=== PATIENT | male | born 1960 | race Two or more races ===

== ENCOUNTER 2020-12-19 06:18 | Outpatient (REF) | payer OTHER, SELFPAY ==
[2020-12-19 07:00] LABS: MANUAL DIFF FLAG NO
[2020-12-19 07:11] LABS: Basophils Percent Auto 0.5 % (0-2); Eosinophils Absolute Auto 0.2 X10*3/uL (0.0-0.4); Eosinophils Percent Auto 2.5 % (0-4); Hematocrit 43.1 % (42-52); Hemoglobin 14.6 g/dl (14.0-18.0); Imm Gran Abs Auto 0.02 X10*3/uL (0.00-0.03); Imm Gran Pct Auto 0.3 % (0.0-0.4); Lymphocytes Absolute Auto 2.4 X10*3/uL (1.2-4.9); Lymphocytes Percent Auto 40.1 % (20-40); Mean Corpuscular HGB Conc 33.9 g/dl (31.0-36.0); Mean Corpuscular Hemoglobin 32.2 pg (27.0-33.0); Mean Corpuscular Volume 94.9 fL (80-98); Mean Platelet Volume 9.6 fL (9.4-12.4); Monocytes Absolute Auto 0.6 X10*3/uL (0.1-1.2); Monocytes Percent Auto 10.8 % (2-11); Neutrophils Absolute Auto 2.7 X10*3/uL (2.0-8.3); Neutrophils Percent Auto 45.8 % (45-73); Platelet Count 248 X10*3/uL (160-400); Red Blood Count 4.54 X10*6/uL (4.60-5.80); Red Cell Distribution Width 11.9 % (11.0-16.0); White Blood Count 5.9 X10*3/uL (4.8-10.8)
[2020-12-19 07:26] LABS: Alanine Aminotransferase 28 U/L (0-40); Albumin Level 4.4 g/dL (3.5-5.0); Alkaline Phosphatase 92 U/L (39-117); Anion Gap 13 (12-20); Aspartate Amino Transferase 18 U/L (5-37); Bilirubin Total 0.8 mg/dL (0.0-1.0); Blood Urea Nitrogen 18 mg/dL (9-16); Calcium 9.4 mg/dL (8.4-10.2); Carbon Dioxide 30 mmol/L (22-29); Chloride 101 mmol/L (96-108); Cholesterol 122 mg/dL; Estimated Glomerular Filt Rate > 60; Glucose Fasting 234 mg/dL (60-99); HDL Cholesterol 47 mg/dL; LDL Cholesterol Calculated 52 mg/dl; Potassium 4.8 mmol/L (3.3-5.1); Sodium 139 mmol/L (135-145); Total Protein 7.5 g/dL (6.5-8.0); Triglycerides 118 mg/dL
[2020-12-19 07:28] LABS: Creatinine Urine 164.51 mg/dL; Microalbum/Creatinine Ratio Ur 19.4 ug/mg cr
[2020-12-19 07:48] LABS: Prostate Specific Antigen Scr 1.48 ng/mL (<0.05-4.0); Thyroid Stimulating Hormone 2.45 uIU/mL (0.32-4.0)
[2020-12-19 08:06] LABS: Estimated Average Glucose 177 mg/dL; Hemoglobin A1c % 7.8 %
[2020-12-23 13:11] LABS: Vitamin D 25-OH, D2 <4 ng/mL; Vitamin D 25-OH, D3 18 ng/mL; Vitamin D 25-OH, Total 18 ng/mL (30-100)
== END 2020-12-19 06:19 | disposition home or self-care (01) ==
LOC: HO.LAB 06:18
PROVIDERS: PCP Internal Medicine; Visit Provider Internal Medicine
DX: Z12.5 Encounter for screening for malignant neoplasm of prostate (principal); E11.65 Type 2 diabetes mellitus with hyperglycemia; E78.5 Hyperlipidemia, unspecified; R53.83 Other fatigue; N39.43 Post-void dribbling
CPT/HCPCS: 36415; 80053; 80061; 82043; 82306; 83036; 84153; 84443; 85025

== ENCOUNTER 2021-01-06 09:10 | Outpatient (REF) | payer OTHER, SELFPAY ==
--- NOTE | ~2021-01-06 | XR_ITS ---
EXAMINATION: XR THORACOLUMBAR SPINE CLINICAL INFORMATION: Pain in thoracic spine. COMPARISON: None TECHNIQUE: The thoracic spine is imaged in 3 views. FINDINGS: There is normal thoracic segmentation with 12 rib-bearing thoracic vertebrae of normal height and normal thoracic kyphosis. There is no thoracic vertebral compression, spondylolisthesis, destructive process, or paraspinal soft tissue swelling. There are changes suggesting diffuse idiopathic skeletal hyperostosis with scattered ossification anterior spinal ligament and partially bridging anterior and some lateral osteophytes. There is no focal significant disc narrowing. No erosive change. There has been prior median sternotomy. XR/XR thoracic spine 2V IMPRESSION: 1. No thoracic vertebral compression, spondylolisthesis, or destructive process. 2. Scattered ossification anterior spinal ligament with multilevel partially bridging anterior and right lateral osteophytes suggesting diffuse idiopathic skeletal hyperostosis (DISH).
--- NOTE | ~2021-01-06 | XR_ITS ---
EXAMINATION: BILATERAL KNEE. LUMBAR SPINE AND CERVICAL SPINE. CLINICAL INFORMATION: Pain and bilateral knee. Pain low back and neck. COMPARISON: None TECHNIQUE: 3 views each knee. 3 views lumbar spine. Three-view cervical spine. FINDINGS: Right knee: There is mild loss of tricompartment joint space with moderate superior and inferior patellar spurring. No abnormal joint effusion seen. No bony erosive changes. There are no loose bodies. Left knee: Minimal loss of tricompartment joint space without loose bodies are bony erosive changes. There is a large anterior superior patellar enthesophyte. No abnormal joint effusion seen. Lumbar spine: There is normal lumbar lordosis. The vertebral heights, alignment and the disc heights are normal. No visible acute fracture, dislocation or lytic process seen. There is ventral spondylosis at L3-L4 and L4-L5 disc levels. No lytic or sclerotic process seen. The paravertebral soft tissues are normal. Cervical spine: There is normal cervical lordosis. The vertebral heights, alignment and disc heights are preserved. There is moderate ventral bridging osteophytes at C3-C4, C4-C5 and C5-C6 disc levels with spondylosis. No acute fracture, lytic or sclerotic process seen. The soft tissues are normal. XR/XR knee LT 3V IMPRESSION: Early mild degenerative changes bilateral knees with a trace suprapatellar moderate size enthesophyte. No abnormal joint effusion on loose body seen. Mild ventral spondylosis L3-L4 and L4-L5 disc levels without any visible acute fracture or subluxation. Moderate ventral bridging osteophytes at spondylosis C3-C4, C4-C5 and C5-C6 disc levels. There is no visible acute fracture or dislocation seen.
--- NOTE | ~2021-01-06 | XR_ITS ---
EXAMINATION: BILATERAL KNEE. LUMBAR SPINE AND CERVICAL SPINE. CLINICAL INFORMATION: Pain and bilateral knee. Pain low back and neck. COMPARISON: None TECHNIQUE: 3 views each knee. 3 views lumbar spine. Three-view cervical spine. FINDINGS: Right knee: There is mild loss of tricompartment joint space with moderate superior and inferior patellar spurring. No abnormal joint effusion seen. No bony erosive changes. There are no loose bodies. Left knee: Minimal loss of tricompartment joint space without loose bodies are bony erosive changes. There is a large anterior superior patellar enthesophyte. No abnormal joint effusion seen. Lumbar spine: There is normal lumbar lordosis. The vertebral heights, alignment and the disc heights are normal. No visible acute fracture, dislocation or lytic process seen. There is ventral spondylosis at L3-L4 and L4-L5 disc levels. No lytic or sclerotic process seen. The paravertebral soft tissues are normal. Cervical spine: There is normal cervical lordosis. The vertebral heights, alignment and disc heights are preserved. There is moderate ventral bridging osteophytes at C3-C4, C4-C5 and C5-C6 disc levels with spondylosis. No acute fracture, lytic or sclerotic process seen. The soft tissues are normal. XR/XR cervical spine 3V IMPRESSION: Early mild degenerative changes bilateral knees with a trace suprapatellar moderate size enthesophyte. No abnormal joint effusion on loose body seen. Mild ventral spondylosis L3-L4 and L4-L5 disc levels without any visible acute fracture or subluxation. Moderate ventral bridging osteophytes at spondylosis C3-C4, C4-C5 and C5-C6 disc levels. There is no visible acute fracture or dislocation seen.
--- NOTE | ~2021-01-06 | XR_ITS ---
EXAMINATION: BILATERAL KNEE. LUMBAR SPINE AND CERVICAL SPINE. CLINICAL INFORMATION: Pain and bilateral knee. Pain low back and neck. COMPARISON: None TECHNIQUE: 3 views each knee. 3 views lumbar spine. Three-view cervical spine. FINDINGS: Right knee: There is mild loss of tricompartment joint space with moderate superior and inferior patellar spurring. No abnormal joint effusion seen. No bony erosive changes. There are no loose bodies. Left knee: Minimal loss of tricompartment joint space without loose bodies are bony erosive changes. There is a large anterior superior patellar enthesophyte. No abnormal joint effusion seen. Lumbar spine: There is normal lumbar lordosis. The vertebral heights, alignment and the disc heights are normal. No visible acute fracture, dislocation or lytic process seen. There is ventral spondylosis at L3-L4 and L4-L5 disc levels. No lytic or sclerotic process seen. The paravertebral soft tissues are normal. Cervical spine: There is normal cervical lordosis. The vertebral heights, alignment and disc heights are preserved. There is moderate ventral bridging osteophytes at C3-C4, C4-C5 and C5-C6 disc levels with spondylosis. No acute fracture, lytic or sclerotic process seen. The soft tissues are normal. XR/XR lumbar spine 2-3V IMPRESSION: Early mild degenerative changes bilateral knees with a trace suprapatellar moderate size enthesophyte. No abnormal joint effusion on loose body seen. Mild ventral spondylosis L3-L4 and L4-L5 disc levels without any visible acute fracture or subluxation. Moderate ventral bridging osteophytes at spondylosis C3-C4, C4-C5 and C5-C6 disc levels. There is no visible acute fracture or dislocation seen.
--- NOTE | ~2021-01-06 | XR_ITS ---
EXAMINATION: BILATERAL KNEE. LUMBAR SPINE AND CERVICAL SPINE. CLINICAL INFORMATION: Pain and bilateral knee. Pain low back and neck. COMPARISON: None TECHNIQUE: 3 views each knee. 3 views lumbar spine. Three-view cervical spine. FINDINGS: Right knee: There is mild loss of tricompartment joint space with moderate superior and inferior patellar spurring. No abnormal joint effusion seen. No bony erosive changes. There are no loose bodies. Left knee: Minimal loss of tricompartment joint space without loose bodies are bony erosive changes. There is a large anterior superior patellar enthesophyte. No abnormal joint effusion seen. Lumbar spine: There is normal lumbar lordosis. The vertebral heights, alignment and the disc heights are normal. No visible acute fracture, dislocation or lytic process seen. There is ventral spondylosis at L3-L4 and L4-L5 disc levels. No lytic or sclerotic process seen. The paravertebral soft tissues are normal. Cervical spine: There is normal cervical lordosis. The vertebral heights, alignment and disc heights are preserved. There is moderate ventral bridging osteophytes at C3-C4, C4-C5 and C5-C6 disc levels with spondylosis. No acute fracture, lytic or sclerotic process seen. The soft tissues are normal. XR/XR knee RT 3V IMPRESSION: Early mild degenerative changes bilateral knees with a trace suprapatellar moderate size enthesophyte. No abnormal joint effusion on loose body seen. Mild ventral spondylosis L3-L4 and L4-L5 disc levels without any visible acute fracture or subluxation. Moderate ventral bridging osteophytes at spondylosis C3-C4, C4-C5 and C5-C6 disc levels. There is no visible acute fracture or dislocation seen.
== END 2021-01-06 09:11 | disposition home or self-care (01) ==
LOC: HO.XRAY 09:10
PROVIDERS: PCP Internal Medicine; Visit Provider Internal Medicine
DX: M54.5 Low back pain (principal); M25.562 Pain in left knee; M54.6 Pain in thoracic spine; M25.561 Pain in right knee; M54.2 Cervicalgia
CPT/HCPCS: 72040; 72070; 72100; 73562

== ENCOUNTER 2021-11-06 07:04 | Emergency (ER) | payer OTHER, SELFPAY ==
[2021-11-06 07:12] VITALS: BP 136/75; PULSE 89; RESP 18; TEMP 36.6; O2SAT 99; BMI 27.4
[2021-11-06 07:29] LABS: Hematocrit 41.7 % (42.0-52.0); Hemoglobin 14.6 g/dl (14.0-18.0); Mean Corpuscular Hemoglobin 32.2 pg (27.0-33.0); Mean Corpuscular Volume 92.1 fL (80.0-98.0); Mean Platelet Volume 9.6 fL (9.4-12.4); Platelet Count 241 X10*3/uL (160-400); Red Blood Count 4.53 X10*6/uL (4.60-5.80); Red Cell Distribution Width 11.9 % (11.0-16.0); White Blood Count 5.8 X10*3/uL (4.8-10.8)
[2021-11-06 07:47] LABS: Anion Gap 13 (12-20); Blood Urea Nitrogen 17 mg/dL (9-16); Calcium 9.2 mg/dL (8.4-10.2); Carbon Dioxide 24 mmol/L (22-29); Chloride 103 mmol/L (96-108); Creatinine Clr Calc Pharmacy 55.7; Estimated Glomerular Filt Rate 53; Glucose Random 219 mg/dL (60-115); Sodium 135 mmol/L (135-145)
[2021-11-06 08:05] VITALS: PULSE 97; RESP 20; TEMP 37.5; O2SAT 100
[2021-11-06 08:16] VITALS: BP 149/81; PULSE 90; RESP 18; O2SAT 100
--- NOTE | 2021-11-06 08:22 | ED_ITS ---
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 Related Data Home Medications Medication Instructions Recorded Confirmed amlodipine 5 mg tablet 5 mg PO DAILY 05/09/20 09/13/21 trazodone 50 mg tablet 50 mg PO BEDTIME PRN 05/09/20 09/13/21 Previous Rx's Medication Instructions Recorded acetaminophen 500 mg tablet 500 mg PO Q6H PRN 30 Days #100 tab 09/07/20 carvedilol 12.5 mg tablet 12.5 mg PO BID #60 tab 11/27/20 ergocalciferol (vitamin D2) 1,250 1,250 mcg PO QWEEK 90 Days #13 cap 01/04/21 mcg (50,000 unit) capsule cane #1 ea 02/13/21 cholecalciferol (vitamin D3) 25 25 mcg PO DAILY 90 Days #90 cap 05/15/21 mcg (1,000 unit) capsule atorvastatin 40 mg tablet 40 mg PO DAILY 90 Days #90 tab 05/31/21 pioglitazone 45 mg tablet 45 mg PO DAILY 90 Days #90 tab 07/17/21 dulaglutide 1.5 mg/0.5 mL 1.5 mg (0.5 mL) SUBCUT QWEEK 30 08/20/21 subcutaneous pen injector Days #2.5 ml (Trulicity) metformin 1,000 mg tablet 1,000 mg PO BID #60 tab 09/14/21 aspirin 81 mg tablet,delayed 81 mg PO DAILY #90 tab 10/29/21 release Allergies Allergy/AdvReac Type Severity Reaction Status Date / Time No Known Allergies Allergy Verified 09/13/21 12:38 Review of Systems Review of Systems: Pertinent positives and negatives as stated in HPI 10 point review of systems is otherwise negative. [facility] Past Medical History Source: nursing notes reviewed Medical History CAD (coronary artery disease) Diabetes mellitus DISH (diffuse idiopathic skeletal hyperostosis) Essential hypertension Fatigue Hypovitaminosis D Insomnia Left knee pain Lumbar pain Mild major depression, single episode Neck pain Polyarthralgia Pure hypercholesterolemia with target low density lipoprotein (LDL) cholesterol less than 70 mg/dL Right knee pain Skin lesion Thoracic spine pain Surgical History S/P CABG x 3 Family History Family History Father Diabetes Hypertension CVD (cardiovascular disease) COPD (chronic obstructive pulmonary disease) Mother Diabetes Hypertension CVD (cardiovascular disease) Family/Other Mental health disorder Social History Social History Housing: Apartment Alcohol intake: current Alcohol intake frequency: does not drink Alcohol type: beer, wine and hard liquor Patient Tobacco Use Status: Never used Tobacco e-Cigarette/Vaping Use: Never Used Second Hand Smoke Exposure: No Use of substances other than those prescribed or required for medical reasons: No Advance Directives: No Advance Directives Information Provided: No service: No Current occupational status: disabled Cognitive needs: No Hearing needs: No Vision needs: No Physical Exam Vital Signs: Vital Signs: Last Vital Signs Temp 99.5 F 11/06/21 08:05 Pulse 90 11/06/21 08:16 Resp 18 11/06/21 08:16 BP 149/81 H 11/06/21 08:16 Pulse Ox 100 11/06/21 08:16 BMI result Body Mass Index 27.4 VITAL SIGNS: Reviewed. GENERAL: Well developed, well nourished, in no acute distress. HEAD: Normocephalic/atraumatic EYES: PERRLA, EOMI EARS: Ext canals without abnormality OROPHARYNX: no oral lesions noted, posterior pharynx clear LUNGS: Normal breath sounds. No adventitious sounds or accessory muscle use. SpO2<100> CARDIOVASCULAR: Regular rate and rhythm without noted murmurs, no JVD or lower extremity edema. ABDOMEN: Soft, non-tender, non-distended with bowel sounds. MUSCULOSKELETAL: No tenderness, deformities, or effusions noted on gross inspection. EXTREMITIES: No cyanosis, clubbing or edema. SKIN: Inspection of the skin reveals no rashes, there is a superficial reddened area approximately 12 x 6 cm without evidence induration or warmth and appears to be restricted to the epidermis. Otherwise neurovascular intact distally NEUROLOGIC: Alert and oriented x 4. Strength and sensation to light touch were grossly intact x 4. Course Course Course Narrative: 61-year-old male with history and clinical presentation consistent with diabetic dermopathy.Review of all investigations negative for acute findings and low clinical suspicion for any infectious or vasculitis any etiology and no evidence to suggest DVT. Patient informed of presumed diagnosis and given instructions to use [id number] hydrocortisone cream And discharged home in stable condition. MDM - Extremity Injury (Lower) Lab Data Result diagrams: 11/06/21 07:20 11/06/21 07:20 Labs: Lab Results 11/06/21 11/06/21 Range/Units 07:20 07:20 WBC 5.8 (4.8-10.8) X10*3/uL RBC 4.53 L (4.60-5.80) X10*6/uL Hgb 14.6 (14.0-18.0) g/dl Hct 41.7 L (42.0-52.0) % MCV 92.1 (80.0-98.0) fL MCH 32.2 (27.0-33.0) pg MCHC 35.0 (31.0-36.0) g/dl RDW 11.9 (11.0-16.0) % Plt Count 241 (160-400) X10*3/uL MPV 9.6 (9.4-12.4) fL Absolute Nucleated RBC 0.000 (0.0-0.012) X10*3/uL Nucleated RBC % (auto) 0.0 (0.0-0.2) /100WBC Sodium 135 (135-145) mmol/L Potassium 5.0 (3.3-5.1) mmol/L Chloride 103 (96-108) mmol/L Carbon Dioxide 24 (22-29) mmol/L Anion Gap 13 (12-20) BUN 17 H (9-16) mg/dL Creatinine 1.36 (0.5-1.4) mg/dL Estim Creat Clear Calc 55.7 Estimated GFR 53 Random Glucose 219 H (60-115) mg/dL Calcium 9.2 (8.4-10.2) mg/dL Discharge Plan Discharge Clinical Impression: DM type 2 with diabetic dermopathy, Diabetes Patient Disposition: Home, Self-Care Instructions: Diabetes and Your Skin (ED) Additional Instructions: 1. Reanudar todos los medicamentos caseros seg?n lo prescrito. 2. Tiene bradley afecci?n llamada dermopat?a diab?jethro que se puede tratar con crema de hidrocortisona de venta [place]. Debe mantener las piernas cubiertas mientras usa los esteroides, ya que la exposici?n al stephen puede causar bradley decoloraci?n adicional de la piel. 3. Suspenda los antibi?ticos que est? tomando ya que esto no es compatible con bradley infecci?n. 4. Mariluz un seguimiento con rodriguez proveedor de atenci?n primaria. Enviar? mi nota a rodriguez proveedor de atenci?n primaria para obtener informaci?n adicional. Regrese a la sly de emergencias si los s?ntomas empeoran. Prescriptions: No Action carvedilol 12.5 mg tablet 12.5 mg PO BID Qty: 60 1RF (DME) cane Device See Rx Instructions .Route Qty: 1 0RF Rx Instructions: As directed atorvastatin 40 mg tablet 40 mg PO DAILY 90 Days Qty: 90 3RF pioglitazone 45 mg tablet 45 mg PO DAILY 90 Days Qty: 90 1RF Trulicity 1.5 mg/0.5 mL pen injector 1.5 mg subcut QWEEK 30 Days Qty: 2.5 6RF metformin 1,000 mg tablet 1,000 mg PO BID Qty: 60 6RF aspirin 81 mg tablet,delayed release (DR/EC) 81 mg PO DAILY Qty: 90 1RF amlodipine 5 mg tablet 5 mg PO DAILY 0RF trazodone 50 mg tablet 50 mg PO BEDTIME PRN0RF acetaminophen 500 mg tablet 500 mg PO Q6H PRN (Reason: fever or pain) 30 Days Qty: 100 6RF ergocalciferol (vitamin D2) 1,250 mcg (50,000 unit) capsule 1,250 mcg PO QWEEK 90 Days Qty: 13 0RF cholecalciferol (vitamin D3) 25 mcg (1,000 unit) capsule 25 mcg PO DAILY 90 Days Qty: 90 1RF Referrals: Sylvia Denny MD [Primary Care Provider] - Print Language: German
== END 2021-11-06 09:39 | disposition home or self-care (01) ==
PROVIDERS: Emergency Provider Student in an Organized Health Care Education/Training Program; PCP Internal Medicine
DX: E11.620 Type 2 diabetes mellitus with diabetic dermatitis (principal); E78.00 Pure hypercholesterolemia, unspecified; Z79.02 Long term (current) use of antithrombotics/antiplatelets
CPT/HCPCS: 36415; 80048; 85027; 99283; 99284

== ENCOUNTER 2021-11-22 07:58 | Outpatient (REF) | payer OTHER, SELFPAY ==
[2021-11-22 09:40] LABS: Creatinine Urine 144.76 mg/dL; Microalbum/Creatinine Ratio Ur 22.1 ug/mg cr
[2021-11-22 09:55] LABS: Alanine Aminotransferase 28 U/L (0-40); Albumin Level 4.5 g/dL (3.5-5.0); Alkaline Phosphatase 99 U/L (39-117); Anion Gap 13 (12-20); Aspartate Amino Transferase 22 U/L (5-37); Bilirubin Total 0.5 mg/dL (0.0-1.0); Blood Urea Nitrogen 15 mg/dL (9-16); Calcium 9.2 mg/dL (8.4-10.2); Carbon Dioxide 29 mmol/L (22-29); Chloride 103 mmol/L (96-108); Cholesterol 96 mg/dL; Estimated Glomerular Filt Rate > 60; Glucose Fasting 204 mg/dL (60-99); HDL Cholesterol 35 mg/dL; LDL Cholesterol Calculated 51 mg/dl; Potassium 4.7 mmol/L (3.3-5.1); Sodium 140 mmol/L (135-145); Total Protein 7.5 g/dL (6.5-8.0); Triglycerides 54 mg/dL
[2021-11-23 23:02] LABS: Lyme Blot 6.36 index
[2021-11-24 09:25] LABS: Lyme Abs Screen POSITIVE
[2021-11-27 06:07] LABS: Vitamin D 25-OH, D2 13 ng/mL; Vitamin D 25-OH, D3 18 ng/mL; Vitamin D 25-OH, Total 31 ng/mL (30-100)
[2021-11-27 15:42] LABS: 18 KD (IgG) Band REACTIVE; 23 KD (IgG) Band NON-REACTIVE; 23 KD (IgM) Band REACTIVE; 28 KD (IgG) Band NON-REACTIVE; 30 KD (IgG) Band NON-REACTIVE; 39 KD (IgM) Band NON-REACTIVE; 39KD (IgG) Band REACTIVE; 41 KD (IgM) Band REACTIVE; 41KD (IgG) Band REACTIVE; 45 KD (IgG) Band NON-REACTIVE; 58 KD (IgG) Band NON-REACTIVE; 66 KD (IgG) Band NON-REACTIVE; 93 KD (IgG) Band NON-REACTIVE; Lyme IgG Blot Interp NEGATIVE (NEGATIVE); Lyme IgM Blot Interp POSITIVE (NEGATIVE)
== END 2021-11-22 07:59 | disposition home or self-care (01) ==
LOC: HO.LAB 07:58
PROVIDERS: Nurse Practitioner Family; Absent Provider Internal Medicine; PCP Internal Medicine; Visit Provider Internal Medicine
DX: E55.9 Vitamin D deficiency, unspecified (principal); E11.65 Type 2 diabetes mellitus with hyperglycemia; E78.5 Hyperlipidemia, unspecified; L98.9 Disorder of the skin and subcutaneous tissue, unspecified
CPT/HCPCS: 36415; 80053; 80061; 82043; 82306; 86617; 86618

== ENCOUNTER → 2022-01-26 11:02 | Outpatient (BNVA) | payer OTHER, SELFPAY | PROVIDERS: PCP Internal Medicine; Visit Provider Internal Medicine | DX: A69.20 Lyme disease, unspecified (principal) | CPT/HCPCS: 99202 ==

== ENCOUNTER 2022-05-21 07:12 | Outpatient (REF) | payer OTHER, SELFPAY ==
[2022-05-21 08:40] LABS: Creatinine Urine 238.99 mg/dL; Microalbum/Creatinine Ratio Ur 51.8 ug/mg cr
[2022-05-21 09:11] LABS: Alanine Aminotransferase 21 U/L (0-40); Albumin Level 4.3 g/dL (3.5-5.0); Alkaline Phosphatase 104 U/L (39-117); Anion Gap 13 (12-20); Aspartate Amino Transferase 19 U/L (5-37); Bilirubin Total 0.7 mg/dL (0.0-1.0); Blood Urea Nitrogen 14 mg/dL (9-16); Calcium 9.5 mg/dL (8.4-10.2); Carbon Dioxide 29 mmol/L (22-29); Chloride 98 mmol/L (96-108); Cholesterol 118 mg/dL; Estimated Glomerular Filt Rate > 60; Glucose Fasting 264 mg/dL (60-99); HDL Cholesterol 38 mg/dL; LDL Cholesterol Calculated 58 mg/dl; Potassium 4.9 mmol/L (3.3-5.1); Sodium 135 mmol/L (135-145); Total Protein 7.3 g/dL (6.5-8.0); Triglycerides 111 mg/dL; Vitamin D 25-OH Total 18.3 ng/mL (>30)
== END 2022-05-21 07:13 | disposition home or self-care (01) ==
LOC: HO.LAB 07:12
PROVIDERS: PCP Internal Medicine; Visit Provider Internal Medicine
DX: E11.65 Type 2 diabetes mellitus with hyperglycemia (principal); E55.9 Vitamin D deficiency, unspecified; E78.5 Hyperlipidemia, unspecified
CPT/HCPCS: 36415; 80053; 80061; 82043; 82306

== ENCOUNTER 2023-01-10 07:04 | Outpatient (REF) | payer OTHER, SELFPAY ==
[2023-01-10 09:36] LABS: Alanine Aminotransferase 17 U/L (0-40); Albumin Level 4.3 g/dL (3.5-5.0); Alkaline Phosphatase 87 U/L (39-117); Aspartate Amino Transferase 17 U/L (5-37); Bilirubin Direct 0.3 mg/dL (0.0-0.5); Bilirubin Total 0.8 mg/dL (0.0-1.0); Total Protein 7.5 g/dL (6.5-8.0)
[2023-01-10 09:51] LABS: Alanine Aminotransferase 17 U/L (0-40); Albumin Level 4.2 g/dL (3.5-5.0); Alkaline Phosphatase 86 U/L (39-117); Anion Gap 13 (12-20); Aspartate Amino Transferase 18 U/L (5-37); Bilirubin Total 0.8 mg/dL (0.0-1.0); Blood Urea Nitrogen 16 mg/dL (9-16); Calcium 9.5 mg/dL (8.4-10.2); Carbon Dioxide 27 mmol/L (22-29); Chloride 106 mmol/L (96-108); Cholesterol 79 mg/dL; Estimated Glomerular Filt Rate > 60; Glucose Fasting 204 mg/dL (60-99); HDL Cholesterol 37 mg/dL; LDL Cholesterol Calculated 26 mg/dl; Potassium 5.2 mmol/L (3.3-5.1); Sodium 141 mmol/L (135-145); Total Protein 7.4 g/dL (6.5-8.0); Triglycerides 81 mg/dL
[2023-01-10 10:09] LABS: Vitamin D 25-OH Total 23.6 ng/mL (>30)
[2023-01-10 11:32] LABS: Microalbum/Creatinine Ratio Ur 21.2 ug/mg cr
== END 2023-01-10 07:05 | disposition home or self-care (01) ==
LOC: HO.LAB 07:04
PROVIDERS: Absent Provider Internal Medicine; PCP Internal Medicine; Visit Provider Internal Medicine
DX: I25.118 Atherosclerotic heart disease of native coronary artery with other forms of angina pectoris (principal); E78.5 Hyperlipidemia, unspecified; E11.9 Type 2 diabetes mellitus without complications; R80.9 Proteinuria, unspecified; E55.9 Vitamin D deficiency, unspecified
CPT/HCPCS: 36415; 80053; 80061; 80076; 82043; 82306

== ENCOUNTER 2023-01-17 08:01 | Outpatient (AMB) | payer OTHER, SELFPAY ==
[2023-01-17 08:10] VITALS: BP 134/76; PULSE 77; O2SAT 97; BMI 26.8
--- NOTE | 2023-01-17 08:10 | MHC.PC.OV ---
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 Accompanied by: Self / Same As Patient Allergies No Known Allergies Allergy (Verified 01/17/23 08:24) Medication List - Last Reconciled 01/17/23 by Sylvia Peters MD acetaminophen 500 mg PO Q6H PRN 30 days amlodipine 5 mg PO DAILY 90 days aspirin 81 mg PO DAILY atorvastatin 40 mg PO DAILY 90 days baclofen 5 mg PO BEDTIME 90 days cane As directed carvedilol 12.5 mg PO BID 90 days cholecalciferol (vitamin D3) 25 mcg PO DAILY 90 days dulaglutide (Trulicity) 3 mg (0.5 mL) subcut QWEEK 30 days meloxicam 15 mg PO DAILY 90 days metformin 1,000 mg PO BID 90 days pioglitazone 45 mg PO DAILY 90 days trazodone 50 mg PO BEDTIME PRN 90 days Tobacco use date assessed: 09/26/22 Dental Screening Dental Screen Date: 01/17/23 Did you have a dental visit in the last 12 months?: Yes Did you have a dental problem in the last 6 months where you did not have access to dental care?: No Was dental information given to patient?: Patient has dentist HPI HPI Comments History of Present Illness Details This is a 62-year-old male with mild major depression and diabetes mellitus that comes for his physical exam. Depression still present and I will start him on fluoxetine. A1c has improved but still not on goal and I will increase Trulicity. Last colonoscopy was less than 2 years ago at [facility] as per patient and he said he is in a 5 year plan. Complains of some chest pain and dyspnea on exertion and this is follow by cardiology which is planning to do a cardiac catheterization. [facility] Medical History (Updated 01/17/23 @ 08:35 by Sylvia Peters MD) CAD (coronary artery disease) Diabetes mellitus DISH (diffuse idiopathic skeletal hyperostosis) Essential hypertension Fatigue Hypovitaminosis D Insomnia Left knee pain Lumbar pain Mild major depression, single episode Neck pain Polyarthralgia Pure hypercholesterolemia with target low density lipoprotein (LDL) cholesterol less than 70 mg/dL Right knee pain Skin lesion Thoracic spine pain Surgical History S/P CABG x 3 Family History Father Diabetes Hypertension CVD (cardiovascular disease) COPD (chronic obstructive pulmonary disease) Mother Diabetes Hypertension CVD (cardiovascular disease) Family/Other Mental health disorder Sister Breast cancer Social History (Updated 01/17/23 @ 08:29 by Sylvia Peters MD) Housing: Apartment Alcohol intake: current Alcohol intake frequency: a few times a month Alcohol type: beer Patient Tobacco Use Status: Never used Tobacco e-Cigarette/Vaping Use: Never Used Second Hand Smoke Exposure: No service: No Current occupational status: disabled Cognitive needs: No Hearing needs: No Vision needs: Yes Questionnaire PHQ-9 Over the last 2 weeks, how often have you been bothered by any of the following problems? 1. Little interest or pleasure in doing things: several days 2. Feeling down, depressed, or hopeless: several days 3. Trouble falling or staying asleep, or sleeping too much: nearly every day 4. Feeling tired or having little energy: several days 5. Poor appetite or overeating: several days 6. Feeling bad about yourself - or that you are a failure or have let yourself or your family down: not at all 7. Trouble concentrating on things, such as reading the newspaper or watching television: not at all 8. Moving or speaking so slowly that other people could have noticed. Or the opposite - being so fidgety or restless that you have been moving around a lot more than usual: not at all 9. Thoughts that you would be better off or of hurting yourself in some way: not at all Total score: 7 Depression Screening Interpretation: Positive Depression Screening Follow-up: Existing condition and In treatment [id number] - PHQ-9 Billing: Yes Source: Developed by Drs. David Murillo, Mahi Kunz, Baldomero Magana and colleagues, with an educational tammy from [employer]. Thrive Questionnaire Date Thrive assessed: 09/26/22 AUDIT C Alcohol Use Questionnaire (AUDIT-C) 1. How often do you have a drink containing alcohol?: Monthly or less 2. How many drinks containing alcohol do you have on a typical day when you are drinking?: 1 or 2 3. How often do you have six or more drinks on one occasion?: Never Total Score: 1 Score Reviewed/Action Taken: No CHANTE-7 AMB Questionnaire CHANTE-7 Date CHANTE - 7 assessed: 09/26/22 Source: Developed by Drs. David Murillo, Mahi Kunz, Baldomero Magana and colleagues, with an educational tammy from [employer]. Review of Systems Const All systems reviewed & are unremarkable except as noted in HPI and below Eyes Reports no additional complaints, Denies change in vision and Denies other visual disturbances Card Denies chest pain at rest, Reports chest pain with activity, Denies edema, Denies irregular heart rhythm, Denies claudication, Denies dyspnea, Reports dyspnea on exertion, Denies orthopnea, Denies paroxysmal nocturnal dyspnea and Denies slow heart rate Resp Denies cough, Denies dyspnea and Reports dyspnea on exertion GI Denies abdominal pain, Denies change in bowel habits, Denies excessive flatus, Denies nausea and Denies vomiting Denies urinary hesitancy, Denies urinary incontinence and Denies urinary urgency Musc Denies abnormal gait, Denies atrophy, Denies deformity and Denies limited range of motion Skin/Breast Denies bleeding lesions, Denies changing lesions and Denies rash Neuro Denies abnormal gait and Denies lack of coordination Physical exam (Primary Care) Vital Signs: Last Vital Signs Pulse 77 01/17/23 08:10 BP 134/76 01/17/23 08:10 Pulse Ox 97 01/17/23 08:10 Oxygen Delivery Method Room Air 01/17/23 08:10 BMI result Body Mass Index 26.8 Tobacco/Smoking Status: Tobacco use Status Tobacco use date assessed 09/26/22 01/17/23 08:12 Patient Tobacco Use Status Never used Tobacco 01/17/23 08:29 e-Cigarette/Vaping Use Never Used 01/17/23 08:29 PHQ-9: PHQ-9 Score PHQ-9: Total score 7 01/17/23 08:27 Depression Screening Interpretation: Positive Depression Screening Follow-up: Existing condition and In treatment Thrive Assessment: Date of Thrive Assessment Date Thrive assessed 09/26/22 01/17/23 08:12 Const Orientation/consciousness: patient oriented x3 HENMT Head: Yes normal to inspection, Yes normocephalic and Yes atraumatic Ears: external ears normal Eyes General: appearance normal, both eyes and all related structures Eyelids: Yes eyelids normal Conjunctivae: conjunctivae normal Neck Neck: Yes normal visual inspection and Yes supple Resp Effort & Inspection: normal respiratory effort Auscultation: clear to auscultation bilaterally Cardio Jugular venous distension: no JVD Rate: regular rate Rhythm: regular rhythm Heart sounds: S1 normal heart sound present and S2 normal heart sound present GI Inspection: Yes normal to inspection Palpation (GI): Soft to palpation and nontender Auscultation: normal bowel sounds Skin General skin exam: no rashes or lesions noted Neuro General: patient oriented x3 and no focal motor deficits Extrem General: Yes full ROM Psych Appearance: grossly normal Results AMB Hemoglobin A1c AMB Hemoglobin A1c 7.3 % Last Edit by Emily Lennon CMA on 01/17/23 08:37 Assessment and Plan Assessment & Plan (1) Physical exam: Code(s): Z00.00 - Encounter for general adult medical examination without abnormal findings Plan: Repeat in a year (2) Mild major depression, single episode: Code(s): F32.0 - Major depressive disorder, single episode, mild Plan: Start fluoxetine. (3) Diabetes mellitus: Code(s): E11.9 - Type 2 diabetes mellitus without complications Qualifiers: Diabetes mellitus type: type 2 Diabetes mellitus skilled nursing insulin use: without skilled nursing use Diabetes mellitus complication status: with hyperglycemia Qualified Code(s): E11.65 - Type 2 diabetes mellitus with hyperglycemia Plan: Continue metformin and Actos. Increase Trulicity. A1c goal is equal or less than 7%. Orders: Orders Potassium Today E87.5 - Hyperkalemia Lipid Panel 4 Months E78.5 - Hyperlipidemia, unspecified Vitamin D 25-OH Total 4 Months E55.9 - Vitamin D deficiency, unspecified Microalbumin, Random (w Creat) 4 Months E11.9 - Type 2 diabetes mellitus without complications Vitamin B12 and Folate 4 Months E53.8 - Deficiency of other specified B group vitamins Comprehensive [place]. Panel Fast 4 Months E11.65 - Type 2 diabetes mellitus with hyperglycemia AMB Hemoglobin A1c Today E11.9 - Type 2 diabetes mellitus without complications Medications: New dulaglutide (Trulicity) 4.5 mg (0.5 mL) subcut QWEEK 90 days 6.5 mL 1RF E11.9 - Type 2 diabetes mellitus without complications fluoxetine 10 mg PO DAILY 90 days 90 tabs 1RF F32.0 - Major depressive disorder, single episode, mild fluocinolone acetonide oil 0.01% (DermOtic Oil) 5 drps otic (ears) BID 7 days 20 mL 0RF Refilled cholecalciferol (vitamin D3) 25 mcg PO DAILY 90 days 90 caps 1RF Discontinued dulaglutide (Trulicity) Discontinued Reason: Patient Completed Course 3 mg (0.5 mL) subcut QWEEK 30 days 2.5 mL 6RF E11.9 - Type 2 diabetes mellitus without complications Coding Level of Care Code Est Pt Prev Care 40-64y(04971) Diagnoses Physical exam Z00.00 Mild major depression, single episode F32.0 Diabetes mellitus E11.65 Diabetes mellitus type: type 2 Diabetes mellitus buttermaker continuous churn insulin use: without skilled nursing use Diabetes mellitus complication status: with hyperglycemia Time Spent (min) 34
== END 2023-01-17 08:35 | disposition home or self-care (01) ==
PROVIDERS: PCP Internal Medicine; Visit Provider Internal Medicine
DX: Z00.00 Encounter for general adult medical examination without abnormal findings (principal); F32.0 Major depressive disorder, single episode, mild; E11.65 Type 2 diabetes mellitus with hyperglycemia; E11.9 Type 2 diabetes mellitus without complications
CPT/HCPCS: 83036; 99396

== ENCOUNTER 2023-05-03 07:00 | Outpatient (REF) | payer OTHER, SELFPAY ==
[2023-05-03 08:20] LABS: Alanine Aminotransferase 21 U/L (0-40); Albumin Level 4.5 g/dL (3.5-5.0); Alkaline Phosphatase 94 U/L (39-117); Anion Gap 13 (12-20); Aspartate Amino Transferase 20 U/L (5-37); Blood Urea Nitrogen 16 mg/dL (9-16); Calcium 9.7 mg/dL (8.4-10.2); Carbon Dioxide 27 mmol/L (22-29); Chloride 103 mmol/L (96-108); Cholesterol 103 mg/dL (<200); Estimated Glomerular Filt Rate > 60; Glucose Fasting 183 mg/dL (60-99); HDL Cholesterol 36 mg/dL (>40); LDL Cholesterol Calculated 45 mg/dL (<100); Potassium 4.4 mmol/L (3.3-5.1); Sodium 139 mmol/L (135-145); Total Protein 8.1 g/dL (6.5-8.0); Triglycerides 114 mg/dL (<150)
[2023-05-03 08:39] LABS: Vitamin D 25-OH Total 29.5 ng/mL (>30)
[2023-05-03 08:45] LABS: Vitamin B12 1197 pg/mL (200-900)
[2023-05-03 08:54] LABS: Creatinine Urine 134.56 mg/dL; Microalbum/Creatinine Ratio Ur 27.4 ug/mg cr (<30)
== END 2023-05-03 07:01 | disposition home or self-care (01) ==
LOC: HO.LAB 07:00
PROVIDERS: PCP Internal Medicine; Visit Provider Internal Medicine
DX: E55.9 Vitamin D deficiency, unspecified (principal); E78.5 Hyperlipidemia, unspecified; E53.8 Deficiency of other specified B group vitamins; E11.65 Type 2 diabetes mellitus with hyperglycemia
CPT/HCPCS: 36415; 80053; 80061; 82043; 82306; 82570; 82607; 82746

== ENCOUNTER 2023-05-23 07:24 | Outpatient (AMB) | payer OTHER, SELFPAY ==
--- NOTE | 2023-05-23 07:45 | A.OFFPC_ITS ---
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 Accompanied by: Self / Same As Patient Allergies No Known Allergies Allergy (Verified 05/23/23 08:07) Medication List - Last Reconciled 05/23/23 by Sylvia Peters MD acetaminophen 500 mg PO Q6H PRN 30 days amlodipine 5 mg PO DAILY 90 days aspirin 81 mg PO DAILY atorvastatin 40 mg PO DAILY 90 days baclofen 5 mg PO BEDTIME 90 days cane As directed carvedilol 12.5 mg PO BID 90 days cholecalciferol (vitamin D3) 25 mcg PO DAILY 90 days dulaglutide (Trulicity) 4.5 mg (0.5 mL) subcut QWEEK 90 days fluocinolone acetonide oil 0.01% (DermOtic Oil) 5 drps otic (ears) BID 7 days fluoxetine 10 mg PO DAILY 90 days meloxicam 15 mg PO DAILY 90 days metformin 1,000 mg PO BID 90 days pioglitazone 45 mg PO DAILY 90 days trazodone 50 mg PO BEDTIME PRN 90 days Tobacco use date assessed: 09/26/22 Dental Screening Dental Screen Date: 05/23/23 Did you have a dental visit in the last 12 months?: Yes Did you have a dental problem in the last 6 months where you did not have access to dental care?: No Was dental information given to patient?: Patient has dentist HPI HPI Comments History of Present Illness Details This is a 62-year-old male with diabetes mellitus type 2, hypertension, pure hypercholesterolemia and mild major depression that comes today for follow- up on his conditions. A1c not on goal and he admits not been compliant with Actos. LDL within goal. Blood pressure stable. Depression well controlled with fluoxetine. No chest pain or shortness of breath. [facility] Medical History Skin lesion DISH (diffuse idiopathic skeletal hyperostosis) Mild major depression, single episode Hypovitaminosis D Thoracic spine pain Lumbar pain Right knee pain Left knee pain Neck pain Polyarthralgia Fatigue Pure hypercholesterolemia with target low density lipoprotein (LDL) cholesterol less than 70 mg/dL Insomnia CAD (coronary artery disease) Essential hypertension Diabetes mellitus Surgical History S/P CABG x 3 Family History Father Diabetes Hypertension CVD (cardiovascular disease) COPD (chronic obstructive pulmonary disease) Mother Diabetes Hypertension CVD (cardiovascular disease) Family/Other Mental health disorder Sister Breast cancer Social History Housing: Apartment Alcohol intake: current Alcohol intake frequency: a few times a month Alcohol type: beer Patient Tobacco Use Status: Never used Tobacco e-Cigarette/Vaping Use: Never Used Second Hand Smoke Exposure: No service: No Current occupational status: disabled Cognitive needs: No Hearing needs: No Vision needs: Yes Questionnaire Thrive Questionnaire Date Thrive assessed: 09/26/22 CHANTE-7 AMB Questionnaire CHANTE-7 Date CHANTE - 7 assessed: 09/26/22 Source: Developed by Drs. David Murillo, Mahi Kunz, Baldomero Magana and colleagues, with an educational tammy from [employer]. Review of Systems Const All systems reviewed & are unremarkable except as noted in HPI and below Eyes Reports no additional complaints, Denies change in vision and Denies other visual disturbances Card Denies chest pain at rest, Denies chest pain with activity, Denies edema, Denies irregular heart rhythm, Denies claudication, Denies dyspnea, Denies dyspnea on exertion, Denies orthopnea, Denies paroxysmal nocturnal dyspnea and Denies slow heart rate Resp Denies cough, Denies dyspnea and Denies dyspnea on exertion GI Denies abdominal pain, Denies change in bowel habits, Denies excessive flatus, Denies nausea and Denies vomiting Denies urinary hesitancy, Denies urinary incontinence and Denies urinary urgency Musc Denies abnormal gait, Denies atrophy, Denies deformity and Denies limited range of motion Skin/Breast Denies bleeding lesions, Denies changing lesions and Denies rash Neuro Denies abnormal gait, Denies behavioral changes and Denies lack of coordination Psych Denies behavioral changes Physical exam (Primary Care) Vital Signs: Last Vital Signs BP 120/68 05/23/23 07:49 BMI result Body Mass Index 27.3 Tobacco/Smoking Status: Tobacco use Status Tobacco use date assessed 09/26/22 05/23/23 07:47 Patient Tobacco Use Status Never used Tobacco 05/23/23 07:47 e-Cigarette/Vaping Use Never Used 05/23/23 07:47 Thrive Assessment: Date of Thrive Assessment Date Thrive assessed 09/26/22 05/23/23 07:47 Eyes General: appearance normal, both eyes and all related structures Eyelids: Yes eyelids normal Conjunctivae: conjunctivae normal Neck Neck: Yes normal visual inspection and Yes supple Resp Effort & Inspection: normal respiratory effort Auscultation: clear to auscultation bilaterally Cardio Jugular venous distension: no JVD Rate: regular rate Rhythm: regular rhythm Heart sounds: S1 normal heart sound present and S2 normal heart sound present Extrem General: Yes full ROM Office Procedures Flu Questionnaire Does the patient have a severe egg allergy?: No Results AMB Hemoglobin A1c AMB Hemoglobin A1c 8.0 % Last Edit by SILVIO Knight on 05/23/23 07:5 6 Immunizations flu vacc [id number] 6mos up(PF) 60 mcg(15 mcgx4)/0.5 mL IM syringe Performing Provider: Sylvia Peters MD [facility] Documented (not given) by: SILVIO Knight on 05/23/23 07:54 Reason Not Given: Patient Refused Results Reviewed Results Reviewed: Laboratory Last Values Hgb A1c (Clinic) 8.0 % (4.0-6.0) H 05/23/23 07:45 Assessment and Plan Assessment & Plan (1) Mild major depression, single episode: Code(s): F32.0 - Major depressive disorder, single episode, mild Plan: Continue fluoxetine. 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 A1c goal is equal or less than 7%. (3) Essential hypertension: Code(s): I10 - Essential (primary) hypertension Plan: Continue amlodipine. Blood pressure goal is equal or less than 130/80. (4) Pure hypercholesterolemia with target low density lipoprotein (LDL) cholesterol less than 70 mg/dL: Code(s): E78.00 - Pure hypercholesterolemia, unspecified Plan: Continue statins. LDL goal is less than 70. Orders: Orders PSA,Total (Free>4and<10) 4 Months Z12.5 - Encounter for screening for malignant neoplasm of prostate Vitamin D 25-OH Total 4 Months E55.9 - Vitamin D deficiency, unspecified Microalbumin, Random (w Creat) 4 Months E11.9 - Type 2 diabetes mellitus without complications Comprehensive [place]. 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
[2023-05-23 07:49] VITALS: BP 120/68; BMI 27.3
== END 2023-05-23 08:14 | disposition home or self-care (01) ==
PROVIDERS: PCP Internal Medicine; Visit Provider Internal Medicine
DX: F32.0 Major depressive disorder, single episode, mild (principal); E11.65 Type 2 diabetes mellitus with hyperglycemia; I10 Essential (primary) hypertension; E78.00 Pure hypercholesterolemia, unspecified
CPT/HCPCS: 83036; 99214

== ENCOUNTER 2023-09-10 07:10 | Outpatient (REF) | payer OTHER, SELFPAY ==
[2023-09-10 08:33] LABS: Creatinine Urine 146.82 mg/dL; Microalbum/Creatinine Ratio Ur 23.8 ug/mg cr (<30)
[2023-09-10 08:36] LABS: Alanine Aminotransferase 12 U/L (0-40); Alkaline Phosphatase 69 U/L (39-117); Anion Gap 8 (12-20); Aspartate Amino Transferase 18 U/L (5-37); Bilirubin Total 0.5 mg/dL (0.0-1.0); Blood Urea Nitrogen 16 mg/dL (9-16); Calcium 9.2 mg/dL (8.4-10.2); Carbon Dioxide 29 mmol/L (22-29); Chloride 105 mmol/L (96-108); Cholesterol 167 mg/dL (<200); Estimated Glomerular Filt Rate > 60; Glucose Fasting 142 mg/dL (60-99); HDL Cholesterol 41 mg/dL (>40); LDL Cholesterol Calculated 102 mg/dL (<100); Potassium 4.3 mmol/L (3.3-5.1); Sodium 138 mmol/L (135-145); Total Protein 7.4 g/dL (6.5-8.0); Triglycerides 122 mg/dL (<150)
[2023-09-10 08:54] LABS: Vitamin D 25-OH Total 24.3 ng/mL (>30)
== END 2023-09-10 07:11 | disposition home or self-care (01) ==
LOC: HO.LAB 07:10
PROVIDERS: PCP Internal Medicine; Visit Provider Internal Medicine
DX: E55.9 Vitamin D deficiency, unspecified (principal); E78.5 Hyperlipidemia, unspecified; E11.65 Type 2 diabetes mellitus with hyperglycemia; E87.5 Hyperkalemia; E78.00 Pure hypercholesterolemia, unspecified; Z12.5 Encounter for screening for malignant neoplasm of prostate
CPT/HCPCS: 36415; 80053; 80061; 82043; 82306; 82570; 84153

== ENCOUNTER 2023-09-25 07:20 | Outpatient (AMB) | payer OTHER, SELFPAY ==
[2023-09-25 07:37] VITALS: BP 112/70; BMI 26.3
--- NOTE | 2023-09-25 07:37 | MHC.PC.OV ---
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 Accompanied by: Self / Same As Patient Allergies No Known Allergies Allergy (Verified 09/25/23 07:48) Medication List - Last Reconciled 09/25/23 by Sylvia Peters MD acetaminophen 500 mg PO Q6H PRN 30 days amlodipine 5 mg PO DAILY 90 days aspirin 81 mg PO DAILY atorvastatin 40 mg PO DAILY 90 days baclofen 5 mg PO BEDTIME 90 days cane As directed carvedilol 12.5 mg PO BID 90 days cholecalciferol (vitamin D3) 25 mcg PO DAILY 90 days dulaglutide (Trulicity) 4.5 mg (0.5 mL) subcut QWEEK 90 days fluocinolone acetonide oil 0.01% (DermOtic Oil) 5 drps otic (ears) BID 7 days fluoxetine 10 mg PO DAILY 90 days meloxicam 15 mg PO DAILY 90 days metformin 1,000 mg PO BID 90 days pioglitazone 45 mg PO DAILY 90 days trazodone 50 mg PO BEDTIME PRN 90 days Tobacco use date assessed: 09/25/23 Dental Screening Dental Screen Date: 09/25/23 Did you have a dental visit in the last 12 months?: Yes Did you have a dental problem in the last 6 months where you did not have access to dental care?: No Was dental information given to patient?: Patient has dentist HPI HPI Comments History of Present Illness Details This is a 63-year-old male with mild major depression, pure hypercholesterolemia, diabetes mellitus type 2 and hypertension that comes today for follow-up on his conditions. Depression has markedly improved with SSRIs. LDL not on goal and I will increase statin from 40 mg to 80 mg. A1c within goal. And blood pressure stable. Denies any chest pain or shortness of breath. No acute complaints. Compliant with medication. [facility] Medical History Skin lesion DISH (diffuse idiopathic skeletal hyperostosis) Mild major depression, single episode Hypovitaminosis D Thoracic spine pain Lumbar pain Right knee pain Left knee pain Neck pain Polyarthralgia Fatigue Pure hypercholesterolemia with target low density lipoprotein (LDL) cholesterol less than 70 mg/dL Insomnia CAD (coronary artery disease) Essential hypertension Diabetes mellitus Surgical History S/P CABG x 3 Family History Father Diabetes Hypertension CVD (cardiovascular disease) COPD (chronic obstructive pulmonary disease) Mother Diabetes Hypertension CVD (cardiovascular disease) Family/Other Mental health disorder Sister Breast cancer Social History Housing: Apartment Alcohol intake: current Alcohol intake frequency: a few times a month Alcohol type: beer Patient Tobacco Use Status: Never used Tobacco e-Cigarette/Vaping Use: Never Used Second Hand Smoke Exposure: No service: No Current occupational status: disabled Cognitive needs: No Hearing needs: No Vision needs: Yes Questionnaire PHQ-9 Over the last 2 weeks, how often have you been bothered by any of the following problems? 1. Little interest or pleasure in doing things: not at all 2. Feeling down, depressed, or hopeless: several days 3. Trouble falling or staying asleep, or sleeping too much: nearly every day 4. Feeling tired or having little energy: several days 5. Poor appetite or overeating: not at all 6. Feeling bad about yourself - or that you are a failure or have let yourself or your family down: not at all 7. Trouble concentrating on things, such as reading the newspaper or watching television: not at all 8. Moving or speaking so slowly that other people could have noticed. Or the opposite - being so fidgety or restless that you have been moving around a lot more than usual: not at all 9. Thoughts that you would be better off or of hurting yourself in some way: not at all Total score: 5 Depression Screening Interpretation: Negative Depression Screening Done: Yes 18675 - PHQ-9 Billing: Yes Source: Developed by Drs. David Murillo, Mahi Kunz, Baldomero Magana and colleagues, with an educational tammy from [employer]. Thrive Questionnaire Date Thrive assessed: 09/25/23 I am a: Patient What is your living situation today?: I have a steady place to live Within the past 12 months, did the food you bought not last and you didn't have the money to get more?: Never true Within the past 12 months, did you worry whether your food would run out before you got money to buy more?: Never true Do you have trouble paying for medicines?: No Do you have trouble getting transportation to medical appointments?: No Do you have trouble paying your heating and electricity bill?: No Do you have trouble taking care of your child, family member or friend?: No Do you have trouble with day-to-day activities such as bathing, preparing meals, shopping, managing finances, etc.?: No Are you currently unemployed and looking for a job?: No Are you interested in more education?: No Please select the resources that you would like help with: None Currently or been in a relationship where the following occur: no concerns reported THRIVE Score: 0 AUDIT C Alcohol Use Questionnaire (AUDIT-C) 1. How often do you have a drink containing alcohol?: Monthly or less 2. How many drinks containing alcohol do you have on a typical day when you are drinking?: 1 or 2 3. How often do you have six or more drinks on one occasion?: Never Total Score: 1 Score Reviewed/Action Taken: No CHANTE-7 AMB Questionnaire CHANTE-7 Date CHANTE - 7 assessed: 09/25/23 Feeling nervous, anxious, or on edge: 1 = Several days Not being able to stop or control worryin = Not at all Worrying too much about different things: 0 = Not at all Trouble relaxin = Not at all Being so restless that it is hard to sit still: 0 = Not at all Becoming easily annoyed or irritable: 0 = Not at all Feeling afraid as if something awful might happen: 0 = Not at all Total CHANTE-7 score (0-4 normal; 5-9 mild; 10-14 moderate; 15-21 severe): 1 Source: Developed by Drs. David Murillo, Mahi Kunz, Baldomero Magana and colleagues, with an educational tammy from [employer]. CHANTE-7 Assessment Billing CHANTE-7 Assessment Tool: CHANTE-7 Assessment 06672 Review of Systems Const All systems reviewed & are unremarkable except as noted in HPI and below Card Denies chest pain at rest, Denies chest pain with activity, Denies edema, Denies irregular heart rhythm, Denies claudication, Denies dyspnea, Denies dyspnea on exertion, Denies orthopnea, Denies paroxysmal nocturnal dyspnea and Denies slow heart rate Resp Denies cough, Denies dyspnea and Denies dyspnea on exertion GI Denies abdominal pain, Denies change in bowel habits, Denies excessive flatus, Denies nausea and Denies vomiting Denies urinary hesitancy, Denies urinary incontinence and Denies urinary urgency Physical exam (Primary Care) Vital Signs: Last Vital Signs BP 112/70 09/25/23 07:37 BMI result Body Mass Index 26.3 Tobacco/Smoking Status: Tobacco use Status Tobacco use date assessed 09/25/23 09/25/23 07:39 Patient Tobacco Use Status Never used Tobacco 09/25/23 07:39 e-Cigarette/Vaping Use Never Used 09/25/23 07:39 PHQ-9: PHQ-9 Score PHQ-9: Total score 5 09/25/23 07:53 Depression Screening Interpretation: Negative Thrive Assessment: Date of Thrive Assessment Date Thrive assessed 09/25/23 09/25/23 07:43 Currently or been in a relationship where the following occur: no concerns reported Resp Effort & Inspection: normal respiratory effort Auscultation: clear to auscultation bilaterally Cardio Jugular venous distension: no JVD Rate: regular rate Rhythm: regular rhythm Heart sounds: S1 normal heart sound present and S2 normal heart sound present Extrem General: Yes full ROM Psych Appearance: grossly normal Results AMB Hemoglobin A1c AMB Hemoglobin A1c 6.2 % Last Edit by SILVIO Knight on 09/25/23 07:44 Results Reviewed Results Reviewed: Laboratory Last Values Hgb A1c (Clinic) 6.2 % (4.0-6.0) H 09/25/23 07:33 Assessment and Plan Assessment & Plan (1) Mild major depression, single episode: Code(s): F32.0 - Major depressive disorder, single episode, mild Plan: Continue SSRIs. (2) Pure hypercholesterolemia with target low density lipoprotein (LDL) cholesterol less than 70 mg/dL: Code(s): E78.00 - Pure hypercholesterolemia, unspecified Plan: Increase atorvastatin from 40 mg to 80 mg. LDL goal is less than 70. (3) Diabetes mellitus: Code(s): E11.9 - Type 2 diabetes mellitus without complications Qualifiers: Diabetes mellitus type: type 2 Diabetes mellitus longterm insulin use: without longterm use Diabetes mellitus complication status: with hyperglycemia Qualified Code(s): E11.65 - Type 2 diabetes mellitus with hyperglycemia Plan: Continue metformin, Trulicity and Actos. A1c goal is equal or less than 7%. (4) Essential hypertension: Code(s): I10 - Essential (primary) hypertension Plan: Continue amlodipine. Blood pressure goal is equal or less than 130/80. Orders: Orders AMB Hemoglobin A1c Today E11.65 - Type 2 diabetes mellitus with hyperglycemia Microalbumin, Random (w Creat) 4 Months E11.9 - Type 2 diabetes mellitus without complications Comprehensive [place]. Panel Fast 4 Months E11.65 - Type 2 diabetes mellitus with hyperglycemia Vitamin D 25-OH Total 4 Months E55.9 - Vitamin D deficiency, unspecified Lipid Panel 4 Months E78.5 - Hyperlipidemia, unspecified Medications: New atorvastatin 80 mg PO BEDTIME 90 tabs 1RF 90 days Refilled cholecalciferol (vitamin D3) 25 mcg PO DAILY 90 caps 1RF 90 days Discontinued atorvastatin Discontinued Reason: Patient Completed Course 40 mg PO DAILY 90 days 90 tabs 3RF Coding Level of Care Code Est Pt Level 4 (35879) Diagnoses Mild major depression, single episode F32.0 Pure hypercholesterolemia with target low density lipoprotein (LDL) cholesterol less than 70 mg/dL E78.00 Type 2 diabetes mellitus with hyperglycemia, without long-term current use of insulin E11.65 Diabetes mellitus type: type 2 Diabetes mellitus termite control representative insulin use: without longterm use Diabetes mellitus complication status: with hyperglycemia Essential hypertension I10 Additional Codes CHANTE-7 Assessment Billing - CHANTE-7 Assessment Tool: CHANTE-7 Assessment [id number] ([id number]) Time Spent (min) 23
== END 2023-09-25 07:56 | disposition home or self-care (01) ==
PROVIDERS: PCP Internal Medicine; Visit Provider Internal Medicine
DX: F32.0 Major depressive disorder, single episode, mild (principal); E78.00 Pure hypercholesterolemia, unspecified; E11.65 Type 2 diabetes mellitus with hyperglycemia; I10 Essential (primary) hypertension
CPT/HCPCS: 83036; 99214

== ENCOUNTER 2024-01-16 06:44 | Outpatient (REF) | payer OTHER, SELFPAY ==
[2024-01-16 07:49] LABS: Alanine Aminotransferase 15 U/L (0-40); Albumin Level 4.3 g/dL (3.5-5.0); Alkaline Phosphatase 87 U/L (39-117); Anion Gap 10 (12-20); Aspartate Amino Transferase 19 U/L (5-37); Bilirubin Total 0.6 mg/dL (0.0-1.0); Blood Urea Nitrogen 16 mg/dL (9-16); Calcium 9.4 mg/dL (8.4-10.2); Carbon Dioxide 31 mmol/L (22-29); Chloride 103 mmol/L (96-108); Cholesterol 103 mg/dL (<200); Estimated Glomerular Filt Rate > 60; Glucose Fasting 162 mg/dL (60-99); HDL Cholesterol 42 mg/dL (>40); LDL Cholesterol Calculated 40 mg/dL (<100); Potassium 5.1 mmol/L (3.3-5.1); Sodium 139 mmol/L (135-145); Total Protein 7.6 g/dL (6.5-8.0); Triglycerides 108 mg/dL (<150)
[2024-01-16 08:04] LABS: Vitamin D 25-OH Total 30.8 ng/mL (>30)
[2024-01-16 09:00] LABS: Microalbum/Creatinine Ratio Ur 22.3 ug/mg cr (<30)
== END 2024-01-16 06:45 | disposition home or self-care (01) ==
LOC: HO.LAB 06:44
PROVIDERS: PCP Internal Medicine; Visit Provider Internal Medicine
DX: E11.65 Type 2 diabetes mellitus with hyperglycemia (principal); E55.9 Vitamin D deficiency, unspecified; E78.5 Hyperlipidemia, unspecified
CPT/HCPCS: 36415; 80053; 80061; 82043; 82306; 82570

== ENCOUNTER 2024-01-21 07:57 | Outpatient (AMB) | payer OTHER, SELFPAY ==
[2024-01-21 08:06] VITALS: BP 132/64; BMI 28.0
--- NOTE | 2024-01-21 08:06 | A.OFFPC_ITS ---
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 Accompanied by: Self / Same As Patient Allergies No Known Allergies Allergy (Verified 01/21/24 08:24) Medication List - Last Reconciled 01/21/24 by Sylvia Peters MD acetaminophen 500 mg PO Q6H PRN 30 days amlodipine 5 mg PO DAILY 90 days aspirin 81 mg PO DAILY atorvastatin 80 mg PO BEDTIME 90 days baclofen 5 mg PO BEDTIME 90 days cane As directed carvedilol 12.5 mg PO BID 90 days cholecalciferol (vitamin D3) 25 mcg PO DAILY 90 days dulaglutide (Trulicity) 4.5 mg (0.5 mL) subcut QWEEK 90 days empagliflozin (Jardiance) 10 mg PO DAILY 90 days fluocinolone acetonide oil 0.01% (DermOtic Oil) 5 drps otic (ears) BID 7 days fluoxetine 10 mg PO DAILY 90 days meloxicam 15 mg PO DAILY 90 days metformin 1,000 mg PO BID 90 days pioglitazone 45 mg PO DAILY 90 days prednisone mg PO trazodone 50 mg PO BEDTIME PRN 90 days Tobacco use date assessed: 09/25/23 Dental Screening Dental Screen Date: 09/25/23 HPI HPI Comments History of Present Illness Details This is a 63-year-old male with diabetes mellitus type 2, mild major depression and seronegative rheumatoid arthritis that comes for his physical exam. A1c elevated and he has been out of Trulicity 4 months. I will increase Jardiance and add Mounjaro. Depression stable with SSRIs. Rheumatoid arthritis follow by Rheumatology and currently is on prednisone for it. Last colonoscopy was about 3 years ago at [facility] and as per patient needed to be repeated 5 years after. No chest pain or shortness on breath. [facility] Medical History (Updated 01/21/24 @ 10:41 by Sylvia Peters MD) Skin lesion DISH (diffuse idiopathic skeletal hyperostosis) Mild major depression, single episode Hypovitaminosis D Thoracic spine pain Lumbar pain Right knee pain Left knee pain Neck pain Polyarthralgia Fatigue Pure hypercholesterolemia with target low density lipoprotein (LDL) cholesterol less than 70 mg/dL Insomnia CAD (coronary artery disease) Essential hypertension Diabetes mellitus Surgical History (Updated 01/21/24 @ 08:28 by Sylvia Peters MD) S/P colonoscopic polypectomy S/P CABG x 3 Family History (Updated 01/21/24 @ 08:29 by Sylvia Peters MD) Father Diabetes Hypertension CVD (cardiovascular disease) COPD (chronic obstructive pulmonary disease) Mother Diabetes Hypertension CVD (cardiovascular disease) Cancer Family/Other Mental health disorder Sister Breast cancer Social History Housing: Apartment Alcohol intake: current Alcohol intake frequency: a few times a month Alcohol type: beer Patient Tobacco Use Status: Never used Tobacco e-Cigarette/Vaping Use: Never Used Second Hand Smoke Exposure: No service: No Current occupational status: disabled Cognitive needs: No Hearing needs: No Vision needs: Yes Questionnaire Thrive Questionnaire Date Thrive assessed: 09/25/23 CHANTE-7 AMB Questionnaire CHANTE-7 Date CHANTE - 7 assessed: 09/25/23 Source: Developed by Drs. David Murillo, Mahi Kunz, Baldomero Magana and colleagues, with an educational tammy from [email or web address]. Review of Systems Const All systems reviewed & are unremarkable except as noted in HPI and below Card Denies chest pain at rest, Denies chest pain with activity, Denies edema, Denies irregular heart rhythm, Denies claudication, Denies dyspnea, Denies dyspnea on exertion, Denies orthopnea, Denies paroxysmal nocturnal dyspnea and Denies slow heart rate Resp Denies cough, Denies dyspnea and Denies dyspnea on exertion GI Denies abdominal pain, Denies change in bowel habits, Denies excessive flatus, Denies nausea and Denies vomiting Denies urinary hesitancy, Denies urinary incontinence and Denies urinary urgency Musc Denies abnormal gait, Denies atrophy, Denies deformity and Denies limited range of motion Skin/Breast Denies bleeding lesions, Denies changing lesions and Denies rash Neuro Denies abnormal gait, Denies behavioral changes and Denies lack of coordination Psych Denies behavioral changes Physical exam (Primary Care) Vital Signs: Last Vital Signs BP 132/64 01/21/24 08:06 BMI result Body Mass Index 28.0 Tobacco/Smoking Status: Tobacco use Status Tobacco use date assessed 09/25/23 01/21/24 08:09 Patient Tobacco Use Status Never used Tobacco 01/21/24 08:09 e-Cigarette/Vaping Use Never Used 01/21/24 08:09 Thrive Assessment: Date of Thrive Assessment Date Thrive assessed 09/25/23 01/21/24 08:09 HENKS Head: Yes normal to inspection, Yes normocephalic and Yes atraumatic Ears: external ears normal Eyes General: appearance normal, both eyes and all related structures Eyelids: Yes eyelids normal Conjunctivae: conjunctivae normal Neck Neck: Yes normal visual inspection and Yes supple Resp Effort & Inspection: normal respiratory effort Auscultation: clear to auscultation bilaterally Cardio Jugular venous distension: no JVD Rate: regular rate Rhythm: regular rhythm Heart sounds: S1 normal heart sound present and S2 normal heart sound present GI Inspection: Yes normal to inspection Palpation (GI): Soft to palpation and nontender Auscultation: normal bowel sounds Skin General skin exam: no rashes or lesions noted Neuro General: no focal motor deficits Extrem General: Yes full ROM Psych Appearance: grossly normal Results AMB Hemoglobin A1c AMB Hemoglobin A1c 8.8 % Last Edit by SILVIO Knight on 01/21/24 08:1 2 Results Reviewed Results Reviewed: Laboratory Last Values Hgb A1c (Clinic) 8.8 % (4.0-6.0) H 01/21/24 08:09 Assessment and Plan Assessment & Plan (1) Physical exam: Code(s): Z00.00 - Encounter for general adult medical examination without abnormal findings Plan: Repeat in a year. (2) Mild major depression, single episode: Code(s): F32.0 - Major depressive disorder, single episode, mild Plan: Continue SSRIs. (3) Diabetes mellitus: Code(s): E11.9 - Type 2 diabetes mellitus without complications Qualifiers: Diabetes mellitus type: type 2 Diabetes mellitus penitentiary insulin use: without terminal press operator use Diabetes mellitus complication status: with hyperglycemia Qualified Code(s): E11.65 - Type 2 diabetes mellitus with hyperglycemia Plan: Continue metformin and Actos. Increase Jardiance. Start Mounjaro. Discontinue Trulicity. A1c goal is equal or less than 7%. Followed yearly diabetic eye exam. (4) Seronegative rheumatoid arthritis: Code(s): M06.00 - Rheumatoid arthritis without rheumatoid factor, unspecified site Plan: Continue prednisone. Follow-up with rheumatology. Orders: Orders Comprehensive [place]. Panel Fast 4 Months E11.65 - Type 2 diabetes mellitus with hyperglycemia Vitamin D 25-OH Total 4 Months E55.9 - Vitamin D deficiency, unspecified AMB Hemoglobin A1c Today E11.65 - Type 2 diabetes mellitus with hyperglycemia Lipid Panel 4 Months E11.65 - Type 2 diabetes mellitus with hyperglycemia, E78.5 - Hyperlipidemia, unspecified Microalbumin, Random (w Creat) 4 Months E11.65 - Type 2 diabetes mellitus with hyperglycemia, E11.9 - Type 2 diabetes mellitus without complications Medications: New empagliflozin (Jardiance) 25 mg PO DAILY 90 tabs 1RF 90 days tirzepatide (Mounjaro) 2.5 mg (0.5 mL) subcut QWEEK 2 mL 0RF 4 weeks E11.65 - Type 2 diabetes mellitus with hyperglycemia Discontinued dulaglutide (Trulicity) Discontinued Reason: No Longer Medically Relevant 4.5 mg (0.5 mL) subcut QWEEK 90 days 6.5 mL 1RF E11.9 - Type 2 diabetes mellitus without complications empagliflozin (Jardiance) Discontinued Reason: Patient Completed Course 10 mg PO DAILY 90 days 90 tabs 0RF Coding Level of Care Code Est Pt Prev Care 40-64y(78774) Diagnoses Physical exam Z00.00 Mild major depression, single episode F32.0 Type 2 diabetes mellitus with hyperglycemia, without long-term current use of insulin E11.65 Diabetes mellitus type: type 2 Diabetes mellitus terminal press operator insulin use: without terminal press operator use Diabetes mellitus complication status: with hyperglycemia Seronegative rheumatoid arthritis M06.00 Time Spent (min) 32
== END 2024-01-21 08:37 | disposition home or self-care (01) ==
PROVIDERS: PCP Internal Medicine; Visit Provider Internal Medicine
DX: Z00.00 Encounter for general adult medical examination without abnormal findings (principal); F32.0 Major depressive disorder, single episode, mild; E11.65 Type 2 diabetes mellitus with hyperglycemia; M06.00 Rheumatoid arthritis without rheumatoid factor, unspecified site
CPT/HCPCS: 83036; 99396

== ENCOUNTER 2024-05-21 12:14 | Outpatient (AMB) | payer OTHER, SELFPAY ==
[2024-05-21 12:53] VITALS: BP 120/58; PULSE 77; O2SAT 97; BMI 27.1
--- NOTE | 2024-05-21 12:53 | MHC.OFFVIS ---
Vital Signs 05/21/24 12:53 Height 5 ft 5 in Weight 162 lb 14.746 oz BMI 27.1 BP 120/58 L Blood Pressure Location Lt brachial Position Sitting Pulse 77 Pulse Source Pulse Oximeter Pulse Oximetry (%) 97 Oxygen Delivery Method Room Air Intake Visit Reasons: RA Intake Note: Patient presents for follow up on RA today. Patient would like refill , prednisone and Baclofen. Allergies No Known Allergies Allergy (Verified 05/21/24 12:59) HPI HPI RA: Details: He continues to have joint pain. He at this time does not have any back pain. When he does have back pain he uses baclofen. He continues to have swelling in his hands. Right 4th and 5th finger triggering. He had cortisone injections in his right hand to treat 3 trigger fingers a year and a half ago with benefit. He has not started on DMARD therapy. He did not follow-up with a provider at [facility] last couple of months. [facility] Medical History (Updated 05/21/24 @ 13:47 by Don Oliver MD) Skin lesion DISH (diffuse idiopathic skeletal hyperostosis) Mild major depression, single episode Hypovitaminosis D Thoracic spine pain Lumbar pain Right knee pain Left knee pain Neck pain Polyarthralgia Fatigue Pure hypercholesterolemia with target low density lipoprotein (LDL) cholesterol less than 70 mg/dL Insomnia CAD (coronary artery disease) Essential hypertension Diabetes mellitus Surgical History (Updated 01/21/24 @ 08:28 by Sylvia Peters MD) S/P colonoscopic polypectomy S/P CABG x 3 Family History (Updated 01/21/24 @ 08:29 by Sylvia Peters MD) Father Diabetes Hypertension CVD (cardiovascular disease) COPD (chronic obstructive pulmonary disease) Mother Diabetes Hypertension CVD (cardiovascular disease) Cancer Family/Other Mental health disorder Sister Breast cancer Social History Housing: Apartment Alcohol intake: current Alcohol intake frequency: a few times a month Alcohol type: beer Patient Tobacco Use Status: Never used Tobacco e-Cigarette/Vaping Use: Never Used Second Hand Smoke Exposure: No service: No Current occupational status: disabled Cognitive needs: No Hearing needs: No Vision needs: Yes Review of Systems Const All systems reviewed & are unremarkable except as noted in HPI and below Physical Exam Vital Signs: Last Vital Signs Pulse 77 05/21/24 12:53 BP 120/58 L 05/21/24 12:53 Pulse Ox 97 05/21/24 12:53 Oxygen Delivery Method Room Air 05/21/24 12:53 BMI result Body Mass Index 27.1 Const Other: General: Comfortable CVS: RRR Respiratory: clear to auscultation bilaterally. Good respiratory effort Skin: No lesions seen MSK: Tender to palpate bilateral 4th and 5th PIP knees with synovitis present. Triggering of right 4th and 5th finger observed. Tenderness to palpate palmar aspect of right 4th and 5th MCP with nodule palpated right 5th palmar MCP. Good range of motion of upper extremities and lower extremities. MTP tenderness found. Office Procedures AMB Joint Injection/Aspiration Joint Injection/Aspiration Details: 4th finger Primary Site: right trigger finger Prep: site was prepped using aseptic technique Injected: 10 mg of, Kenalog, with 0.25 mL of and 1% plain lidocaine Procedure: The patient tolerated the procedure well Coding Additional procedure code (CPT) needed (07098 two procedures modifier needed) AMB Joint Injection/Aspiration Joint Injection/Aspiration Details: Right 5th trigger finger Prep: site was prepped using aseptic technique Injected: 10 mg of, Kenalog and 1% plain lidocaine Procedure: The patient tolerated the procedure well Coding Additional procedure code (CPT) needed (38277 2 procedures modifier needed) Office Meds Kenalog 40 mg/mL suspension for injection Performing Provider: Don Oliver MD Performing Location: [facility] Administered by: Don Oliver MD on 05/21/24 13:43 Dose Route Admin Location Dispensed Lot Number Expiration Date [facility] Character Actor 10 mg Tendon Sheath Inj. 1 mL AP [id number] [employer] lidocaine (PF) 10 mg/mL (1 %) injection solution Performing Provider: Don Oliver MD Performing Location: [facility] Administered by: Don Oliver MD on 05/21/24 13:43 Dose Route Admin Location Dispensed Lot Number Expiration Date [facility] Character Actor 2.5 mg Infiltration 2 mL [id number] [employer] Kenalog 40 mg/mL suspension for injection Performing Provider: Don Oliver MD Performing Location: [facility] Administered by: Don Oliver MD on 05/21/24 13:43 Dose Route Admin Location Dispensed Lot Number Expiration Date [facility] Character Actor 10 mg Tendon Sheath Inj. 1 mL AP [id number] [employer] lidocaine (PF) 10 mg/mL (1 %) injection solution Performing Provider: Don Oliver MD Performing Location: [facility] Administered by: Don Oliver MD on 05/21/24 13:43 Dose Route Admin Location Dispensed Lot Number Expiration Date [facility] Character Actor 2.5 mg Infiltration 2 mL [id number] [facility] Quality Reporting (2019) Adult ([facility] 138/07/25/68) Smoking risk assessment performed?: Yes Patient Tobacco Use Status: Never used Tobacco Assessment & Plan Assessment & Plan (1) Rheumatoid arthritis: Comment: Inflammatory arthritis is better controlled this visit status post prednisone course a few months ago. He continues to have polyarthralgias, stiffness and synovitis on exam. Workup for inflammatory arthritis was initiated at [facility]. I do not have any records. Code(s): M06.9 - Rheumatoid arthritis, unspecified Category: Medical Qualifiers: Rheumatoid arthritis location: unspecified site Rheumatoid factor presence: unspecified presence Qualified Code(s): M06.9 - Rheumatoid arthritis, unspecified Plan: Requesting records from [facility] for disease monitoring and baseline prior to initiating DMARD therapy ordered Return to clinic in 1 month (2) Trigger finger: Comment: Right 4th and 5th finger Code(s): M65.30 - Trigger finger, unspecified finger Category: Medical Qualifiers: Laterality: right Trigger finger location: unspecified finger Qualified Code(s): M65.30 - Trigger finger, unspecified finger Plan: Cortisone injections to treat right and 4th trigger finger given this visit Return to clinic in 3 months Orders: Orders Erythrocyte Sedimentation Rate Today M06.9 - Rheumatoid arthritis, unspecified C Reactive Protein Today M06.9 - Rheumatoid arthritis, unspecified Aspartate Amino Transferase Today Z79.60 - [facility] (current) use of unspecified immunomodulators and immunosuppressants Complete Blood Count Auto Diff Today Z79.60 - [facility] (current) use of unspecified immunomodulators and immunosuppressants Creatinine Today Z79.60 - terminal computer operator (current) use of unspecified immunomodulators and immunosuppressants AMB Joint Injection/Aspiration Today M65.30 - Trigger finger, unspecified finger Alanine Aminotransferase Today Z79.60 - terminal computer operator (current) use of unspecified immunomodulators and immunosuppressants Hepatitis B,C Profile Today M06.9 - Rheumatoid arthritis, unspecified T Spot TB Today M06.9 - Rheumatoid arthritis, unspecified Cyclic Citrullinated Peptide Today M06.9 - Rheumatoid arthritis, unspecified Rheumatoid Factor Today M06.9 - Rheumatoid arthritis, unspecified AMB Joint Injection/Aspiration Today M65.30 - Trigger finger, unspecified finger Coding Level of Care Code Est Pt Level 4 (41637) Complex EM visit Add On G2211 Diagnoses Rheumatoid arthritis, involving unspecified site, unspecified whether rheumatoid factor present M06.9 Rheumatoid arthritis location: unspecified site Rheumatoid factor presence: unspecified presence Trigger finger of right hand, unspecified finger M65.30 Laterality: right Trigger finger location: unspecified finger Comment 81429 trigger finger x2 cortisone injections given
== END 2024-05-21 13:40 | disposition home or self-care (01) ==
PROVIDERS: PCP Internal Medicine; Visit Provider Internal Medicine Rheumatology
DX: M06.9 Rheumatoid arthritis, unspecified (principal); M65.30 Trigger finger, unspecified finger
CPT/HCPCS: 99214; G2211

== ENCOUNTER → 2024-05-21 12:14 | Outpatient (BNVA) | payer OTHER, SELFPAY | PROVIDERS: PCP Internal Medicine; Visit Provider Internal Medicine Rheumatology | DX: M65.341 Trigger finger, right ring finger (principal); M65.351 Trigger finger, right little finger; M06.9 Rheumatoid arthritis, unspecified; Z79.60 Long term (current) use of unspecified immunomodulators and immunosuppressants | CPT/HCPCS: 20600; 99212; J2003; J3300 ==

== ENCOUNTER 2024-06-11 06:49 | Outpatient (REF) | payer OTHER, SELFPAY ==
[2024-06-11 07:06] LABS: MANUAL DIFF FLAG NO
[2024-06-11 07:34] LABS: Basophils Percent Auto 0.5 % (0-2); Eosinophils Absolute Auto 0.3 X10*3/uL (0.0-0.4); Eosinophils Percent Auto 3.6 % (0-4); Hematocrit 44.5 % (42.0-52.0); Hemoglobin 15.4 g/dl (14.0-18.0); Imm Gran Abs Auto 0.01 X10*3/uL (0.00-0.03); Imm Gran Pct Auto 0.1 % (0.0-0.4); Lymphocytes Percent Auto 26.6 % (20-40); Mean Corpuscular HGB Conc 34.6 g/dl (31.0-36.0); Mean Corpuscular Hemoglobin 32.5 pg (27.0-33.0); Mean Corpuscular Volume 93.9 fL (80.0-98.0); Mean Platelet Volume 9.5 fL (9.4-12.4); Monocytes Absolute Auto 0.7 X10*3/uL (0.1-1.2); Neutrophils Absolute Auto 4.5 x10*3/uL (2.0-8.3); Neutrophils Percent Auto 60.2 % (45-73); Platelet Count 206 X10*3/uL (160-400); Red Blood Count 4.74 X10*6/uL (4.60-5.80); Red Cell Distribution Width 12.1 % (11.0-16.0); White Blood Count 7.4 X10*3/uL (4.8-10.8)
[2024-06-11 07:48] LABS: Rheumatoid Factor < 13.0 IU/mL (<15.0)
[2024-06-11 07:58] LABS: Alanine Aminotransferase 18 U/L (0-40); Albumin Level 4.4 g/dL (3.5-5.0); Alkaline Phosphatase 72 U/L (39-117); Anion Gap 13 (12-20); Aspartate Amino Transferase 25 U/L (5-37); Bilirubin Total 0.7 mg/dL (0.0-1.0); Blood Urea Nitrogen 20 mg/dL (9-16); C Reactive Protein < 0.04 mg/dL (< or = 0.50); Carbon Dioxide 26 mmol/L (22-29); Chloride 105 mmol/L (96-108); Cholesterol 112 mg/dL (<200); Estimated Glomerular Filt Rate > 60; Glucose Fasting 150 mg/dL (60-99); HDL Cholesterol 43 mg/dL (>40); LDL Cholesterol Calculated 46 mg/dL (<100); Sodium 140 mmol/L (135-145); Total Protein 7.8 g/dL (6.5-8.0); Triglycerides 116 mg/dL (<150)
[2024-06-11 08:11] LABS: Erythrocyte Sedimentation Rate 6 MM/HR (0-15)
[2024-06-11 08:11] LABS: Creatinine Urine 124.25 mg/dL; Microalbum/Creatinine Ratio Ur 37.8 ug/mg cr (<30)
[2024-06-11 08:14] LABS: Vitamin D 25-OH Total 25.5 ng/mL (>30)
[2024-06-11 08:15] LABS: HBsAGNum1 0.37 S/CO (0.00-0.99); Hepatitis B Core Antibody Nonreactive (Nonreactive); Hepatitis B Surface Antigen Negative (Negative); ~Hepatitis B Surface Antibody NONREACTIVE (Nonreactive); ~Hepatitis C Antibody Nonreactive (Nonreactive)
[2024-06-13 20:43] LABS: TS Negative Control Passed; TS Panel A 0; TS Panel B 0; TS Positive Control Passed; TSpotTB Negative (Negative)
[2024-06-16 23:48] LABS: Cyclic Citrullinated Peptide <16 UNITS
== END 2024-06-11 06:50 | disposition home or self-care (01) ==
LOC: HO.LAB 06:49
PROVIDERS: Absent Provider Internal Medicine Rheumatology; PCP Internal Medicine; Visit Provider Internal Medicine
DX: E11.65 Type 2 diabetes mellitus with hyperglycemia (principal); E78.5 Hyperlipidemia, unspecified; E55.9 Vitamin D deficiency, unspecified; E11.9 Type 2 diabetes mellitus without complications; M06.9 Rheumatoid arthritis, unspecified; Z79.60 Long term (current) use of unspecified immunomodulators and immunosuppressants
CPT/HCPCS: 36415; 80053; 80061; 82043; 82306; 82570; 85025; 85652; 86140; 86200; 86431; 86481; 86704; 86706; 86803; 87340

== ENCOUNTER 2024-06-18 07:25 | Outpatient (AMB) | payer OTHER, SELFPAY ==
[2024-06-18 08:03] VITALS: BP 120/72; BMI 27.6
--- NOTE | 2024-06-18 08:03 | A.OFFPC_ITS ---
Vital Signs 06/18/24 08:03 Height 5 ft 5 in Weight 166 lb BMI 27.6 BP 120/72 Blood Pressure Location Lt brachial Position Sitting Intake Visit Reasons: dm Intake Note: Patient here for a follow up DM, c/o callus on right foot, head aches, memory loss Instrument Mechanics Supervisor Required: Yes Instrument Mechanics Supervisor Language: Book Solicitor Name: Sylvia Nelson MD Information Interpreted: non-clinical & clinical Accompanied by: Self / Same As Patient Allergies No Known Allergies Allergy (Verified 06/18/24 08:27) Medication List - Last Reconciled 06/18/24 by Sylvia Nelson MD acetaminophen 500 mg PO Q6H PRN 30 days amlodipine 5 mg PO DAILY 90 days aspirin 81 mg PO DAILY atorvastatin 80 mg PO BEDTIME 90 days baclofen 5 mg PO BEDTIME 90 days cane As directed carvedilol 12.5 mg PO BID 90 days cholecalciferol (vitamin D3) 25 mcg PO DAILY 90 days empagliflozin (Jardiance) 25 mg PO DAILY 90 days fluocinolone acetonide oil 0.01% (DermOtic Oil) 5 drps otic (ears) BID 7 days fluoxetine 10 mg PO DAILY 90 days meloxicam 15 mg PO DAILY 90 days metformin 1,000 mg PO BID 90 days pioglitazone 45 mg PO DAILY 90 days repaglinide 0.5 mg PO TID 30 days trazodone 50 mg PO BEDTIME PRN 90 days Tobacco use date assessed: 06/18/24 Dental Screening Dental Screen Date: 06/18/24 Did you have a dental visit in the last 12 months?: Yes Did you have a dental problem in the last 6 months where you did not have access to dental care?: No Was dental information given to patient?: Patient has dentist HPI HPI Comments History of Present Illness Details The patient is a 63-year-old male presenting with questions and management for Type 2 Diabetes Mellitus, hypertension, pure hypercholesterolemia, mild major depression and rheumatoid arthritis. His diabetes management includes several medications: Metformin, Pioglitazone, Repaglinide, and Empagliflozin. The patient mentioned a past issue with medication availability when he could not obtain his injections, leading to a switch in his regimen. His HbA1c is reported to be high, which prompted the cons ideration of endocrinology referrals. I will also add Trulicity. He did had a local steroid injection about a month ago that could affect blood glucose. His blood pressure is within goal and his LDL also within goal. The patient also has a diagnosis of rheumatoid arthritis, clinically managed by a command center officer. He mentioned past laboratory evaluations showing positive results indicative of rheumatoid arthritis. Medications reportedly used include Baclofen for muscle spasms and occasional Meloxicam. Current symptoms involve discomfort in the hands, with new indications of calluses on the foot, examined during this visit. The patient also mentions osteoarthritis specifically in one of his hands. For depression, the patient is on Fluoxetine with reported improvement in PHQ-9 scores, currently at 5. There were no recent episodes of chest pain or dyspnea associated with these conditions. He complains of a right foot callus between 4th and 5th toe that is bothering him and would like to see Podiatry. [facility] Medical History (Updated 06/18/24 @ 08:40 by Sylvia Nelson MD) Skin lesion DISH (diffuse idiopathic skeletal hyperostosis) Mild major depression, single episode Hypovitaminosis D Thoracic spine pain Lumbar pain Right knee pain Left knee pain Neck pain Polyarthralgia Fatigue Pure hypercholesterolemia with target low density lipoprotein (LDL) cholesterol less than 70 mg/dL Insomnia CAD (coronary artery disease) Essential hypertension Diabetes mellitus Surgical History S/P colonoscopic polypectomy S/P CABG x 3 Family History Father Diabetes Hypertension CVD (cardiovascular disease) COPD (chronic obstructive pulmonary disease) Mother Diabetes Hypertension CVD (cardiovascular disease) Cancer Family/Other Mental health disorder Sister Breast cancer Social History Housing: Apartment Alcohol intake: current Alcohol intake frequency: a few times a month Alcohol type: beer Patient Tobacco Use Status: Never used Tobacco e-Cigarette/Vaping Use: Never Used Second Hand Smoke Exposure: No service: No Current occupational status: disabled Cognitive needs: No Hearing needs: No Vision needs: Yes Questionnaire PHQ-9 Over the last 2 weeks, how often have you been bothered by any of the following problems? 1. Little interest or pleasure in doing things: not at all 2. Feeling down, depressed, or hopeless: several days 3. Trouble falling or staying asleep, or sleeping too much: nearly every day 4. Feeling tired or having little energy: several days 5. Poor appetite or overeating: not at all 6. Feeling bad about yourself - or that you are a failure or have let yourself or your family down: not at all 7. Trouble concentrating on things, such as reading the newspaper or watching television: not at all 8. Moving or speaking so slowly that other people could have noticed. Or the opposite - being so fidgety or restless that you have been moving around a lot more than usual: not at all 9. Thoughts that you would be better off or of hurting yourself in some way: not at all Total score: 5 Depression Screening Interpretation: Positive Depression Screening Follow-up: Existing condition and Follow-up Visit Requested Depression Screening Done: Yes 02371 - PHQ-9 Billing: Yes Source: Developed by Drs. David Murillo, Mahi Kunz, Baldomero Magana and colleagues, with an educational tammy from [employer]. Thrive Questionnaire Date Thrive assessed: 06/18/24 I am a: Patient What is your living situation today?: I have a steady place to live Within the past 12 months, did the food you bought not last and you didn't have the money to get more?: Never true Within the past 12 months, did you worry whether your food would run out before you got money to buy more?: Never true Do you have trouble paying for medicines?: No Do you have trouble getting transportation to medical appointments?: No Do you have trouble paying your heating and electricity bill?: No Do you have trouble taking care of your child, family member or friend?: No Do you have trouble with day-to-day activities such as bathing, preparing meals, shopping, managing finances, etc.?: No Are you currently unemployed and looking for a job?: No Are you interested in more education?: No Please select the resources that you would like help with: None Currently or been in a relationship where the following occur: No concerns reported THRIVE Score: 0 AUDIT C Alcohol Use Questionnaire (AUDIT-C) 1. How often do you have a drink containing alcohol?: Monthly or less 2. How many drinks containing alcohol do you have on a typical day when you are drinking?: 1 or 2 3. How often do you have six or more drinks on one occasion?: Never Total Score: 1 Score Reviewed/Action Taken: No CHANTE-7 AMB Questionnaire CHANTE-7 Date CHANTE - 7 assessed: 06/18/24 Feeling nervous, anxious, or on edge: 1 = Several days Not being able to stop or control worryin = Not at all Worrying too much about different things: 0 = Not at all Trouble relaxin = Not at all Being so restless that it is hard to sit still: 0 = Not at all Becoming easily annoyed or irritable: 0 = Not at all Feeling afraid as if something awful might happen: 0 = Not at all Total CHANTE-7 score (0-4 normal; 5-9 mild; 10-14 moderate; 15-21 severe): 1 Source: Developed by Drs. David Murillo, Mahi Kunz, Baldomero vallecillo nd colleagues, with an educational tammy from [employer]. CHANTE-7 Assessment Billing CHANTE-7 Assessment Tool: CHANTE-7 Assessment 10681 Review of Systems Const All systems reviewed & are unremarkable except as noted in HPI and below Card Denies chest pain at rest, Denies chest pain with activity, Denies edema, Denies irregular heart rhythm, Denies claudication, Denies dyspnea, Denies dyspnea on exertion, Denies orthopnea, Denies paroxysmal nocturnal dyspnea and Denies slow heart rate Resp Denies cough, Denies dyspnea and Denies dyspnea on exertion GI Denies abdominal pain, Denies change in bowel habits, Denies excessive flatus, Denies nausea and Denies vomiting Musc Reports arthralgias Psych Reports depression Physical exam (Primary Care) Vital Signs: Last Vital Signs BP 120/72 06/18/24 08:03 BMI result Body Mass Index 27.6 Tobacco/Smoking Status: Tobacco use Status Tobacco use date assessed 06/18/24 06/18/24 08:08 Patient Tobacco Use Status Never used Tobacco 06/18/24 08:08 e-Cigarette/Vaping Use Never Used 06/18/24 08:08 PHQ-9: PHQ-9 Score PHQ-9: Total score 5 06/18/24 08:08 Depression Screening Interpretation: Positive Depression Screening Follow-up: Existing condition and Follow-up Visit Requested Thrive Assessment: Date of Thrive Assessment Date Thrive assessed 06/18/24 06/18/24 08:08 Currently or been in a relationship where the following occur: No concerns reported Resp Effort & Inspection: normal respiratory effort Auscultation: clear to auscultation bilaterally Cardio Jugular venous distension: no JVD Rate: regular rate Rhythm: regular rhythm Heart sounds: S1 normal heart sound present and S2 normal heart sound present Skin Other: Right foot callus between 4th and 5th toe Extrem General: Yes full ROM Office Procedures Flu Questionnaire Does the patient have a severe egg allergy?: No Results AMB Hemoglobin A1c AMB Hemoglobin A1c 8.6 % Last Edit by SILVIO Knight on 06/18/24 08:1 4 Immunizations Fluarix Triv 5914-9229 (PF) 45 mcg (15 mcg x 3)/0.5 mL IM syringe Performing Provider: Sylvia Nelson MD Per[facility] Documented (not given) by: SILVIO Knight on 06/18/24 08:09 Reason Not Given: Patient Refused Results Reviewed Results Reviewed: Laboratory Last Values Hgb A1c (Clinic) 8.6 % (4.0-6.0) H 06/18/24 08:08 Coding Level of Care Code Est Pt Level 4 (07625) Complex EM visit Add On G2211 Diagnoses Seronegative rheumatoid arthritis M06.00 Mild major depression, single episode F32.0 Pure hypercholesterolemia with target low density lipoprotein (LDL) cholesterol less than 70 mg/dL E78.00 Type 2 diabetes mellitus with hyperglycemia, without long-term current use of insulin E11.65 Diabetes mellitus type: type 2 Diabetes mellitus rodent exterminator insulin use: without group home use Diabetes mellitus complication status: with hyperglycemia Essential hypertension I10 Callus of foot L84 Additional Codes CHANTE-7 Assessment Billing - CHANTE-7 Assessment Tool: CHANTE-7 Assessment 38343 ([id number]) PHQ-9 - 65230 - PHQ-9 Billing: Yes ([id number]) Time Spent (min) 24 Assessment & Plan Assessment & Plan (1) Seronegative rheumatoid arthritis: Code(s): M06.00 - Rheumatoid arthritis without rheumatoid factor, unspecified site Category: Medical (2) Mild major depression, single episode: Code(s): F32.0 - Major depressive disorder, single episode, mild Category: Medical (3) Pure hypercholesterolemia with target low density lipoprotein (LDL) cholesterol less than 70 mg/dL: Code(s): E78.00 - Pure hypercholesterolemia, unspecified Category: Medical (4) Diabetes mellitus: Code(s): E11.9 - Type 2 diabetes mellitus without complications Category: Medical Qualifiers: Diabetes mellitus type: type 2 Diabetes mellitus rodent exterminator insulin use: without rodent exterminator use Diabetes mellitus complication status: with hyperglycemia Qualified Code(s): E11.65 - Type 2 diabetes mellitus with hyperglycemia (5) Essential hypertension: Code(s): I10 - Essential (primary) hypertension Category: Medical (6) Callus of foot: Code(s): L84 - Corns and callosities Category: Medical Plan - Refer patient to endocrinology for comprehensive diabetes management due to elevated HbA1c and complex medication regimen. - Continue current diabetes medications as listed: Metformin, Pioglitazone, Empagliflozin, and Repaglinide. - Schedule follow-up with a command center officer for ongoing rheumatoid arthritis management. - Recommend consultation with a private branch exchange repairer for evaluation and care of foot calluses. - Continue Fluoxetine for depression and monitor mental health status routinely. Patient was informed and verbally consented to the use of an ambient scribe for clinic note documentation during this visit. I reviewed the diabetes management plan with the patient, emphasizing the importance of optimal blood glucose control. Given the patient's elevated HbA1c, I discussed the referral to endocrinology to explore comprehensive care options. The discussion included potential benefits of improved glycemic control and possible adjustments to medication regimen. For arthritis, I advised maintaining follow-ups with a command center officer, emphasizing medication adherence and routine rheumatologic evaluations. We talked about the stability and improvement in depressive symptoms, highlighting continued use of Fluoxetine and mental health monitoring. The patient was informed about the plan to visit a private branch exchange repairer for the foot callus, ensuring no current signs of infection. Orders: Orders Influenza [id number] Immunization Today Z23 - Encounter for immunization AMB Hemoglobin A1c Today E11.65 - Type 2 diabetes mellitus with hyperglycemia Lipid Panel 4 Months E78.5 - Hyperlipidemia, unspecified Microalbumin, Random (w Creat) 4 Months R80.9 - Proteinuria, unspecified Vitamin D 25-OH Total 4 Months E55.9 - Vitamin D deficiency, unspecified Comprehensive [place]. Panel Fast 4 Months E11.65 - Type 2 diabetes mellitus with hyperglycemia Referrals Endocrinology Referral E11.65 - Type 2 diabetes mellitus with hyperglycemia Podiatry Referral L84 - Corns and callosities Medications: New dulaglutide (Trulicity) 0.75 mg (0.5 mL) subcut QWEEK 90 days 6.5 mL 1RF Refilled cholecalciferol (vitamin D3) 25 mcg PO DAILY 90 days 90 caps 1RF Patient Instructions: - Adhere to current diabetes medication regimen and monitor blood glucose levels regularly. - Follow up with endocrinology for diabetes management. - Maintain regular appointments with a command center officer. - Attend scheduled visit with a private branch exchange repairer for foot care. - Continue taking Fluoxetine as prescribed and monitor for changes in mood or symptoms. - Report any new or worsening symptoms to our clinic.
== END 2024-06-18 08:42 | disposition home or self-care (01) ==
PROVIDERS: PCP Internal Medicine; Visit Provider Internal Medicine
DX: M06.00 Rheumatoid arthritis without rheumatoid factor, unspecified site (principal); F32.0 Major depressive disorder, single episode, mild; E78.00 Pure hypercholesterolemia, unspecified; E11.65 Type 2 diabetes mellitus with hyperglycemia; I10 Essential (primary) hypertension; L84 Corns and callosities; Z23 Encounter for immunization

== ENCOUNTER → 2024-06-18 07:25 | Outpatient (BNVA) | payer OTHER, SELFPAY | PROVIDERS: PCP Internal Medicine; Visit Provider Internal Medicine | DX: E11.65 Type 2 diabetes mellitus with hyperglycemia (principal); M06.00 Rheumatoid arthritis without rheumatoid factor, unspecified site; F32.0 Major depressive disorder, single episode, mild; E78.00 Pure hypercholesterolemia, unspecified; I10 Essential (primary) hypertension; L84 Corns and callosities | CPT/HCPCS: 83036; 90471; 96127; 99212 ==

== ENCOUNTER → 2024-07-06 08:30 | Outpatient (BNVA) | payer OTHER, SELFPAY | PROVIDERS: PCP Internal Medicine; Visit Provider Physician Assistant | DX: E11.65 Type 2 diabetes mellitus with hyperglycemia (principal); E78.00 Pure hypercholesterolemia, unspecified; I10 Essential (primary) hypertension | CPT/HCPCS: 82947; 99202 ==

== ENCOUNTER 2024-07-24 08:05 | Outpatient (AMB) | payer OTHER, SELFPAY ==
--- OUTSIDE RECORDS SUMMARY | 2024-07-24 08:11 | XMS_ITS | Clinical Summary ---
Author Organization [facility] Facility Address [address] [place] [address] Care Team Providers Care Director Process Name Role Phone Sylvia Denny MD Primary Care Provider [phone] Allergies No known active allergies Medications Acetaminophen Extra Strength 500 MG tablet Take 1 tablet by mouth 1 (one) time each day if needed 06/25/2022 Active amLODIPine (NORVASC) 5 MG tablet Take 5 mg by mouth 1 (one) time each day 06/25/2022 Active Aspirin Low Dose 81 MG EC tablet Take 81 mg by mouth 1 (one) time each day 07/29/2022 Active atorvastatin (LIPITOR) 40 MG tablet Take 40 mg by mouth 1 (one) time each day 06/25/2022 Active Baclofen 5 MG tablet Take 1 tablet by mouth at night if needed 06/22/2022 Active carvedilol (COREG) 12.5 MG tablet Take 12.5 mg by mouth in the morning and 12.5 mg in the evening. 06/25/2022 Active D3-1000 25 MCG (1000 UT) capsule Take 1 capsule by mouth 1 (one) time each day 07/18/2022 Active Trulicity 1.5 MG/0.5ML solution pen-injector Inject 1.5 mL under the skin every 7 (seven) days 07/30/2022 Active pioglitazone (ACTOS) 45 MG tablet Take 45 mg by mouth 1 (one) time each day 06/02/2022 Active traZODone (DESYREL) 50 MG tablet Take 50 mg by mouth at night if needed 06/25/2022 Active metFORMIN (GLUCOPHAGE) 1000 MG tablet Take 1,000 mg by mouth in the morning and 1,000 mg in the evening. 06/25/2022 Active ergocalciferol 1.25 MG (18306 UT) capsule Take 50,000 Units by mouth 1 (one) time per week Active Active Problems Problem Noted Date Diagnosed Date Hypertension 08/19/2023 Dyslipidemia 08/19/2023 Diabetes mellitus, not otherwise specified 08/18 Atherosclerotic heart diseas e of [place] coronary artery without angina pectoris, not otherwise specified 08/19/2023 Chronic kidney disease, stage 2 (mild) Aortocoronary bypass graft present 08/19/2023 Proteinuria, not otherwise specified 08/13/2022 Family History Medical History Relation Comments COPD Father Diabetes Father Heart disease Father cardiovascular d isease Hypertension Father Diabetes Mother Heart disease Mother cardiovascular d isease Hypertension Mother Cancer Sister breast cancer Relation Status Comments Father Mother Sister Social History Tobacco Use Types Packs/Day Years Used Date Smoking Tobacco: Never Smokeless Tobacco: Never Tobacco Cessation:Counseling Given: Not Answered Alcohol Use Standard Drinks/Week Comments Yes 0 (1 standard drink = 0.6 oz pur e alcohol) beer Sex and Gender Information Value Date Recorded Sex Assigned at Not on file Legal Sex Male 3:28 PM EST Gender Identity Not on file Sexual Orientation Not on file Last Filed Vital Signs Vital Sign Reading Time Taken Comments Blood Pressure 136/60 10/01/2023 10:41 AM EDT Pulse 84 10/01/2023 10:41 AM EDT Temperature - - Respiratory Rate - - Oxygen Saturation 99% 10/01/2023 10: 41 AM EDT Inhaled Oxygen Concentration - - Weight 73.4 kg (161 lb 12.8 oz) 024 10:41 AM EDT Height 162.6 cm (5' 4 ) 10/01/2023 10:4 1 AM EDT Body Mass Index 27.77 10/01/2023 10:41 AM EDT Plan of Treatment Health Maintenance Due Date Last Done Comments Pneumococcal Vaccine: Pediat rics (0 to 5 Years) and At-Risk Patients (6 to 64 Years) (1 of 2 - PCV) 1966 Colorectal Cancer Screening: Annual FOBT 2009 Colorectal Cancer Screening: Colonoscopy 2009 Colorectal Cancer Screening: Sigmoidoscopy 2009 Diabetes: Hemoglobin A1C 08/19/2023 Diabetes: Ophthalmology Exam 08/19/2023 Diabetes: Pedal Pulse Checked 08/19/2023 Diabetes: Sensory Foot Exam 08/19/2023 Diabetes: Visual Foot Exam 08/19/2023 Influenza Vaccine (#1) 2024 Hepatitis B Vaccine Aged Out No longe r eligible based on patient's age to complete this topic Insurance Care Teams Director Process Relationship Specialty Start Date End Date Sylvia Denny MD [address] [place] [address] PCP - General Internal Medicine 05/29/22
[2024-07-24 08:34] VITALS: BP 128/62; PULSE 76; BMI 27.1
--- NOTE | 2024-07-24 08:34 | MHC.OFFVIS ---
Vital Signs 07/24/24 08:34 Height 5 ft 5 in Weight 162 lb 11.218 oz BMI 27.1 BP 128/62 Blood Pressure Location Rt brachial Position Sitting Pulse 76 Pulse Source Pulse Oximeter Intake Visit Reasons: T2DM Intake Note: Patient present today for Type 2 Diabetes Mellitus Last Diabetic eye exam: 06/2024 Last Podiatry Visit: Has upcoming appt Random Glucose:151 mg/dl HgA1C: 8.6% 06/18/24 Route Jumper Required: Yes Route Jumper Language: Skin Drier Services: Route Jumper Present Information Interpreted: non-clinical & clinical Accompanied by: Self / Same As Patient Allergies No Known Allergies Allergy (Verified 07/24/24 08:39) Medication List - Last Reconciled 07/24/24 by Ann-Marie Reza PA-C acetaminophen 500 mg PO Q6H PRN 30 days amlodipine 5 mg PO DAILY 90 days aspirin 81 mg PO DAILY atorvastatin 80 mg PO BEDTIME 90 days baclofen 5 mg PO BEDTIME 90 days blood-glucose sensor (OnShift Uriel 3 Plus Sensor device) Use daily As directed to monitor glucose cane As directed carvedilol 12.5 mg PO BID 90 days cholecalciferol (vitamin D3) 25 mcg PO DAILY 90 days empagliflozin (Jardiance) 25 mg PO DAILY 90 days fluocinolone acetonide oil 0.01% (DermOtic Oil) 5 drps otic (ears) BID 7 days fluoxetine 10 mg PO DAILY 90 days glucose (Dex4 Glucose) 16 grams (4 x 4 gram) PO Q15M PRN meloxicam 15 mg PO DAILY 90 days metformin 1,000 mg PO BID 90 days pioglitazone 45 mg PO DAILY 90 days repaglinide 0.5 mg PO TID 30 days trazodone 50 mg PO BEDTIME PRN 90 days HPI HPI T2DM: Details: Patient is a 63-year-old male with a significant past medical history of rheumatoid arthritis, dish, depression, CAD, hypertension, hyperlipidemia and type 2 diabetes presenting today for initial consult regarding diabetes. Route Jumper Stone #[id number] Endo: Dm-his most recent A1c was 8.6. He states that he was diagnosed around 2014. He is currently on metformin 1000 mg twice a day, pioglitazone 45 mg daily, repaglinide 0.5 mg 3 times a day, Jardiance 25 mg daily and most recently started on Trulicity 0.75 mg weekly. He was provided a Uriel 3 that his last visit with me and his time in range is 95%, 5% hypergylcemia. He states that that was caused by rice, bread or potatoes. He does not want to eat these anymore. His insurance is not covering the sensors as he is not on insulin. He monitors his blood sugars only once a week because he does not like sticking his fingers. He states it is painful and he does not like needles. He states when he checks his blood sugars are around 180-250. He has not checked it a couple of weeks. He has an appointment with our certified adapted physical educator next week. Denies hypoglycemic events. Correct low blood sugars with candy, soda, or juice He does have microalbuminuria. He has a fam hx of t1dm and t2dm. He has never seen an supervisor cap and hat production before. His sister is an supervisor cap and hat production in [place] and encouraged him to be seen. He has never had formal diabetic education and thinks this would be helpful. CV: Blood pressure today in the office is 128/62. He is currently on carvedilol 12.5 mg weekly, amlodipine 5 mg daily. Not on an DEB inhibitor. He is on atorvastatin 80 mg for cholesterol control. His LDL goal is less than 70. He is well-controlled. LFTs WNL. [facility] Medical History (Updated 07/06/24 @ 08:55 by Ann-Marie Reza PA-C) Skin lesion DISH (diffuse idiopathic skeletal hyperostosis) Mild major depression, single episode Hypovitaminosis D Thoracic spine pain Lumbar pain Right knee pain Left knee pain Neck pain Polyarthralgia Fatigue Pure hypercholesterolemia with target low density lipoprotein (LDL) cholesterol less than 70 mg/dL Insomnia CAD (coronary artery disease) Essential hypertension Surgical History S/P colonoscopic polypectomy S/P CABG x 3 Family History Father Diabetes Hypertension CVD (cardiovascular disease) COPD (chronic obstructive pulmonary disease) Mother Diabetes Hypertension CVD (cardiovascular disease) Cancer Family/Other Mental health disorder Sister Breast cancer Social History Housing: Apartment Alcohol intake: current Alcohol intake frequency: a few times a month Alcohol type: beer Patient Tobacco Use Status: Never used Tobacco e-Cigarette/Vaping Use: Never Used Second Hand Smoke Exposure: No service: No Current occupational status: disabled Cognitive needs: No Hearing needs: No Vision needs: Yes Physical Exam Vital Signs: Last Vital Signs Pulse 76 07/24/24 08:34 BP 128/62 07/24/24 08:34 BMI result Body Mass Index 27.1 Const Orientation/consciousness: patient oriented x3 HEENT Ears: hearing grossly normal bilaterally Neck Thyroid: Thyroid normal Lymphatic: no lymphadenopathy noted Resp Auscultation: clear to auscultation bilaterally Cardio Rate: regular rate Rhythm: regular rhythm Heart sounds: S1 normal heart sound present and S2 normal heart sound present Skin General skin exam: no rashes or lesions noted Neuro General: patient oriented x3, gait normal and no focal motor deficits Quality Reporting (2019) Adult ([facility] 138/07/25/68) Smoking risk assessment performed?: Yes Patient Tobacco Use Status: Never used Tobacco Results Reviewed Results Reviewed: Laboratory Last Values Glucose (Clinic) 151 mg/dL (60-115) H 07/24/24 08:41 Assessment & Plan Assessment & Plan (1) Uncontrolled type 2 diabetes mellitus with hyperglycemia: Code(s): E11.65 - Type 2 diabetes mellitus with hyperglycemia Category: Medical Plan: continue metformin 1000 mg twice a day, pioglitazone 45 mg daily, Jardiance 25 mg daily increase trulicity to 1.5 mg weekly d/c repaglinide 0.5 mg 3 times a day He was provided another sensor today in the office. Follow up in 2-3 months. Sooner if needed. (2) Essential hypertension: Code(s): I10 - Essential (primary) hypertension Category: Medical Plan: WNL. Continue current regimen (3) Pure hypercholesterolemia with target low density lipoprotein (LDL) cholesterol less than 70 mg/dL: Code(s): E78.00 - Pure hypercholesterolemia, unspecified Category: Medical Plan: Continue atorvastatin 80 mg. Medications: New dulaglutide (Trulicity) 1.5 mg (0.5 mL) subcut QWEEK 2 mL 2RF Discontinued repaglinide administer within 30 minutes of a meal or snack Discontinued Reason: Doctor's Order 0.5 mg PO TID 30 days 90 tabs 1RF Patient Instructions: continue metformin 1000 mg twice a day, pioglitazone 45 mg daily, Jardiance 25 mg daily increase trulicity to 1.5 mg weekly STOP repaglinide 0.5 mg 3 times a day Coding Level of Care Code Est Pt Level 4 (45101) Complex EM visit Add On G2211 Diagnoses Uncontrolled type 2 diabetes mellitus with hyperglycemia E11.65 Essential hypertension I10 Pure hypercholesterolemia with target low density lipoprotein (LDL) cholesterol less than 70 mg/dL E78.00
[2024-07-24 08:44] LABS: Glucose, Whole Blood 151 mg/dL (60-115)
== END 2024-07-24 09:07 | disposition home or self-care (01) ==
PROVIDERS: PCP Internal Medicine; Visit Provider Physician Assistant
DX: E11.65 Type 2 diabetes mellitus with hyperglycemia (principal); I10 Essential (primary) hypertension; E78.00 Pure hypercholesterolemia, unspecified

== ENCOUNTER → 2024-07-24 08:05 | Outpatient (BNVA) | payer OTHER, SELFPAY | PROVIDERS: PCP Internal Medicine; Visit Provider Physician Assistant | DX: E11.65 Type 2 diabetes mellitus with hyperglycemia (principal); I10 Essential (primary) hypertension; E78.00 Pure hypercholesterolemia, unspecified | CPT/HCPCS: 82947; 99212 ==

== ENCOUNTER 2024-08-05 08:37 | Outpatient (AMB) | payer OTHER, SELFPAY ==
--- NOTE | 2024-08-05 09:01 | A.OFFVIS_ITS ---
Vital Signs 08/05/24 09:16 Height 5 ft 5 in Weight 162 lb BMI 27.0 BP 120/80 Blood Pressure Location Rt brachial Position Sitting Pulse 85 Pulse Source Pulse Oximeter Pulse Oximetry (%) 98 Oxygen Delivery Method Room Air Intake Visit Reasons: follow up Intake Note: Patient presents for follow up on RA today. Lunch Wagon Operator Services: Lunch Wagon Operator Present Lunch Wagon Operator Name: antonietta Information Interpreted: non-clinical & clinical Allergies No Known Allergies Allergy (Verified 08/05/24 09:15) HPI HPI follow up: Details: Triggering resolved. He feels well. No morning stiffness. Sometimes he takes meloxicam for pain when he has back pain. He is not taking it regularly. [facility] Medical History Skin lesion DISH (diffuse idiopathic skeletal hyperostosis) Mild major depression, single episode Hypovitaminosis D Thoracic spine pain Lumbar pain Right knee pain Left knee pain Neck pain Polyarthralgia Fatigue Pure hypercholesterolemia with target low density lipoprotein (LDL) cholesterol less than 70 mg/dL Insomnia CAD (coronary artery disease) Essential hypertension Surgical History S/P colonoscopic polypectomy S/P CABG x 3 Family History Father Diabetes Hypertension CVD (cardiovascular disease) COPD (chronic obstructive pulmonary disease) Mother Diabetes Hypertension CVD (cardiovascular disease) Cancer Family/Other Mental health disorder Sister Breast cancer Social History Housing: Apartment Alcohol intake: current Alcohol intake frequency: a few times a month Alcohol type: beer Patient Tobacco Use Status: Never used Tobacco e-Cigarette/Vaping Use: Never Used Second Hand Smoke Exposure: No service: No Current occupational status: disabled Cognitive needs: No Hearing needs: No Vision needs: Yes Physical Exam Vital Signs: Last Vital Signs Pulse 85 08/05/24 09:16 BP 120/80 08/05/24 09:16 Pulse Ox 98 08/05/24 09:16 Oxygen Delivery Method Room Air 08/05/24 09:16 BMI result Body Mass Index 27.0 Const Other: General: Comfortable CVS: RRR Respiratory: clear to auscultation bilaterally. Good respiratory effort Skin: No lesions seen MSK: Tender to palpate right 3rd MCP, left 2nd MCP with synovitis of right 5th MCP. Weak saddle stitcher. No triggering observed. Good range of motion of upper extremities and lower extremities. No MTP tenderness. Quality Reporting (2019) Adult ([facility] 138/07/25/68) Smoking risk assessment performed?: Yes Patient Tobacco Use Status: Never used Tobacco Assessment & Plan Assessment & Plan (1) Rheumatoid arthritis: Comment: Seronegative. He has improvement of synovitis. After cortisone injections for trigger finger, he has improvement in polyarthralgias and stiffness in his right hand. We discussed next steps in treatment with DMARD therapy. Discussed side effects, benefits and drug monitoring on methotrexate. Code(s): M06.9 - Rheumatoid arthritis, unspecified Category: Medical Qualifiers: Rheumatoid arthritis location: unspecified site Rheumatoid factor presence: unspecified presence Qualified Code(s): M06.9 - Rheumatoid arthritis, unspecified Plan: Labs ordered prior to starting methotrexate. After lab results are back, I will send prescription for methotrexate 12.5 mg once weekly and folic acid 1 mg daily. He with that and have labs for drug monitoring 1 month after starting methotrexate. Return to clinic in 3 months (2) Trigger finger: Comment: Right 4th and 5th finger resolved with cortisone injections from last visit Code(s): M65.30 - Trigger finger, unspecified finger Category: Medical Qualifiers: Trigger finger location: unspecified finger Laterality: right Qualified Code(s): M65.30 - Trigger finger, unspecified finger Plan: Monitor clinically Orders: Orders Aspartate Amino Transferase Today Z79.60 - long term acute care registered nurse (current) use of unspecified immunomodulators and immunosuppressants C Reactive Protein Today Z79.899 - Other machine long goods helper (current) drug therapy Erythrocyte Sedimentation Rate Today Z79.899 - Other machine long goods helper (current) drug therapy Alanine Aminotransferase 4 Weeks Z79.60 - long term acute care registered nurse (current) use of u nspecified immunomodulators and immunosuppressants Alanine Aminotransferase Today Z79.60 - nursing home (current) use of unspecified immunomodulators and immunosuppressants Complete Blood Count Auto Diff Today Z79.60 - long term acute care registered nurse (current) use of unspecified immunomodulators and immunosuppressants Creatinine Today Z79.60 - long term acute care registered nurse (current) use of unspecified immunomodulators and immunosuppressants Complete Blood Count Auto Diff 4 Weeks Z79.60 - long term acute care registered nurse (current) use of unspecified immunomodulators and immunosuppressants Creatinine 4 Weeks Z79.60 - nursing home (current) use of unspecified immunomodulators and immunosuppressants Aspartate Amino Transferase 4 Weeks Z79.60 - nursing home (current) use of unspecified immunomodulators and immunosuppressants Coding Level of Care Code Est Pt Level 4 (62978) Complex EM visit Add On G2211 Diagnoses Rheumatoid arthritis, involving unspecified site, unspecified whether rheumatoid factor present M06.9 Rheumatoid arthritis location: unspecified site Rheumatoid factor presence: unspecified presence Trigger finger of right hand, unspecified finger M65.30 Trigger finger location: unspecified finger Laterality: right
--- OUTSIDE RECORDS SUMMARY | 2024-08-05 09:15 | XMS_ITS | Clinical Summary ---
Author Organization [facility] Facility Address [address] [place] [id number] Care Team Providers Care Range Mechanic Name Role Phone Sylvia Denny MD Primary Care Provider [phone] Allergies No known active allergies Medications Acetaminophen [...] the evening. 06/25/2022 Active ergocalciferol 1.25 MG (36890 UT) capsule Take 50,000 Units by mouth 1 (one) time per week Active Active Problems Problem Noted Date Diagnosed Date Hypertension 08/19/2023 Dyslipidemia 08/19/2023 Diabetes mellitus, not otherwise specified 08/18 Atherosclerotic heart diseas e of [place] coronary artery without angina pectoris, not otherwise [...] to complete this topic Insurance Care Teams Range Mechanic Relationship Specialty Start Date End Date Sylvia Denny MD [address] [place] [address] PCP - General Internal Medicine 05/29/22
[2024-08-05 09:16] VITALS: BP 120/80; PULSE 85; O2SAT 98; BMI 27.0
== END 2024-08-05 09:45 | disposition home or self-care (01) ==
PROVIDERS: PCP Internal Medicine; Visit Provider Internal Medicine Rheumatology
DX: M06.9 Rheumatoid arthritis, unspecified (principal); M65.30 Trigger finger, unspecified finger
CPT/HCPCS: 99214; G2211

== ENCOUNTER 2024-08-05 08:37 | Outpatient (REF) | payer OTHER, SELFPAY ==
--- OUTSIDE RECORDS SUMMARY | 2024-08-05 11:16 | XMS_ITS | Clinical Summary ---
Author Organization [facility] Facility Address [address] [place] [address] Care Team Providers Care Quarter Backer Name Role Phone Sylvia Denny MD Primary Care Provider [phone] Allergies No known active allergies Medications Acetaminophen [...] the evening. 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
[2024-08-05 17:55] LABS: MANUAL DIFF FLAG NO
[2024-08-05 18:13] LABS: Alanine Aminotransferase 18 U/L (0-40); Aspartate Amino Transferase 37 U/L (5-37); C Reactive Protein < 0.10 mg/dL (< or = 0.50); Estimated Glomerular Filt Rate > 60
[2024-08-05 18:29] LABS: Basophils Percent Auto 0.4 % (0-2); Eosinophils Absolute Auto 0.1 X10*3/uL (0.0-0.4); Eosinophils Percent Auto 1.6 % (0-4); Hematocrit 44.3 % (42.0-52.0); Hemoglobin 15.1 g/dl (14.0-18.0); Imm Gran Abs Auto 0.01 X10*3/uL (0.00-0.03); Imm Gran Pct Auto 0.2 % (0.0-0.4); Lymphocytes Absolute Auto 2.1 X10*3/uL (1.2-4.9); Lymphocytes Percent Auto 36.7 % (20-40); Mean Corpuscular HGB Conc 34.1 g/dl (31.0-36.0); Mean Corpuscular Hemoglobin 32.2 pg (27.0-33.0); Mean Corpuscular Volume 94.5 fL (80.0-98.0); Mean Platelet Volume 9.9 fL (9.4-12.4); Monocytes Absolute Auto 0.5 X10*3/uL (0.1-1.2); Monocytes Percent Auto 9.3 % (2-11); Neutrophils Percent Auto 51.8 % (45-73); Platelet Count 249 X10*3/uL (160-400); Red Blood Count 4.69 X10*6/uL (4.60-5.80); Red Cell Distribution Width 12.3 % (11.0-16.0); White Blood Count 5.7 X10*3/uL (4.8-10.8)
[2024-08-05 18:50] LABS: Erythrocyte Sedimentation Rate 6 MM/HR (0-15)
== END 2024-08-05 08:38 | disposition home or self-care (01) ==
LOC: HO.HKASLDS 08:37
PROVIDERS: PCP Internal Medicine; Visit Provider Internal Medicine Rheumatology
DX: M06.9 Rheumatoid arthritis, unspecified (principal); M65.30 Trigger finger, unspecified finger; Z79.60 Long term (current) use of unspecified immunomodulators and immunosuppressants; Z79.899 Other long term (current) drug therapy
CPT/HCPCS: 36415; 82565; 84450; 84460; 85025; 85652; 86140; 99212

== ENCOUNTER 2024-08-12 08:05 | Outpatient (AMB) | payer OTHER, SELFPAY ==
--- OUTSIDE RECORDS SUMMARY | 2024-08-12 08:09 | XMS_ITS | Clinical Summary ---
Author Organization [facility] Facility Address [address] [place] [address] Care Team Providers Care Black Belt Name Role Phone Sylvia Denny MD Primary Care Provider [phone] Allergies No known active allergies Medications Acetaminophen [...] the evening. 06/25/2022 Active ergocalciferol 1.25 MG (24086 UT) capsule Take 50,000 Units by mouth 1 (one) time per week Active Active Problems Problem Noted Date Diagnosed Date Hypertension 08/19/2023 Dyslipidemia 08/19/2023 Diabetes mellitus, not otherwise specified 08/18 Atherosclerotic heart diseas e of [place] coronary artery without angina pectoris, not [...] to complete this topic Insurance Care Teams Black Belt Relationship Specialty Start Date End Date Sylvia Denny MD [address] [place] [address] PCP - General Internal Medicine 05/29/22
--- NOTE | 2024-08-12 09:04 | A.OFFVIS_ITS ---
Intake Intake Visit Reasons: Type 2 diabetes mellitus with hyperglycemia Control Panel Assembler Required: Yes Control Panel Assembler Language: Stock Supervisor Name: Lelia [id number] Information Interpreted: non-clinical & clinical Accompanied by: Self / Same As Patient Allergies No Known Allergies Allergy (Verified 08/05/24 09:15) [facility] Comprehensive Diabetes Asmnt Most Recent Diabetes Results: Microalb/Creat Ratio 37.8 ug/mg cr (<30) H 06/11/24 Cholesterol 112 mg/dL (<200) 06/11/24 HDL Cholesterol 43 mg/dL (>40) 06/11/24 Triglycerides 116 mg/dL (<150) 06/11/24 Creatinine 0.98 mg/dL (0.5-1.4) 08/05/24 Blood Urea Nitrogen 20 mg/dL (9-16) H 06/11/24 Sodium 140 mmol/L (135-145) 06/11/24 Potassium 4.0 mmol/L (3.3-5.1) 06/11/24 Chloride 105 mmol/L (96-108) 06/11/24 Carbon Dioxide 26 mmol/L (22-29) 06/11/24 Calcium 9.0 mg/dL (8.4-10.2) 06/11/24 AST 37 U/L (5-37) 08/05/24 ALT 18 U/L (0-40) 08/05/24 Total Protein 7.8 g/dL (6.5-8.0) 06/11/24 Albumin 4.4 g/dL (3.5-5.0) 06/11/24 [facility] Medical History Skin lesion DISH (diffuse idiopathic skeletal hyperostosis) Mild major depression, single episode Hypovitaminosis D Thoracic spine pain Lumbar pain Right knee pain Left knee pain Neck pain Polyarthralgia Fatigue Pure hypercholesterolemia with target low density lipoprotein (LDL) cholesterol less than 70 mg/dL Insomnia CAD (coronary artery disease) Essential hypertension Surgical History S/P colonoscopic polypectomy S/P CABG x 3 Family History Father Diabetes Hypertension CVD (cardiovascular disease) COPD (chronic obstructive pulmonary disease) Mother Diabetes Hypertension CVD (cardiovascular disease) Cancer Family/Other Mental health disorder Sister Breast cancer Social History Housing: Apartment Alcohol intake: current Alcohol intake frequency: a few times a month Alcohol type: beer Patient Tobacco Use Status: Never used Tobacco e-Cigarette/Vaping Use: Never Used Second Hand Smoke Exposure: No service: No Current occupational status: disabled Cognitive needs: No Hearing needs: No Vision needs: Yes Assessment & Plan Assessment & Plan (1) Uncontrolled type 2 diabetes mellitus with hyperglycemia: Code(s): E11.65 - Type 2 diabetes mellitus with hyperglycemia Plan: Diabetes self-management education and support participation record Assessment/scale: 1= needs instructed? 2= needs review? 3= comprehend keep point? 4= demonstrates understanding/ competent? NC= Not Covered Topics Learning Objective: Initial visit Initial or post srvc Initial or post srvc Initial or post srvc Initial or post srvc Initial or post srvc Post srvc Comments Pre Edu-assessment/plan Outcome or reassess Outcome or reassess Outcome or reassess Outcome or reassess Outcome or reassess Outcome or reassess Diabetes pathophysiology 1 Healthy eating 1 Being active 1 Taking medication 1 Monitoring glucose 2 Acute complication Chronic complicated Lifestyle and healthy coping Diabetes distress in support ?Diabetes pathophysiology: ?Defined diabetes med identify own type of diabetes; list 3 options for treating diabetes Healthy eating: ?Described effect of type, amount and ?timing of food on blood glucose; list 3 methods for planning meal Being active: ?State effect of exercise on blood glucose level Taking medication: ?State effect of diabetes medications on diabetes; name diabetes medications taking, action and side effects Monitoring glucose: ?Identify recommended blood glucose targets and personal target Acute complication: ?List symptoms and treatment of hyper and hypoglycemia, DKA, sick day guidelines and guidelines for severe weather or situations of crisis and diabetes supply manage Chronic complication: ?To find the relationship of blood glucose levels to long- term complications of diabetes in screening and preventative measures Lifestyle and healthy coping: ?Described lifestyle and healthy coping strategies to rule out diabetes self-management Diabetes to stress and support: ?Recognize Diabetes to stress and be able to identified support options Patient Assessment Assess patient education level/literacy/barriers, A1c was 8.6. on 06/18/24. Reports that he was diagnosed around 2014. He is currently on metformin 1000 mg twice a day, pioglitazone 45 mg daily, repaglinide 0.5 mg 3 times a day, Jardiance 25 mg daily and most recently started on Trulicity 0.75 mg weekly. No nausea or vomiting. He monitors his blood sugars only once a week because he does not like sticking his fingers. He states it is painful and he does not like needles. He states when he checks his blood sugars are around 180-250. He has not checked it a couple of weeks. Learning objectives: The patient was provided with verbal and written education on the following topics as outlined below. The patient met all learning objectives and was able to verbalize understanding and provide teach back of education topics discussed . The patient was provided with the opportunity to ask questions and all questions were answered. What is Diabetes? Pathophysiology How the body produces and uses insulin Identify type of DM Risk factors Signs of Diabetes Brief overview of Diabetes Management Monitoring blood sugar Following a meal plan Regular exercise Maintaining a healthy weight Taking medication as needed Members of the care team (PCP, RN, MA, RD, CDE, service attendant cafeteria) Blood glucose monitoring When/how often to test Target blood sugar ranges Patient was given freestyle Uriel 3 sensor sample at last visit, he use cell phone to glucose Average glucose while wearing sensor 126 mg/dL Patient above target 5% At target 95% Below target 0% Patient's insurance will not cover CGM because he is not currently on insulin Patient given information regarding Dexcom Stelo if he is interested in continuing with CGM Introduction to Nutrition Importance of healthy diet in managing DM Diet is personalized to individual preference Review patient?s regular diet/food preferences Who prepares meals/does food shopping/ Dining out?/ Barriers? How diet effects glucose Eating 3 balanced meals a day with small, healthy snacks between meals Review food groups Carbohydrates: What is a carbohydrate/Which food/food groups are considered carbohydrates Effect of carbohydrates on blood glucose Portion sizes Reading food labels Basic carb counting (if applicable per nursing assessment) Plate method Meal planning Recommendations: Follow plate method, consistent carbs and read nutritional labels. Smart Goal: Patient will use measuring cups to portion carbohydrates at mealtimes between now and next visit Educational Materials: The patient was provided with the following written educational materials: Planning Healthy Meals Handout Patient Response to instructions: Comprehension of Instructions: Fair Readiness to make changes: Contemplation How confident they feel about making changes: Positive Portions of this note were created using voice recognition software, please excuse any words or phrases that may have been misinterpreted. Patient Instructions: Incluir actividad diaria regular. ADA recomienda 30 minutos de ejercicio 5 d?as a la semana. P?rdida de peso, hable con el PCP o el cardi?logo antes de comenzar un nuevo plan. Mida el nivel de az?car en la levy seg?n las indicaciones; Ayuno y comida m?s jemal de 2hpp. Observe las tendencias en los resultados. Utilice los resultados y eval?e c?mo los alimentos, la actividad f?dea y los medicamentos afectan los resultados de az?car en la levy. Lleve el gluc?metro o CGM a la pr?xima visita. Conocer los medicamentos para la diabetes, rodriguez acci?n, los efectos secundarios, la eficacia, la toxicidad, la dosis prescrita, el momento y la frecuencia de administraci?n apropiados, el efecto de las dosis olvidadas y retrasadas y las instrucciones de almacenamiento, viaje y seguridad. T?cnicas de resoluci?n de problemas para el seguimiento de episodios de hipo /hiperglucemia y tratamientos. Reducir los comportamientos de reducci?n de riesgos, dejar de fumar, ex?menes regulares de ojos, pies y dentales. Coding Level of Care Code Est Pt Level 1 (09151) Diagnoses Uncontrolled type 2 diabetes mellitus with hyperglycemia E11.65
== END 2024-08-12 09:26 | disposition home or self-care (01) ==
LOC: HO.ENCR 08:05
PROVIDERS: PCP Internal Medicine; Visit Provider Registered Nurse Diabetes Educator
DX: E11.65 Type 2 diabetes mellitus with hyperglycemia (principal)

== ENCOUNTER → 2024-08-12 08:05 | Outpatient (BNVA) | payer OTHER, SELFPAY | PROVIDERS: PCP Internal Medicine; Visit Provider Registered Nurse Diabetes Educator | DX: E11.65 Type 2 diabetes mellitus with hyperglycemia (principal); Z79.84 Long term (current) use of oral hypoglycemic drugs; Z79.85 Long-term (current) use of injectable non-insulin antidiabetic drugs | CPT/HCPCS: 99211 ==

== ENCOUNTER 2024-10-30 06:36 | Outpatient (REF) | payer OTHER, SELFPAY ==
[2024-10-30 06:57] LABS: MANUAL DIFF FLAG NO
[2024-10-30 07:06] LABS: Basophils Percent Auto 0.5 % (0-2); Eosinophils Absolute Auto 0.2 X10*3/uL (0.0-0.4); Eosinophils Percent Auto 2.6 % (0-4); Hematocrit 40.7 % (42.0-52.0); Hemoglobin 13.9 g/dl (14.0-18.0); Imm Gran Abs Auto 0.01 X10*3/uL (0.00-0.03); Imm Gran Pct Auto 0.2 % (0.0-0.4); Lymphocytes Percent Auto 31.6 % (20-40); Mean Corpuscular HGB Conc 34.2 g/dl (31.0-36.0); Mean Corpuscular Hemoglobin 32.5 pg (27.0-33.0); Mean Corpuscular Volume 95.1 fL (80.0-98.0); Mean Platelet Volume 9.8 fL (9.4-12.4); Monocytes Absolute Auto 0.7 X10*3/uL (0.1-1.2); Monocytes Percent Auto 11.9 % (2-11); Neutrophils Absolute Auto 3.3 x10*3/uL (2.0-8.3); Neutrophils Percent Auto 53.2 % (45-73); Platelet Count 206 X10*3/uL (160-400); Red Blood Count 4.28 X10*6/uL (4.60-5.80); Red Cell Distribution Width 12.6 % (11.0-16.0); White Blood Count 6.2 X10*3/uL (4.8-10.8)
[2024-10-30 07:44] LABS: Alanine Aminotransferase 29 U/L (0-40); Albumin Level 4.7 g/dL (3.5-5.0); Alkaline Phosphatase 79 U/L (39-117); Anion Gap 13 (12-20); Aspartate Amino Transferase 28 U/L (5-37); Bilirubin Total 0.7 mg/dL (0.0-1.0); Blood Urea Nitrogen 17 mg/dL (9-16); Calcium 9.8 mg/dL (8.4-10.2); Carbon Dioxide 29 mmol/L (22-29); Chloride 103 mmol/L (96-108); Cholesterol 95 mg/dL (<200); Estimated Glomerular Filt Rate > 60; Glucose Fasting 136 mg/dL (60-99); HDL Cholesterol 46 mg/dL (>40); LDL Cholesterol Calculated 38 mg/dL (<100); Potassium 5.2 mmol/L (3.3-5.1); Sodium 140 mmol/L (135-145); Total Protein 7.5 g/dL (6.5-8.0); Triglycerides 58 mg/dL (<150)
[2024-10-30 08:00] LABS: Vitamin D 25-OH Total 33.9 ng/mL (>30)
[2024-10-30 08:27] LABS: Microalbum/Creatinine Ratio Ur 24.4 ug/mg cr (<30)
[2024-10-31 04:48] LABS: C Peptide 2.05 ng/mL (0.80-3.85)
[2024-11-02 22:23] LABS: Glutamic acid decarboxylase Ab <5 IU/mL (<5)
[2024-11-05 00:28] LABS: Islet Cell Antibody Screen NEGATIVE (NEGATIVE)
== END 2024-10-30 06:37 | disposition home or self-care (01) ==
LOC: HO.LAB 06:36
PROVIDERS: Absent Provider Physician Assistant; PCP Internal Medicine; Visit Provider Internal Medicine Rheumatology
DX: E11.65 Type 2 diabetes mellitus with hyperglycemia (principal); E78.5 Hyperlipidemia, unspecified; R80.9 Proteinuria, unspecified; E55.9 Vitamin D deficiency, unspecified; Z79.60 Long term (current) use of unspecified immunomodulators and immunosuppressants
CPT/HCPCS: 36415; 80053; 80061; 82043; 82306; 82570; 84681; 85025; 86341

== ENCOUNTER 2024-12-01 08:05 | Outpatient (AMB) | payer OTHER, SELFPAY ==
--- NOTE | 2024-12-01 08:11 | A.OFFVIS_ITS ---
Vital Signs 12/01/24 08:12 Height 5 ft 5 in Weight 162 lb BMI 27.0 BP 120/70 Blood Pressure Location Lt brachial Position Sitting Pulse 79 Pulse Source Pulse Oximeter Pulse Oximetry (%) 98 Oxygen Delivery Method Room Air Intake Visit Reasons: 3 Months Intake Note: Patient presents for follow up on RA today. Station Installation Supervisor Name: [id number] Allergies No Known Allergies Allergy (Verified 12/01/24 08:12) HPI HPI 3 Months: Details: Pain is better controlled. he has intermittent joint pain involving his knees and ankles. No joint swelling. MS 30 minutes - 1 hour No recent infections PFSH Medical History Skin lesion DISH (diffuse idiopathic skeletal hyperostosis) Mild major depression, single episode Hypovitaminosis D Thoracic spine pain Lumbar pain Right knee pain Left knee pain Neck pain Polyarthralgia Fatigue Pure hypercholesterolemia with target low density lipoprotein (LDL) cholesterol less than 70 mg/dL Insomnia CAD (coronary artery disease) Essential hypertension Surgical History S/P colonoscopic polypectomy S/P CABG x 3 Family History Father Diabetes Hypertension CVD (cardiovascular disease) COPD (chronic obstructive pulmonary disease) Mother Diabetes Hypertension CVD (cardiovascular disease) Cancer Family/Other Mental health disorder Sister Breast cancer Social History Housing: Apartment Alcohol intake: current Alcohol intake frequency: a few times a month Alcohol type: beer Patient Tobacco Use Status: Never used Tobacco e-Cigarette/Vaping Use: Never Used Second Hand Smoke Exposure: No service: No Current occupational status: disabled Cognitive needs: No Hearing needs: No Vision needs: Yes Physical Exam Vital Signs: Last Vital Signs Pulse 79 12/01/24 08:12 BP 120/70 12/01/24 08:12 Pulse Ox 98 12/01/24 08:12 Oxygen Delivery Method Room Air 12/01/24 08:12 BMI result Body Mass Index 27.0 Const Other: General: Comfortable CVS: RRR Respiratory: clear to auscultation bilaterally. Good respiratory effort Skin: No lesions seen MSK: Tender to palpate right 2nd PIP with synovitis, IP joint and wrist. Tende r left 2nd PIP. No triggering observed. He has limited full internal rotation of bilateral shoulders with pain. Normal range of motion of lower extremities. Bilateral MTP pain on palpation. Assessment & Plan Assessment & Plan (1) Rheumatoid arthritis: Comment: Seronegative. He continues to have synovitis right 2nd PIP and tender small joints in his hands and feet due to uncontrolled inflammatory arthritis. He is out of MTX and did not receive refills. Code(s): M06.9 - Rheumatoid arthritis, unspecified Category: Medical Qualifiers: Rheumatoid arthritis location: unspecified site Rheumatoid factor presence: unspecified presence Qualified Code(s): M06.9 - Rheumatoid arthritis, unspecified Plan: Restart methotrexate 12.5mg once weekly and folic acid 1 mg daily Labs for drug monitoring UTD 10/29/2024. Due next visit Return to clinic in 3 months (2) Other laborer marine terminal (current) drug therapy: Code(s): Z79.899 - Other laborer marine terminal (current) drug therapy Category: Medical Plan: See above Medications: Changed From methotrexate sodium Check labs at [facility] lab in 4 weeks 12.5 mg (5 x 2.5 mg) PO QWEEK 20 tabs 0RF To methotrexate sodium 12.5 mg (5 x 2.5 mg) PO QWEEK 60 tabs 0RF 12 weeks Refilled folic acid 1 mg PO DAILY 90 tabs 3RF Coding Level of Care Code Est Pt Level 4 (54972) Complex EM visit Add On G2211 Diagnoses Rheumatoid arthritis, involving unspecified site, unspecified whether rheumatoid factor present M06.9 Rheumatoid arthritis location: unspecified site Rheumatoid factor presence: unspecified presence Other laborer marine terminal (current) drug therapy Z79.899
--- OUTSIDE RECORDS SUMMARY | 2024-12-01 08:11 | XMS_ITS | Clinical Summary ---
Author Organization [address] [facility] Address [address] [place] [address] Phone Care Team Providers Care Vacuum Evaporation Operator Name Role Phone Sylvia Peters MD Primary Care Provider [phone] Allergies No known active allergies Encounters Date Type Department Care Team Description 09/29/2024 7:00 AM EDT Ancillary Procedure [facility] [address] [facility] [address] [place] [id number] Peripheral artery disease ([facility]/HCC V24) 09/15/2024 8:45 AM EDT Consult Orthopedic Surgery - [place] [address] [facility] [address] [place] [phone] Clinton Sierra, [place] Controlled type 2 diabetes mellitus with diabetic polyneuropathy, without long-term current use of insulin (CMS/HCC V24, CMS/HCC V28) (Primary Dx); Hammer toes, bilateral; Peripheral artery disease (CMS/HCC V24); Ingrown left big toenail; Corns and callosities; Onychomycosis from Last 3 Months Social History Tobacco Use Types Packs/Day Years Used Date Smoking Tobacco: Never Smokeless Tobacco: Never Alcohol Use Standard Drinks/Week Comments Yes 0 (1 standard drink = 0.6 oz pur e alcohol) Sex and Gender Information Value Date Recorded Sex Assigned at Not on file Legal Sex Male 3:51 AM EST Gender Identity Not on file Sexual Orientation Not on file Obstetrics History Last Filed Vital Signs Vital Sign Reading Time Taken Comments Blood Pressure 130/78 02/22/2023 8:05 AM EDT Sit ting L Arm Pulse 89 02/22/2023 8:05 AM EDT Temperature - - Respiratory Rate - - Oxygen Saturation - - Inhaled Oxygen Concentration - - Weight 73.5 kg (162 lb) 09/15/2024 8:15 AM EDT Height 165.1 cm (5' 5 ) 09/15/2024 8:15 AM EDT Body Mass Index 26.96 09/15/2024 8:15 AM EDT Plan of Treatment Health Maintenance Due Date Last Done Comments Diabetes: Annual Foot Exam 1970 Diabetes: Annual Retina Eye Exam 1970 DTaP,Tdap,and Td Vaccines (1 - Tdap) 1979 Pneumococcal Vaccine: 50+ Ye ars (1 of 2 - PCV) 1979 Pneumococcal Vaccine: Pediat rics (0 to 5 Years) and At-Risk Patients (6 to 64 Years) (1 of 2 - PCV) 1979 Zoster Vaccines (1 of 2) 2010 RSV Immunization Adult Patie nts (1 - Risk 60-74 years 1-dose series) 2020 Cholesterol Screening (Lipid Panel) 05/13/2022 Colorectal Cancer Screening: Colonoscopy 05/13/2022 Depression Screening 05/13/2022 HIV Screening 05/13/2022 Hepatitis C Screening 05/13/2022 Social Influencers of Health Screening 05/13/2022 COVID-19 Vaccine ( - 2023-2 5 season) 2024 Diabetes: Annual Urine Albumin-Creatinine Ratio (uACR) 09/15/2024 Diabetes: Blood Sugar Contro l Test (HGBA1C) 09/15/2024 Diabetes: Annual GFR (Glomer ular Filtration Rate) 09/22/2024 09/23/2023 Hypertension/CHF/CAD Annual BMP Blood Test 09/22/2024 09/23/2023 Influenza Vaccine (Season Ended) 2025 HIB Vaccines Aged Out No longer eligi ble based on patient's age to complete this topic HPV Vaccines Aged Out No longer eligi ble based on patient's age to complete this topic Hepatitis A Vaccines Aged Out No long er eligible based on patient's age to complete this topic Hepatitis B Vaccines Aged Out No long er eligible based on patient's age to complete this topic IPV Vaccines Aged Out No longer eligi ble based on patient's age to complete this topic MMR Vaccines Aged Out No longer eligi ble based on patient's age to complete this topic Meningococcal ACWY Vaccine Aged Out N o longer eligible based on patient's age to complete this topic Meningococcal B Vaccine Aged Out No l onger eligible based on patient's age to complete this topic RSV Immunization Patients Un rach 20 months Aged Out No longer eligible b ased on patient's age to complete this topic Varicella Vaccines Aged Out No longer eligible based on patient's age to complete this topic Procedures Procedure Name Priority Date/Time Associated Diagnosis Comments VAS US DUPLEX LOWER EXT ARTERIES BILAT WITH JUD Routine 09/29/2024 7:53 AM EDT Peripheral artery disease (CMS/[facility] V24) from Last 3 Months Results * Vascular US duplex lower extremity arteries bilateral with JUD (09/29/2024 7:53 AM EDT) Left Dist External Iliac PSV 106 cm/s CV VAS LAB Left Prox External Iliac PSV 90 cm/s CV VAS LAB Left AT dist sys PSV 43 cm/s CV VAS LAB Left AT mid sys PSV 73 cm/s CV VAS LAB Left AT prox sys PSV 95 cm/s CV VAS LAB Left SAWMILL PRODUCTION WORKER prox sys PSV 89 cm/s CV VAS LAB Left mid peroneal sys PSV 77 cm/s CV VAS LAB Left popliteal dist sys PSV 79 cm/s CV VAS LAB Left popliteal prox sys PSV 71 cm/s CV VAS LAB Left PT dist sys PSV 84 cm/s CV VAS LAB Left PT mid sys PSV 120 cm/s CV VAS LAB Left PT prox sys PSV 97 cm/s CV VAS LAB Left profunda sys PSV 58 cm/s CV VAS LAB Left super femoral dist sys PSV 106 cm/s CV VAS LAB Left super femoral mid sys PSV 121 cm/s CV VAS LAB Left super femoral prox sys PSV 114 cm/s CV VAS LAB Right Dist External Iliac PSV 124 cm/s CV VAS LAB Right Prox External Iliac PSV 107 cm/s CV VAS LAB Right AT dist sys PSV 54 cm/s CV VAS LAB Right AT mid sys PSV 58 cm/s CV VAS LAB Right AT prox sys PSV 59 cm/s CV VAS LAB Right SAWMILL PRODUCTION WORKER prox sys PSV 101 cm/s CV VAS LAB Right mid peroneal sys PSV 57 cm/s CV VAS LAB Right popliteal dist sys PSV 78 cm/s CV VAS LAB Right popliteal prox sys PSV 74 cm/s CV VAS LAB Right PT dist sys PSV 90 cm/s CV VAS LAB Right PT mid sys PSV 68 cm/s CV VAS LAB Right PT prox sys PSV 64 cm/s CV VAS LAB Right profunda sys PSV 61 cm/s CV VAS LAB Right super femoral dist sys PSV 90 cm/s CV VAS LAB Right super femoral mid sys PSV 138 cm/s CV VAS LAB Right super femoral prox sys PSV 84 cm/s CV VAS LAB Right arm BP 141 mmHg CV VAS LAB Left arm BP 150 mmHg CV VAS LAB Right posterior tibial 169 mmHg CV VAS LAB Right Dorsalis Pedis 183 mmHg CV VAS LAB Right JUD 1.22 CV VAS LAB Left posterior tibial 177 mmHg CV VAS LAB Left Dorsalis Pedis 177 mmHg CV VAS LAB Left JUD 1.18 CV VAS LAB Anatomical Region Laterality Modality Vascular, Abdomen Ultrasound Narrative 10/19/2024 3:25 PM EDT Right le. Normal ankle-brachial index (1.22). 2. There is evidence of moderate stenosis (20-49%) in the following arterial segments: External iliac artery, profunda femoral artery, superficial femoral artery Left le. Normal ankle-brachial index (1.18). 2. There is evidence of moderate stenosis (20-49%) in the following arterial segments: Common femoral artery Right Lower Arterial Duplex The proximal external iliac artery has biphasic flow. The distal external iliac artery has biphasic flow. The common femoral artery has triphasic flow. The profunda femoris artery has biphasic flow. The superficial femoral artery has biphasic flow. The popliteal artery has biphasic flow. The anterior tibial artery has biphasic flow. The posterior tibial artery has biphasic flow. The mid peroneal artery has biphasic flow. Left Lower Arterial Duplex The proximal external iliac artery has triphasic flow. The distal external iliac artery has triphasic flow. The common femoral artery has biphasic flow. The profunda femoris artery has biphasic flow. The superficial femoral artery has biphasic flow. The popliteal artery has biphasic flow. The anterior tibial artery has biphasic flow. The posterior tibial artery has biphasic flow. The mid peroneal artery has biphasic flow. Senior Accounting Associate Details A sarmiento scale, color and doppler analysis ultrasound was performed. During the study longitudinal views were obtained. Continuous wave doppler and pulsed wave doppler was performed. Overall the study quality was good. us Clinton Sierra DPM CV VASCULAR PROCEDURES Gayle padgett Result from Last 3 Months Insurance Care Teams Vacuum Evaporation Operator Relationship Specialty Start Date End Date Sylvia Peters MD [address] [place] [address] , [address] Physician Associ D/B/A: [facility] HERACLIO Hunt PCP - General Internal Medicine 07/09/24
--- OUTSIDE RECORDS SUMMARY | 2024-12-01 08:11 | XMS_ITS | Clinical Summary ---
Author Organization [facility] Facility Address [address] [place] [id number] Care Team Providers Care Radiology Technologist Name Role Phone Sylvia Denny MD Primary Care Provider [phone] Allergies No known active allergies Medications Acetaminophen [...] the evening. 06/25/2022 Active ergocalciferol 1.25 MG (41751 UT) capsule Take 50,000 Units by mouth 1 (one) time per week Active Active Problems Problem Noted Date Diagnosed Date Hypertension 08/19/2023 Dyslipidemia 08/19/2023 Diabetes mellitus, not otherwise specified 08/18 Atherosclerotic heart diseas e of [place] coronary artery without angina pectoris, not otherwise [...] Due Date Last Done Comments Pneumococcal Vaccine: 50+ Ye ars (1 of 2 - PCV) 1979 Colorectal Cancer Screening: Annual FOBT 2009 Colorectal Cancer Screening: Colonoscopy 2009 Colorectal Cancer Screening: Sigmoidoscopy 2009 Diabetes: Hemoglobin A1C 08/19/2023 Diabetes: Ophthalmology Exam 08/19/2023 Diabetes: Pedal Pulse Checked 08/19/2023 Diabetes: Sensory Foot Exam 08/19/2023 Diabetes: Visual Foot Exam 08/19/2023 Influenza Vaccine (Season Ended) 2025 Hepatitis B Vaccine Aged Out No longe r eligible based on patient's age to complete this topic Insurance Care Teams Radiology Technologist Relationship Specialty Start Date End Date Sylvia Denny MD [address] [place] [address] PCP - General Internal Medicine 05/29/22
[2024-12-01 08:12] VITALS: BP 120/70; PULSE 79; O2SAT 98; BMI 27.0
== END 2024-12-01 08:49 | disposition home or self-care (01) ==
LOC: HO.RHES 08:05
PROVIDERS: PCP Internal Medicine; Visit Provider Internal Medicine Rheumatology
DX: M06.9 Rheumatoid arthritis, unspecified (principal); Z79.899 Other long term (current) drug therapy
CPT/HCPCS: 99214; G2211

== ENCOUNTER → 2024-12-01 08:05 | Outpatient (BNVA) | payer OTHER, SELFPAY | PROVIDERS: PCP Internal Medicine; Visit Provider Internal Medicine Rheumatology | DX: M25.541 Pain in joints of right hand (principal); M25.542 Pain in joints of left hand; M06.9 Rheumatoid arthritis, unspecified; Z79.899 Other long term (current) drug therapy; M25.561 Pain in right knee; M25.562 Pain in left knee; M25.571 Pain in right ankle and joints of right foot; M25.572 Pain in left ankle and joints of left foot | CPT/HCPCS: 99212 ==

== ENCOUNTER 2024-12-25 07:40 | Outpatient (AMB) | payer OTHER, SELFPAY ==
--- OUTSIDE RECORDS SUMMARY | 2024-12-25 07:43 | XMS_ITS | Clinical Summary ---
Author Organization [facility] Facility Address [address] [place] [id number] Care Team Providers Care Night Time Nanny Name Role Phone Sylvia Denny MD Primary Care Provider [phone] Allergies No known active allergies Medications Acetaminophen [...] the evening. 06/25/2022 Active ergocalciferol 1.25 MG (28370 UT) capsule Take 50,000 Units by mouth 1 (one) time per week Active Active Problems Problem Noted Date Diagnosed Date Hypertension 08/19/2023 Dyslipidemia 08/19/2023 Diabetes mellitus, not otherwise specified 08/18 Atherosclerotic heart diseas e of [place] coronary artery without angina pectoris, not otherwise [...] Visual Foot Exam 08/19/2023 Influenza Vaccine (#1) 2025 Hepatitis B Vaccine Aged Out No longe r eligible based on patient's age to complete this topic Insurance Care Teams Night Time Nanny Relationship Specialty Start Date End Date Sylvia Denny MD [address] [place] [address] PCP - General Internal Medicine 05/29/22
--- OUTSIDE RECORDS SUMMARY | 2024-12-25 07:43 | XMS_ITS | Clinical Summary ---
Author Organization 175 [facility] Address [address] [place] [address] Phone Care Team Providers Care Learning Support Aide Name Role Phone Sylvia Peters MD Primary Care Provider [phone] Allergies No known active allergies Encounters Date Type Department Care Team Description 09/29/2024 7:00 AM EDT Ancillary Procedure [facility] [address] [place] [phone] Peripheral artery disease (CMS/HCC V24) from Last 3 Months Social History Tobacco [...] 09/15/2024 8:15 AM EDT Plan of Treatment Upcoming Encounters Date Type Department Care Team (Late st Contact Info) Description 02/08/2025 8:30 AM EDT Office Visit Orthopedic Surgery - [place] [address] 175 [facility] [address] [place] [phone] Clinton Sierra, DPJackelin 175 [facility] [address] [place] [address] Health Maintenance Due Date Last Done Comments Diabetes: Annual Foot Exam 1970 Diabetes: Annual Retina Eye Exam 1970 DTaP,Tdap,and Td Vaccines (1 - Tdap) 1979 Pneumococcal Vaccine: 50+ Ye ars (1 of 2 - PCV) 1979 Zoster Vaccines (1 of 2) 2010 RSV Immunization Adult Patie nts (1 - Risk 60-74 years 1-dose series) 2020 Cholesterol Screening (Lipid Panel) 05/13/2022 Colorectal Cancer Screening: Colonoscopy 05/13/2022 HIV Screening 05/13/2022 Hepatitis C Screening 05/13/2022 Social Influencers of Health Screening 05/13/2022 COVID-19 Vaccine (1 - 2023-2 5 season) 2024 Depression Screening 06/03/2024 Diabetes: Annual Urine Albumin-Creatinine Ratio (uACR) 09/15/2024 Diabetes: Blood Sugar Contro l Test (HGBA1C) 09/15/2024 Diabetes: Annual GFR (Glomer ular Filtration Rate) 09/22/2024 09/23/2023 Hypertension/CHF/CAD Annual BMP Blood Test 09/22/2024 09/23/2023 Influenza Vaccine (#1) 2025 HIB Vaccines Aged Out No longer [...] 09/29/2024 7:53 AM EDT Peripheral artery disease ([facility] V24) from Last 3 Months Results * [...] PSV 95 cm/s CV VAS LAB Left ABSTRACT SEARCHER prox sys PSV 89 cm/s CV VAS [...] PSV 59 cm/s CV VAS LAB Right ABSTRACT SEARCHER prox sys PSV 101 cm/s CV VAS [...] The mid peroneal artery has biphasic flow. Project Eng Details A sarmiento scale, color and doppler analysis ultrasound was performed. During the study longitudinal views were obtained. Continuous wave doppler and pulsed wave doppler was performed. Overall the study quality was good. us Clinton Sierra DPM CV VASCULAR PROCEDURES Gayle padgett Result from Last [address] [place] [address] [address] [place] [address] [address] Care Teams Learning Support Aide Relationship Specialty Start Date End Date Sylvia Peters MD [address] [place] [address] , [address] [facility]ician [facility] D/B/A: [facility] HERACLIO Hunt PCP - General Internal Medicine 07/09/24
[2024-12-25 07:45] VITALS: BP 110/62; PULSE 83; O2SAT 98; BMI 26.4
--- NOTE | 2024-12-25 07:45 | A.OFFVIS_ITS ---
Vital Signs 12/25/24 07:45 Height 5 ft 5 in Weight 158 lb 11.725 oz BMI 26.4 BP 110/62 Blood Pressure Location Lt brachial Position Sitting Pulse 83 Pulse Source Pulse Oximeter Pulse Oximetry (%) 98 Oxygen Delivery Method Room Air Intake Visit Reasons: T2DM Intake Note: Patient present today for Type 2 Diabetes Mellitus Last Diabetic eye exam: 07/2024 Last Podiatry Visit: 09/2024 Random Glucose: 255 mg/dl HgA1C: 7.3% Human Resources Executive Required: Yes Human Resources Executive Language: Experimental Rocketsled Mechanic Services: Human Resources Executive Present Human Resources Executive Name: Minna [id number] Information Interpreted: non-clinical & clinical Accompanied by: Self / Same As Patient Allergies No Known Allergies Allergy (Verified 12/25/24 07:50) Medication List - Last Reconciled 12/25/24 by Ann-Marie Reza PA-C acetaminophen 500 mg PO Q6H PRN 30 days amlodipine 5 mg PO DAILY 90 days aspirin 81 mg PO DAILY atorvastatin 80 mg PO BEDTIME 90 days baclofen 5 mg PO BEDTIME 90 days blood sugar diagnostic (FreeStyle Lite Strips) Use daily As directed to check blood glucose blood-glucose meter (FreeStyle Lite Meter kit) Use daily As directed to check blood sugars cane As directed carvedilol 12.5 mg PO BID 90 days cholecalciferol (vitamin D3) 25 mcg PO DAILY 90 days dulaglutide (Trulicity) 1.5 mg (0.5 mL) subcut QWEEK empagliflozin (Jardiance) 25 mg PO DAILY 90 days fluocinolone acetonide oil 0.01% (DermOtic Oil) 5 drps otic (ears) BID 7 days fluoxetine 10 mg PO DAILY 90 days folic acid 1 mg PO DAILY glucose (Dex4 Glucose) 16 grams (4 x 4 gram) PO Q15M PRN lancets (FreeStyle Lancets) use daily as directed to check blood glucose meloxicam 15 mg PO DAILY 90 days metformin 1,000 mg PO BID 90 days methotrexate sodium 12.5 mg (5 x 2.5 mg) PO QWEEK 12 weeks pioglitazone 45 mg PO DAILY 90 days trazodone 50 mg PO BEDTIME PRN 90 days HPI HPI T2DM: Details: Patient is a 63-year-old male with a significant past medical history of rheumatoid arthritis, dish, depression, CAD, hypertension, hyperlipidemia and type 2 diabetes presenting today for initial consult regarding diabetes. Human Resources Executive Minna #[id number] Endo: Dm-his most recent A1c is 7.3 (previously 8.5). He states that he was diagnosed around 2014. He is currently on metformin 1000 mg twice a day, pioglitazone 45 mg daily, Jardiance 25 mg daily and trulicity 3 mg weekly. -His pcp increased the dose to 3 mg weekly. He states that it is making him feel nauseous. He states that he can not tolerate this medication or take it. He monitors his blood sugars only once a week because he does not like sticking his fingers. He states it is painful and he does not like needles. He states when he checks his blood sugars are around 150-200 (not fasting). He has an appointment with our nutrition educator next week. Denies hypoglycemic events. Correct low blood sugars with candy, soda, or juice He does have microalbuminuria. He has a fam hx of t1dm and t2dm. He has never seen an local superintendent before. His sister is an local superintendent in [place] and encouraged him to be seen. He has never had formal diabetic education and thinks this would be helpful. CV: Blood pressure today in the office is 110/62. He is currently on carvedilol 12.5 mg weekly, amlodipine 5 mg daily. Not on an DEB inhibitor. He is on atorvastatin 80 mg for cholesterol control. His LDL goal is less than 70. He is well-controlled. LFTs WNL. [facility] Medical History Skin lesion DISH (diffuse idiopathic skeletal hyperostosis) Mild major depression, single episode Hypovitaminosis D Thoracic spine pain Lumbar pain Right knee pain Left knee pain Neck pain Polyarthralgia Fatigue Pure hypercholesterolemia with target low density lipoprotein (LDL) cholesterol less than 70 mg/dL Insomnia CAD (coronary artery disease) Essential hypertension Surgical History S/P colonoscopic polypectomy S/P CABG x 3 Family History Father Diabetes Hypertension CVD (cardiovascular disease) COPD (chronic obstructive pulmonary disease) Mother Diabetes Hypertension CVD (cardiovascular disease) Cancer Family/Other Mental health disorder Sister Breast cancer Social History Housing: Apartment Alcohol intake: current Alcohol intake frequency: a few times a month Alcohol type: beer Patient Tobacco Use Status: Never used Tobacco e-Cigarette/Vaping Use: Never Used Second Hand Smoke Exposure: No service: No Current occupational status: disabled Cognitive needs: No Hearing needs: No Vision needs: Yes Physical Exam Vital Signs: Last Vital Signs Pulse 83 12/25/24 07:45 BP 110/62 12/25/24 07:45 Pulse Ox 98 12/25/24 07:45 Oxygen Delivery Method Room Air 12/25/24 07:45 BMI result Body Mass Index 26.4 Const Orientation/consciousness: patient oriented x3 HEENT Ears: hearing grossly normal bilaterally Neck Thyroid: Thyroid normal Lymphatic: no lymphadenopathy noted Resp Auscultation: clear to auscultation bilaterally Cardio Rate: regular rate Rhythm: regular rhythm Heart sounds: S1 normal heart sound present and S2 normal heart sound present Skin General skin exam: no rashes or lesions noted Neuro General: patient oriented x3, gait normal and no focal motor deficits Results AMB Hemoglobin A1c AMB Hemoglobin A1c 7.3 % Last Edit by SILVIO Kapadia on 12/25/24 08:03 Results Reviewed Results Reviewed: Laboratory Last Values Glucose (Clinic) 255 mg/dL (60-115) H 12/25/24 07:53 Hgb A1c (Clinic) 7.3 % (4.0-6.0) H 12/25/24 07:56 Laboratory Tests 06/18/24 07/24/24 10/30/24 08:08 08:41 06:55 Creatinine 0.95 Estimated GFR > 60 Glucose (Clinic) 151 H Fasting Glucose 136 H Hgb A1c (Clinic) 8.6 H AST 28 ALT 29 Triglycerides 58 Cholesterol 95 LDL Cholesterol, Calc 38 HDL Cholesterol 46 Urine Creatinine 134.90 Urine Microalbumin 33.0 Microalb/Creat Ratio 24.4 12/25/24 07:56 Creatinine Estimated GFR Glucose (Clinic) Fasting Glucose Hgb A1c (Clinic) 7.3 H AST ALT Triglycerides Cholesterol LDL Cholesterol, Calc HDL Cholesterol Urine Creatinine Urine Microalbumin Microalb/Creat Ratio Assessment & Plan Assessment & Plan (1) Uncontrolled type 2 diabetes mellitus with hyperglycemia: Code(s): E11.65 - Type 2 diabetes mellitus with hyperglycemia Category: Medical Plan: We will stop Trulicity given side effects of nausea and upset stomach and switch to Ozempic. He will let me know if he develops any adverse effects. I will have him return for a short term follow up. He is willing to monitor his diet closely. A sensor was provided today in the office He will continue the pioglitazone, metformin and Jardiance (2) Essential hypertension: Code(s): I10 - Essential (primary) hypertension Category: Medical Plan: wnl continue current regimen (3) Pure hypercholesterolemia with target low density lipoprotein (LDL) cholesterol less than 70 mg/dL: Code(s): E78.00 - Pure hypercholesterolemia, unspecified Category: Medical Plan: LDL at goal Orders: Orders AMB Hemoglobin A1c Today E11.65 - Type 2 diabetes mellitus with hyperglycemia, Z13.9 - Encounter for screening, unspecified Medications: New semaglutide (Ozempic) for 4 weeks; then increase to 0.5 mg every week 0.25 mg (0.368 mL) subcut QWEEK 3 mL 3RF Discontinued dulaglutide (Trulicity) Discontinued Reason: Doctor's Order 1.5 mg (0.5 mL) subcut QWEEK 2 mL 2RF Coding Level of Care Code Est Pt Level 4 (86216) Complex EM visit Add On G2211 Diagnoses Uncontrolled type 2 diabetes mellitus with hyperglycemia E11.65 Essential hypertension I10 Pure hypercholesterolemia with target low density lipoprotein (LDL) cholesterol less than 70 mg/dL E78.00
[2024-12-25 07:57] LABS: Glucose, Whole Blood 255 mg/dL (60-115)
== END 2024-12-25 08:33 | disposition home or self-care (01) ==
LOC: HO.ENCR 07:41
PROVIDERS: PCP Internal Medicine; Visit Provider Physician Assistant
DX: E11.65 Type 2 diabetes mellitus with hyperglycemia (principal); I10 Essential (primary) hypertension; E78.00 Pure hypercholesterolemia, unspecified; Z13.9 Encounter for screening, unspecified

== ENCOUNTER → 2024-12-25 07:40 | Outpatient (BNVA) | payer OTHER, SELFPAY | PROVIDERS: PCP Internal Medicine; Visit Provider Physician Assistant | DX: E11.65 Type 2 diabetes mellitus with hyperglycemia (principal); I10 Essential (primary) hypertension; E78.00 Pure hypercholesterolemia, unspecified; Z79.84 Long term (current) use of oral hypoglycemic drugs; Z79.899 Other long term (current) drug therapy | CPT/HCPCS: 82947; 83036; 99212 ==

== ENCOUNTER 2025-01-26 07:46 | Outpatient (AMB) | payer OTHER, SELFPAY ==
--- NOTE | 2025-01-26 08:18 | A.OFFPC_ITS ---
Vital Signs 01/26/25 08:19 Height 5 ft 5 in Weight 153 lb 4 oz BMI 25.5 BP 110/60 Blood Pressure Location Lt brachial Position Sitting Pulse 75 Pulse Source Pulse Oximeter Temp 97.3 F Temp Source Temporal Artery Scan Pulse Oximetry (%) 97 Oxygen Delivery Method Room Air Intake Visit Reasons: Annual Exam Intake Note: Patient is here today for a physical. Senior Merchandiser Required: No Business Account Executive: Not Required per policy Accompanied by: Self / Same As Patient Allergies No Known Allergies Allergy (Verified 01/26/25 08:42) Medication List - Last Reconciled 01/26/25 by Sylvia Peters MD acetaminophen 500 mg PO Q6H PRN 30 days amlodipine 5 mg PO DAILY 90 days aspirin 81 mg PO DAILY atorvastatin 80 mg PO BEDTIME 90 days baclofen 5 mg PO BEDTIME 90 days blood sugar diagnostic (FreeStyle Lite Strips) Use daily As directed to check blood glucose blood-glucose meter (FreeStyle Lite Meter kit) Use daily As directed to check blood sugars cane As directed carvedilol 12.5 mg PO BID 90 days cholecalciferol (vitamin D3) 25 mcg PO DAILY 90 days empagliflozin (Jardiance) 25 mg PO DAILY 90 days fluocinolone acetonide oil 0.01% (DermOtic Oil) 5 drps otic (ears) BID 7 days fluoxetine 10 mg PO DAILY 90 days folic acid 1 mg PO DAILY glucose (Dex4 Glucose) 16 grams (4 x 4 gram) PO Q15M PRN lancets (FreeStyle Lancets) use daily as directed to check blood glucose meloxicam 15 mg PO DAILY 90 days metformin 1,000 mg PO BID 90 days methotrexate sodium 12.5 mg (5 x 2.5 mg) PO QWEEK 12 weeks pioglitazone 45 mg PO DAILY 90 days semaglutide (Ozempic) 0.25 mg (0.368 mL) subcut QWEEK trazodone 50 mg PO BEDTIME PRN 90 days Tobacco use date assessed: 01/26/25 Fall risk assessment: No Falls in past year Last assessed Fall Risk: 01/26/25 Dental Screening Dental Screen Date: 06/18/24 HPI HPI Comments History of Present Illness Details The patient is a 64-year-old male presenting for a physical examination and preventative care. He has a history of hypertension and hyperlipidemia, with satisfactory LDL levels noted in October. His type 2 diabetes mellitus is managed with Jardiance and pioglitazone, though he has difficulty with Ozempic administration. The patient also has depression and chronic arthritis, with a significant surgical history of CABG in 2017. He complains of dry skin in elbows. Family history reveals cardiovascular disease, diabetes, and cancer, with his father having COPD and his mother and sister having had cancer. - Tetanus vaccination discussed, last re ceived in 2011, due for update but patient declines it today. - Colonoscopy screening discussed, last performed less than 10 years ago with normal results [facility] Medical History (Updated 01/26/25 @ 08:55 by Sylvia Peters MD) Skin lesion DISH (diffuse idiopathic skeletal hyperostosis) Mild major depression, single episode Hypovitaminosis D Thoracic spine pain Lumbar pain Right knee pain Left knee pain Neck pain Polyarthralgia Fatigue Pure hypercholesterolemia with target low density lipoprotein (LDL) cholesterol less than 70 mg/dL Insomnia CAD (coronary artery disease) Essential hypertension Surgical History S/P colonoscopic polypectomy S/P CABG x 3 Family History Father Diabetes Hypertension CVD (cardiovascular disease) COPD (chronic obstructive pulmonary disease) Mother Diabetes Hypertension CVD (cardiovascular disease) Cancer Family/Other Mental health disorder Sister Breast cancer Social History Housing: Apartment Alcohol intake: current Alcohol intake frequency: a few times a month Alcohol type: beer Patient Tobacco Use Status: Never used Tobacco e-Cigarette/Vaping Use: Never Used Second Hand Smoke Exposure: No service: No Current occupational status: disabled Cognitive needs: No Hearing needs: No Vision needs: Yes Questionnaire Thrive Questionnaire Date Thrive assessed: 06/18/24 CHANTE-7 AMB Questionnaire CHANTE-7 Date CHANTE - 7 assessed: 06/18/24 Source: Developed by Drs. David Murillo, Mahi Kunz, Baldomero Magana and colleagues, with an educational tammy from [employer]. Review of Systems Const All systems reviewed & are unremarkable except as noted in HPI and below Card Denies chest pain at rest, Denies chest pain with activity, Denies edema, Denies irregular heart rhythm, Denies claudication, Denies dyspnea, Denies dyspnea on exertion, Denies orthopnea, Denies paroxysmal nocturnal dyspnea and Denies slow heart rate Resp Denies cough, Denies dyspnea and Denies dyspnea on exertion Physical exam (Primary Care) Vital Signs: Last Vital Signs Temp 97.3 F 01/26/25 08:19 Pulse 75 01/26/25 08:19 BP 110/60 01/26/25 08:19 Pulse Ox 97 01/26/25 08:19 Oxygen Delivery Method Room Air 01/26/25 08:19 BMI result Body Mass Index 25.5 Tobacco/Smoking Status: Tobacco use Status Tobacco use date assessed 01/26/25 01/26/25 08:21 Patient Tobacco Use Status Never used Tobacco 01/26/25 08:21 e-Cigarette/Vaping Use Never Used 01/26/25 08:21 Thrive Assessment: Date of Thrive Assessment Date Thrive assessed 06/18/24 01/26/25 08:21 HENMT Head: Yes normal to inspection, Yes normocephalic and Yes atraumatic Ears: external ears normal Eyes General: appearance normal, both eyes and all related structures Eyelids: Yes eyelids normal Conjunctivae: conjunctivae normal Neck Neck: Yes normal visual inspection and Yes supple Resp Effort & Inspection: normal respiratory effort Auscultation: clear to auscultation bilaterally Cardio Jugular venous distension: no JVD Rate: regular rate Rhythm: regular rhythm Heart sounds: S1 normal heart sound present and S2 normal heart sound present GI Inspection: Yes normal to inspection Palpation (GI): Soft to palpation and nontender Auscultation: normal bowel sounds Skin General skin exam: no rashes or lesions noted Neuro General: no focal motor deficits Extrem General: Yes full ROM Psych Appearance: grossly normal Coding Level of Care Code Est Pt Level 3 (79833) Est Pt Prev Care 40-64y(50388) Diagnoses Physical exam Z00.00 Seronegative rheumatoid arthritis M06.00 Mild major depression, single episode F32.0 Uncontrolled type 2 diabetes mellitus with hyperglycemia E11.65 Scaly skin R23.4 Time Spent (min) 32 Assessment & Plan Assessment & Plan (1) Physical exam: Code(s): Z00.00 - Encounter for general adult medical examination without abnormal findings Category: Medical (2) Seronegative rheumatoid arthritis: Code(s): M06.00 - Rheumatoid arthritis without rheumatoid factor, unspecified site Category: Medical (3) Mild major depression, single episode: Code(s): F32.0 - Major depressive disorder, single episode, mild Category: Medical (4) Uncontrolled type 2 diabetes mellitus with hyperglycemia: Code(s): E11.65 - Type 2 diabetes mellitus with hyperglycemia Category: Medical (5) Scaly skin: Code(s): R23.4 - Changes in skin texture Category: Medical Plan Plan Patient was informed and verbally consented to the use of an ambient scribe for clinic note documentation during this visit. 1. Essential (primary) hypertension I10 The patient's hypertension is managed with amlodipine and carvedilol. 2. Hyperlipidemia, unspecified E78.5 Hyperlipidemia is managed with atorvastatin, with satisfactory LDL levels noted in October. 3. Type 2 diabetes mellitus without complications E11.9 HCC 19 The patient is on Jardiance and pioglitazone for diabetes management, with difficulties noted in administering Ozempic. 4. Depression, unspecified F32.A Depression is managed with fluoxetine. 5. Rheumatoid arthritis without rheumatoid factor, unspecified site M06.00 HCC 40 The patient reports chronic arthritis, which is being monitored. 6. Presence of aortocoronary bypass graft Z95.1 The patient underwent CABG in 2017, with ongoing monitoring of cardiovascular health. 7. Encounter for general adult medical examination without abnormal findings Z00.00
[2025-01-26 08:19] VITALS: BP 110/60; PULSE 75; TEMP 36.3; O2SAT 97; BMI 25.5
== END 2025-01-26 08:54 | disposition home or self-care (01) ==
LOC: HO.HMCH 07:46
PROVIDERS: PCP Internal Medicine; Visit Provider Internal Medicine
DX: Z00.00 Encounter for general adult medical examination without abnormal findings (principal); M06.00 Rheumatoid arthritis without rheumatoid factor, unspecified site; E11.65 Type 2 diabetes mellitus with hyperglycemia; F32.0 Major depressive disorder, single episode, mild; R23.4 Changes in skin texture

== ENCOUNTER → 2025-01-26 07:46 | Outpatient (BNVA) | payer OTHER, SELFPAY | PROVIDERS: PCP Internal Medicine; Visit Provider Internal Medicine | DX: Z00.00 Encounter for general adult medical examination without abnormal findings (principal); I10 Essential (primary) hypertension; E78.5 Hyperlipidemia, unspecified; E11.9 Type 2 diabetes mellitus without complications; F32.A Depression, unspecified; M06.00 Rheumatoid arthritis without rheumatoid factor, unspecified site; F32.0 Major depressive disorder, single episode, mild; E11.65 Type 2 diabetes mellitus with hyperglycemia; R23.4 Changes in skin texture; Z95.1 Presence of aortocoronary bypass graft | CPT/HCPCS: 99396 ==

== ENCOUNTER 2025-02-05 07:34 | Outpatient (AMB) | payer OTHER, SELFPAY ==
--- OUTSIDE RECORDS SUMMARY | 2025-02-05 07:38 | XMS_ITS | Clinical Summary ---
Author Organization 175 [facility] Address 175 [place] [address] Phone Care Team Providers Care Hotshot Superintendent Name Role Phone Sylvia Peters MD Primary Care Provider [phone] Allergies No known active allergies Social History Tobacco Use Types Packs/Day Years [...] AM EDT Office Visit Orthopedic Surgery - [place] [address] [address] Clinton Sierra, [place] [address] [address] Health Maintenance Due Date Last Done Comments [...] 05/13/2022 Social Influencers of Health Screening 05/13/2022 Depression Screening 06/03/2024 Diabetes: Annual Urine Albumin-Creatinine Ratio (uACR) 09/15/2024 Diabetes: Blood Sugar Contro l Test (HGBA1C) 09/15/2024 Diabetes: Annual GFR (Glomer ular Filtration Rate) 09/22/2024 09/23/2023 Hypertension/CHF/CAD Annual BMP Blood Test 09/22/2024 09/23/2023 COVID-19 Vaccine (2023-2 5 season) 2025 Influenza Vaccine (#1) 2025 HIB Vaccines Aged [...] patient's age to complete this topic Insurance [place] [address] HEALTH PLAN [facility] PLAN Care Teams Hotshot Superintendent Relationship Specialty Start Date End Date Sylvia Peters MD [address] [place] [address] , [facility] [address] [facility] D/B[facility]A: [facility] HERACLIO Hunt PCP - General Internal Medicine 07/09/24
--- OUTSIDE RECORDS SUMMARY | 2025-02-05 07:38 | XMS_ITS | Clinical Summary ---
Author Organization [facility] Address [address] [place] [id number] Care Team Providers Care Quality Assurance Clerk Name Role Phone Sylvia Denny MD Primary Care Provider Allergies No known active allergies Medications Acetaminophen [...] the evening. 06/25/2022 Active ergocalciferol 1.25 MG (59262 UT) capsule Take 50,000 Units by mouth 1 (one) time per week Active Active Problems Problem Noted Date Diagnosed Date Hypertension 08/19/2023 Dyslipidemia 08/19/2023 Diabetes mellitus, not otherwise specified 08/18 Atherosclerotic heart diseas e of [place] coronary artery without angina pectoris, not otherwise [...] to complete this topic Insurance Care Teams Quality Assurance Clerk Relationship Specialty Start Date End Date Sylvia Denny MD [address] [place] [address] PCP - General Internal Medicine 05/29/22
[2025-02-05 07:54] VITALS: BP 140/70; PULSE 76; O2SAT 97; BMI 26.2
--- NOTE | 2025-02-05 07:54 | MHC.OFFVIS ---
Vital Signs 02/05/25 07:54 Height 5 ft 5 in Weight 157 lb 3.033 oz BMI 26.2 BP 140/70 H Blood Pressure Location Lt brachial Position Sitting Pulse 76 Pulse Source Pulse Oximeter Pulse Oximetry (%) 97 Oxygen Delivery Method Room Air Intake Visit Reasons: T2DM Intake Note: Patient present today for Type 2 Diabetes Mellitus Last Diabetic eye exam: 10/2024 Last Podiatry Visit: Has upcoming appt next week Random Glucose: 155 mg/dl HgA1C: 7.3% 12/25/24 Down Filler Required: Yes Down Filler Language: Creative Strategist Services: Down Filler Present Down Filler Name: Marcy [id number] Information Interpreted: non-clinical & clinical Accompanied by: Self / Same As Patient Allergies No Known Allergies Allergy (Verified 02/05/25 07:59) HPI HPI T2DM: Details: Patient is a 63-year-old male with a significant past medical history of rheumatoid arthritis, dish, depression, CAD, hypertension, hyperlipidemia and type 2 diabetes presenting today for initial consult regarding diabetes. Down Filler initially Marcy Willams Endo: Dm-his most recent A1c is 7.3 (previously 8.5). He states that he was diagnosed around 2014. He is currently on metformin 1000 mg twice a day, pioglitazone 45 mg daily, Jardiance 25 mg daily and was recently started on Ozempic 0.25 mg weekly. -Trulicity cause nausea and vomiting. He monitors his blood sugars only once a week because he does not like sticking his fingers. He states it is painful and he does not like needles. He states when he checks his blood sugars are around 150-200 (not fasting). He does request a CGM so he can monitor his blood sugars. He understands that it is not covered by insurance and that he would only be provided a sample. Denies hypoglycemic events. Correct low blood sugars with candy, soda, or juice He does have microalbuminuria. He has a fam hx of t1dm and t2dm. CV: Blood pressure today in the office is 140/70. He is currently on carvedilol 12.5 mg weekly, amlodipine 5 mg daily. Not on an DEB inhibitor. He is on atorvastatin 80 mg for cholesterol control. His LDL goal is less than 70. He is well-controlled. LFTs WNL. PFSH Medical History Skin lesion DISH (diffuse idiopathic skeletal hyperostosis) Mild major depression, single episode Hypovitaminosis D Thoracic spine pain Lumbar pain Right knee pain Left knee pain Neck pain Polyarthralgia Fatigue Pure hypercholesterolemia with target low density lipoprotein (LDL) cholesterol less than 70 mg/dL Insomnia CAD (coronary artery disease) Essential hypertension Surgical History S/P colonoscopic polypectomy S/P CABG x 3 Family History Father Diabetes Hypertension CVD (cardiovascular disease) COPD (chronic obstructive pulmonary disease) Mother Diabetes Hypertension CVD (cardiovascular disease) Cancer Family/Other Mental health disorder Sister Breast cancer Social History Housing: Apartment Alcohol intake: current Alcohol intake frequency: a few times a month Alcohol type: beer Patient Tobacco Use Status: Never used Tobacco e-Cigarette/Vaping Use: Never Used Second Hand Smoke Exposure: No service: No Current occupational status: disabled Cognitive needs: No Hearing needs: No Vision needs: Yes Physical Exam Vital Signs: Last Vital Signs Pulse 76 02/05/25 07:54 BP 140/70 H 02/05/25 07:54 Pulse Ox 97 02/05/25 07:54 Oxygen Delivery Method Room Air 02/05/25 07:54 BMI result Body Mass Index 26.2 Const Orientation/consciousness: patient oriented x3 Neck Neck: Yes no lymphadenopathy Thyroid: Thyroid normal Carotids: no bruits Resp Auscultation: clear to auscultation bilaterally Cardio Rate: regular rate Rhythm: regular rhythm Heart sounds: S1 normal heart sound present and S2 normal heart sound present Peripheral pulses: dorsalis pedis present Neuro General: patient oriented x3, gait normal and no focal motor deficits Extrem Other: Monofilament sensation intact bilaterally. Vibratory sensation intact bilaterally. Skin intact. General: Yes normal to inspection Results Reviewed Results Reviewed: Laboratory Last Values Glucose (Clinic) 155 mg/dL (60-115) H 02/05/25 08:01 Laboratory Tests 10/30/24 12/25/24 02/05/25 06:55 07:56 08:01 Creatinine 0.95 Estimated GFR > 60 Glucose (Clinic) 155 H Hgb A1c (Clinic) 7.3 H Triglycerides 58 Cholesterol 95 LDL Cholesterol, Calc 38 HDL Cholesterol 46 Urine Creatinine 134.90 Urine Microalbumin 33.0 Microalb/Creat Ratio 24.4 Assessment & Plan Assessment & Plan (1) Uncontrolled type 2 diabetes mellitus with hyperglycemia: Code(s): E11.65 - Type 2 diabetes mellitus with hyperglycemia Category: Medical Plan: Explained how to use Ozempic today. He did bring in his pen so I showed him how to apply the pen needle, adjust the dial and do the injection. He did the 1st injection with supervision and assistance. The skin was prepped appropriately. Feels comfortable with this. We will do a short term follow up to see how he feels. He will continue with his diabetic regimen as directed (2) Essential hypertension: Code(s): I10 - Essential (primary) hypertension Category: Medical Plan: Continue current regimen (3) Pure hypercholesterolemia with target low density lipoprotein (LDL) cholesterol less than 70 mg/dL: Code(s): E78.00 - Pure hypercholesterolemia, unspecified Category: Medical Plan: At goal. Continue current regimen Coding Level of Care Code Est Pt Level 4 (69413) Complex EM visit Add On G2211 Diagnoses Uncontrolled type 2 diabetes mellitus with hyperglycemia E11.65 Essential hypertension I10 Pure hypercholesterolemia with target low density lipoprotein (LDL) cholesterol less than 70 mg/dL E78.00
[2025-02-05 08:06] LABS: Glucose, Whole Blood 155 mg/dL (60-115)
== END 2025-02-05 08:30 | disposition home or self-care (01) ==
LOC: HO.ENCR 07:35
PROVIDERS: PCP Internal Medicine; Visit Provider Physician Assistant
DX: E11.65 Type 2 diabetes mellitus with hyperglycemia (principal); I10 Essential (primary) hypertension; E78.00 Pure hypercholesterolemia, unspecified

== ENCOUNTER → 2025-02-05 07:34 | Outpatient (BNVA) | payer OTHER, SELFPAY | PROVIDERS: PCP Internal Medicine; Visit Provider Physician Assistant | DX: E11.65 Type 2 diabetes mellitus with hyperglycemia (principal); I10 Essential (primary) hypertension; E78.00 Pure hypercholesterolemia, unspecified; Z79.899 Other long term (current) drug therapy | CPT/HCPCS: 82947; 99212 ==

== ENCOUNTER 2025-02-24 10:05 | Outpatient (REF) | payer OTHER, SELFPAY ==
--- OUTSIDE RECORDS SUMMARY | 2025-02-24 12:20 | XMS_ITS | Clinical Summary ---
Author Organization [address] [facility] Address [address] [place] [address] Phone Care Team Providers Care Software Quality Assurance Analyst Name Role Phone Sylvia Peters MD Primary Care Provider [phone] Allergies No known active allergies Encounters Date Type Department Care Team Description 02/08/2025 8:30 AM EDT Office Visit Orthopedic Surgery [facility] [address] [facility] [address] [place] [id number] [place], [place] Controlled type 2 diabetes mellitus with diabetic polyneuropathy, without long-term current use of insulin (CMS/HCC V24, CMS/HCC V28) (Primary Dx); Hammer toes, bilateral; Peripheral artery disease (CMS/HCC V24); Ingrown left big toenail; Onychomycosis from Last 3 Months Social History [...] to complete this topic Insurance Care Teams Software Quality Assurance Analyst Relationship Specialty Start Date End Date Sylvia Peters MD [address] [place] [address] , [address] [facility] D/B/A: [facility] HERACLIO Hunt PCP - General Internal Medicine 07/09/24
--- OUTSIDE RECORDS SUMMARY | 2025-02-24 12:20 | XMS_ITS | Clinical Summary ---
Author Organization [facility] Facility Address [address] [place] [address] Care Team Providers Care Probate Clerk Name Role Phone Syliva Denny MD Primary Care Provider Allergies No [...] the evening. 06/25/2022 Active ergocalciferol 1.25 MG (71598 UT) capsule Take 50,000 Units by mouth 1 (one) time per week Active Active Problems Problem Noted Date Diagnosed Date Hypertension 08/19/2023 Dyslipidemia 08/19/2023 Diabetes mellitus, not otherwise specified 08/18 Atherosclerotic heart diseas e of [place] coronary artery without angina pectoris, not otherwise [...] to complete this topic Insurance Care Teams Probate Clerk Relationship Specialty Start Date End Date Sylvia Denny MD [address] [place] [address] PCP - General Internal Medicine 05/29/22
[2025-02-25 11:22] LABS: NRBC Abs Auto 0.000 X10*3/uL (0.0-0.012); NRBC Pct Auto 0.0 /100WBC (0.0-0.2); PLT CLUMP 1; SCAN SMEAR FLAG 1
[2025-02-25 11:24] LABS: Hematocrit 44.2 % (42.0-52.0); Hemoglobin 15.6 g/dl (14.0-18.0); Imm Gran Abs Auto 0.03 X10*3/uL (0.00-0.03); Imm Gran Pct Auto 0.4 % (0.0-0.4); Lymphocytes Absolute Auto 2.0 X10*3/uL (1.2-4.9); MANUAL DIFF FLAG SCAN; Mean Corpuscular HGB Conc 35.3 g/dl (31.0-36.0); Mean Corpuscular Hemoglobin 32.2 pg (27.0-33.0); Mean Corpuscular Volume 91.1 fL (80.0-98.0); Red Blood Count 4.85 X10*6/uL (4.60-5.80)
[2025-02-25 11:26] LABS: Alanine Aminotransferase 17 U/L (0-40); Aspartate Amino Transferase 25 U/L (5-37); Estimated Glomerular Filt Rate > 60
[2025-02-25 11:52] LABS: Platelet Count 261 X10*3/uL (160-400); White Blood Count 6.9 X10*3/uL (4.8-10.8)
== END 2025-02-24 10:06 | disposition home or self-care (01) ==
LOC: HO.HKASLDS 10:05
PROVIDERS: Visit Provider Internal Medicine Rheumatology
DX: M06.9 Rheumatoid arthritis, unspecified (principal); D64.9 Anemia, unspecified; Z79.60 Long term (current) use of unspecified immunomodulators and immunosuppressants
CPT/HCPCS: 36415; 82565; 84450; 84460; 85025; 85652; 86140

== ENCOUNTER 2025-03-04 07:40 | Outpatient (AMB) | payer OTHER, SELFPAY ==
--- OUTSIDE RECORDS SUMMARY | 2025-03-04 07:44 | XMS_ITS | Clinical Summary ---
Author Organization [address] [facility] Address [address] [place] [address] Phone Care Team Providers Care Exceptional Needs Teacher Name Role Phone Sylvia Peters MD Primary Care Provider [phone] Allergies No known active allergies Encounters Date Type Department Care Team Description 02/08/2025 8:30 AM EDT Office Visit Orthopedic Surgery [facility] [address] [facility] [address] [place] [id number] [place], [place] Controlled type 2 [...] Health Maintenance Due Date Last Done Comments Colorectal Cancer Screening: Colonoscopy 1960 Diabetes: Annual Foot Exam 1970 Diabetes: Annual Retina Eye Exam 1970 DTaP,Tdap,and Td Vaccines (1 - Tdap) 1979 Pneumococcal Vaccine: 50+ Ye ars (1 of 2 - PCV) 1979 Zoster Vaccines (1 of 2) 2010 RSV Immunization Adult Patie nts (1 - Risk 60-74 years 1-dose series) 2020 Cholesterol Screening (Lipid Panel) 05/13/2022 HIV Screening 05/13/2022 Hepatitis C Screening [...] to complete this topic Insurance Care Teams Exceptional Needs Teacher Relationship Specialty Start Date End Date Sylvia Peters MD [address] [place] [address] , [address] [facility] D/B/A: [facility] HERACLIO Hunt PCP - General Internal Medicine 07/09/24
--- OUTSIDE RECORDS SUMMARY | 2025-03-04 07:44 | XMS_ITS | Clinical Summary ---
Author Organization [facility] Facility Address [address] [place] [id number] Care Team Providers Care Hand Tennis Ball Coverer Name Role Phone Sylvia Denny MD Primary Care Provider [phone] Allergies No known active allergies Medications Acetaminophen [...] the evening. 06/25/2022 Active ergocalciferol 1.25 MG (62384 UT) capsule Take 50,000 Units by mouth 1 (one) time per week Active Active Problems Problem Noted Date Diagnosed Date Hypertension 08/19/2023 Dyslipidemia 08/19/2023 Diabetes mellitus, not otherwise specified 08/18 Atherosclerotic heart diseas e of [place] coronary artery without angina pectoris, not otherwise [...] to complete this topic Insurance Care Teams Hand Tennis Ball Coverer Relationship Specialty Start Date End Date Sylvia Denny MD [address] [place] [address] PCP - General Internal Medicine 05/29/22
[2025-03-04 08:19] VITALS: BP 110/80; PULSE 78; O2SAT 100; BMI 25.4
--- NOTE | 2025-03-04 08:19 | A.OFFVIS_ITS ---
Vital Signs 03/04/25 08:19 Height 5 ft 5 in Weight 152 lb 12.485 oz BMI 25.4 BP 110/80 Blood Pressure Location Rt brachial Position Sitting Pulse 78 Pulse Source Pulse Oximeter Pulse Oximetry (%) 100 Oxygen Delivery Method Room Air Intake Visit Reasons: 3 Months Intake Note: Patient presents for follow up on RA today. Athletic Equipment Manager Name: [id number] sandra Accompanied by: Self / Same As Patient Allergies No Known Allergies Allergy (Verified 03/04/25 08:21) HPI HPI 3 Months: Details: Romanian-speaking patient. Video glazing department supervisor was used. He is experiencing pain in his left elbow and left shoulder, which started a few months ago. Hand pain has resolved on methotrexate. Morning stiffness is 30 minutes. No recent infections. [facility] Medical History Skin lesion DISH (diffuse idiopathic skeletal hyperostosis) Mild major depression, single episode Hypovitaminosis D Thoracic spine pain Lumbar pain Right knee pain Left knee pain Neck pain Polyarthralgia Fatigue Pure hypercholesterolemia with target low density lipoprotein (LDL) cholesterol less than 70 mg/dL Insomnia CAD (coronary artery disease) Essential hypertension Surgical History S/P colonoscopic polypectomy S/P CABG x 3 Family History Father Diabetes Hypertension CVD (cardiovascular disease) COPD (chronic obstructive pulmonary disease) Mother Diabetes Hypertension CVD (cardiovascular disease) Cancer Family/Other Mental health disorder Sister Breast cancer Social History Housing: Apartment Alcohol intake: current Alcohol intake frequency: a few times a month Alcohol type: beer Patient Tobacco Use Status: Never used Tobacco e-Cigarette/Vaping Use: Never Used Second Hand Smoke Exposure: No service: No Current occupational status: disabled Cognitive needs: No Hearing needs: No Vision needs: Yes Physical Exam Vital Signs: Last Vital Signs Pulse 78 03/04/25 08:19 BP 110/80 03/04/25 08:19 Pulse Ox 100 03/04/25 08:19 Oxygen Delivery Method Room Air 03/04/25 08:19 BMI result Body Mass Index 25.4 Const Other: General: Comfortable CVS: RRR Respiratory: clear to auscultation bilaterally. Good respiratory effort Skin: No lesions seen MSK: Tender to palpate right 3rd McP. No synovitis. No triggering observed. Tender left shoulder and left lateral epicondyl. Pain in left shoulder with ROM. Pain at left elbow with resisted wrist extension. Normal range of motion of upper and lower extremities. No MTP pain. Assessment & Plan Assessment & Plan (1) Rheumatoid arthritis: Comment: Controlled on monotherapy with MTX. Rheumatology hx: Seronegative RA mainly affecting hands with synovitis and pain in feet. MTX 08/2024- Code(s): M06.9 - Rheumatoid arthritis, unspecified Category: Medical Qualifiers: Rheumatoid arthritis location: unspecified site Rheumatoid factor presence: unspecified presence Qualified Code(s): M06.9 - Rheumatoid arthritis, unspecified Plan: Continue methotrexate 12.5mg once weekly and folic acid 1 mg daily Labs for drug monitoring UTD 02/2025. Labs due every 3 months Immunization: he will get flu vaccine. He does not want covid-19 vaccine. He will hold MTX the week he gets the flu shot. Return to clinic in 3 months (2) [facility] (current[facility] drug therapy: Code(s): Z79.899 - Other exterminator termite (current) drug therapy Category: Medical Plan: See above (3) Left lateral epicondylitis: Code(s): M77.12 - Lateral epicondylitis, left elbow Category: Medical Plan: PT ordered Elbow support band rx RTC 3 months (4) Left shoulder pain: Comment: suspect rotator cuff tendonitis Code(s): M25.512 - Pain in left shoulder Category: Medical Qualifiers: Chronicity: chronic Qualified Code(s): M25.512 - Pain in left shoulder; G89.29 - Other chronic pain Plan: PT ordered RTC 3 months Orders: Orders Complete Blood Count Auto Diff 3 Months Z. - Other [facility] (current) drug therapy Aspartate Amino Transferase 3 Months Z79. - Other [facility] (current) drug therapy Creatinine 3 Months Z.89 - Other extermin[facility]ite (current) drug therapy Alanine Aminotransferase 3 Months Z.89 - Other [facility]current) drug therapy C Reactive Protein 3 Months Z. - Other extermin[facility] termite (current) drug therapy Erythrocyte Sedimentation Rate 3 Months Z. - Other extermin[facility] termite (current) drug therapy PT Evaluation and Treatment Today M25.512 - Pain in left shoulder, M75.82 - Other shoulder lesions, left shoulder, M77.12 - Lateral epicondylitis, left elbow Medications: New arm brace As directed left elbow support band Dx: lateral epicondylitis 1 ea 0RF Coding Level of Care Code Est Pt Level 4 (51878) Complex EM visit Add On G2211 Diagnoses Rheumatoid arthritis, involving unspecified site, unspecified whether rheumatoid factor present M06.9 Rheumatoid arthritis location: unspecified site Rheumatoid factor presence: unspecified presence Other exterminator termite (current) drug therapy Z79.899 Left lateral epicondylitis M77.12 Chronic left shoulder pain M25.512; G89.29 Chronicity: chronic
== END 2025-03-04 08:47 | disposition home or self-care (01) ==
LOC: HO.RHES 07:40
PROVIDERS: PCP Internal Medicine; Visit Provider Internal Medicine Rheumatology
DX: M06.9 Rheumatoid arthritis, unspecified (principal); Z79.899 Other long term (current) drug therapy; M77.12 Lateral epicondylitis, left elbow; M25.512 Pain in left shoulder; G89.29 Other chronic pain
CPT/HCPCS: 99214

== ENCOUNTER → 2025-03-04 07:40 | Outpatient (BNVA) | payer OTHER, SELFPAY | PROVIDERS: PCP Internal Medicine; Visit Provider Internal Medicine Rheumatology | DX: M06.09 Rheumatoid arthritis without rheumatoid factor, multiple sites (principal); M77.12 Lateral epicondylitis, left elbow; M25.512 Pain in left shoulder; G89.29 Other chronic pain; Z79.899 Other long term (current) drug therapy | CPT/HCPCS: 99212 ==

== ENCOUNTER 2025-03-05 07:47 | Outpatient (AMB) | payer OTHER, SELFPAY ==
[2025-03-05 07:49] VITALS: BP 128/68; PULSE 90; O2SAT 98; BMI 25.4
--- NOTE | 2025-03-05 07:49 | A.OFFVIS_ITS ---
Vital Signs 03/05/25 07:49 Height 5 ft 5 in Weight 152 lb 8.958 oz BMI 25.4 BP 128/68 Blood Pressure Location Lt brachial Position Sitting Pulse 90 Pulse Source Pulse Oximeter Pulse Oximetry (%) 98 Oxygen Delivery Method Room Air Intake Visit Reasons: T2DM Intake Note: Patient present today for Type 2 Diabetes Mellitus Last Diabetic eye exam: Last exam was on 04/2024, he has an upcoming appt in 04/2025. Last Podiatry Visit: Last visit was on 02/2025 Random Glucose: 178 mg/dl HgA1C: 7.3% 12/25/24 Court Specialist Required: Yes Court Specialist Language: Truck Engine Assembler Services: Court Specialist Present Court Specialist Name: Niko [id number] Information Interpreted: non-clinical & clinical Accompanied by: Self / Same As Patient Allergies No Known Allergies Allergy (Verified 03/05/25 07:54) Medication List - Last Reconciled 03/05/25 by Ann-Marie Reza PA-C acetaminophen 500 mg PO Q6H PRN 30 days amlodipine 5 mg PO DAILY 90 days arm brace As directed left elbow support band Dx: lateral epicondylitis aspirin 81 mg PO DAILY atorvastatin 80 mg PO BEDTIME 90 days baclofen 5 mg PO BEDTIME 90 days blood sugar diagnostic (FreeStyle Lite Strips) Use daily As directed to check blood glucose blood-glucose meter (FreeStyle Lite Meter kit) Use daily As directed to check blood sugars cane As directed carvedilol 12.5 mg PO BID 90 days cholecalciferol (vitamin D3) 25 mcg PO DAILY 90 days empagliflozin (Jardiance) 25 mg PO DAILY 90 days fluocinolone acetonide oil 0.01% (DermOtic Oil) 5 drps otic (ears) BID 7 days fluoxetine 10 mg PO DAILY 90 days folic acid 1 mg PO DAILY glucose (Dex4 Glucose) 16 grams (4 x 4 gram) PO Q15M PRN hydrocortisone 1% (Anti-Itch (hydrocortisone)) 1 appl topical TID PRN 2 weeks lancets (FreeStyle Lancets) use daily as directed to check blood glucose meloxicam 15 mg PO DAILY 90 days metformin 1,000 mg PO BID 90 days methotrexate sodium 12.5 mg (5 x 2.5 mg) PO QWEEK 12 weeks pioglitazone 45 mg PO DAILY 90 days semaglutide (Ozempic) 0.5 mg (0.736 mL) subcut QWEEK trazodone 50 mg PO BEDTIME PRN 90 days HPI HPI T2DM: Details: Patient is a 64-year-old male with a significant past medical history of rheumatoid arthritis, dish, depression, CAD, hypertension, hyperlipidemia and type 2 diabetes presenting today for initial consult regarding diabetes. Court Specialist Madie Carranza: Dm-his most recent A1c is 7.3 (previously 8.5). He states that he was diagnosed around 2014. He is currently on metformin 1000 mg twice a day, pioglitazone 45 mg daily, Jardiance 25 mg daily and was recently started on Ozempic 0.25 mg weekly. He is doing well. No side effects of low blood sugars -Trulicity cause nausea and vomiting. He monitors his blood sugars only once a week because he does not like sticking his fingers. He states it is painful and he does not like needles. He states when he checks his blood sugars are around 150-200 (not fasting). Denies hypoglycemic events. Correct low blood sugars with candy, soda, or juice He does have microalbuminuria. He has a fam hx of t1dm and t2dm. CV: Blood pressure today in the office is 128/68. He is currently on carvedilol 12.5 mg weekly, amlodipine 5 mg daily. Not on an DEB inhibitor. He is on atorvastatin 80 mg for cholesterol control. His LDL goal is less than 70. He is well-controlled. LFTs WNL. [facility] Medical History (Reviewed 03/04/25 @ 08:21 by Matilde Cisneros [facility]) Skin lesion DISH (diffuse idiopathic skeletal hyperostosis) Mild major depression, single episode Hypovitaminosis D Thoracic spine pain Lumbar pain Right knee pain Left knee pain Neck pain Polyarthralgia Fatigue Pure hypercholesterolemia with target low density lipoprotein (LDL) cholesterol less than 70 mg/dL Insomnia CAD (coronary artery disease) Essential hypertension Surgical History S/P colonoscopic polypectomy S/P CABG x 3 Family History Father Diabetes Hypertension CVD (cardiovascular disease) COPD (chronic obstructive pulmonary disease) Mother Diabetes Hypertension CVD (cardiovascular disease) Cancer Family/Other Mental health disorder Sister Breast cancer Social History (Reviewed 03/05/25 @ 07:55 by ORLANDO Kapadia Housing: Apartment Alcohol intake: current Alcohol intake frequency: a few times a month Alcohol type: beer Patient Tobacco Use Status: Never used Tobacco e-Cigarette/Vaping Use: Never Used Second Hand Smoke Exposure: No service: No Current occupational status: disabled Cognitive needs: No Hearing needs: No Vision needs: Yes Physical Exam Vital Signs: Last Vital Signs Pulse 90 03/05/25 07:49 BP 128/68 03/05/25 07:49 Pulse Ox 98 03/05/25 07:49 Oxygen Delivery Method Room Air 03/05/25 07:49 BMI result Body Mass Index 25.4 Const Orientation/consciousness: patient oriented x3 HEENT Ears: hearing grossly normal bilaterally Neck Thyroid: Thyroid normal Lymphatic: no lymphadenopathy noted Resp Auscultation: clear to auscultation bilaterally Cardio Rate: regular rate Rhythm: regular rhythm Heart sounds: S1 normal heart sound present and S2 normal heart sound present Skin General skin exam: no rashes or lesions noted Neuro General: patient oriented x3, gait normal and no focal motor deficits Results Reviewed Results Reviewed: Laboratory Last Values Glucose (Clinic) 178 mg/dL (60-115) H 03/05/25 07:56 Assessment & Plan Assessment & Plan (1) Uncontrolled type 2 diabetes mellitus with hyperglycemia: Code(s): E11.65 - Type 2 diabetes mellitus with hyperglycemia Category: Medical Plan: increase ozempic to 0.5 mg weekly continue current plan otherwise will call me if any lows and will plan to lower actos labs in 3 months, follow up at that time as well (2) Essential hypertension: Code(s): I10 - Essential (primary) hypertension Category: Medical Plan: Continue current regimen (3) Pure hypercholesterolemia with target low density lipoprotein (LDL) cholesterol less than 70 mg/dL: Code(s): E78.00 - Pure hypercholesterolemia, unspecified Category: Medical Plan: At goal. Continue current regimen Orders: Orders Lipid Panel Today E11.65 - Type 2 diabetes mellitus with hyperglycemia, E78.00 - Pure hypercholesterolemia, unspecified, I10 - Essential (primary) hypertension Microalbumin, Random (w Creat) Today E11.65 - Type 2 diabetes mellitus with hyperglycemia, E78.00 - Pure hypercholesterolemia, unspecified, I10 - Essential (primary) hypertension Comprehensive [place]. Panel Fast Today E11.65 - Type 2 diabetes mellitus with hyperglycemia, E78.00 - Pure hypercholesterolemia, unspecified, I10 - Essential (primary) hypertension Hemoglobin A1c Today E11.65 - Type 2 diabetes mellitus with hyperglycemia, E78.00 - Pure hypercholesterolemia, unspecified, I10 - Essential (primary) hypertension, R73.01 - Impaired fasting glucose Medications: New semaglutide (Ozempic) 0.5 mg (0.736 mL) subcut QWEEK 3 mL 4RF Discontinued semaglutide (Ozempic) for 4 weeks; then increase to 0.5 mg every week Discontinued Reason: Doctor's Order 0.25 mg (0.368 mL) subcut QWEEK 3 mL 3RF Coding Level of Care Code Est Pt Level 4 (18515) Complex EM visit Add On G2211 Diagnoses Uncontrolled type 2 diabetes mellitus with hyperglycemia E11.65 Essential hypertension I10 Pure hypercholesterolemia with target low density lipoprotein (LDL) cholesterol less than 70 mg/dL E78.00
--- OUTSIDE RECORDS SUMMARY | 2025-03-05 07:50 | XMS_ITS | Clinical Summary ---
Author Organization [facility] Facility Address [address] [place] [address] Care Team Providers Care Svp Research And Strategic Analysis Name Role Phone Sylvia Denny MD Primary Care Provider [phone] Allergies No known active allergies Medications Acetaminophen [...] the evening. 06/25/2022 Active ergocalciferol 1.25 MG (41422 UT) capsule Take 50,000 Units by mouth 1 (one) time per week Active Active Problems Problem Noted Date Diagnosed Date Hypertension 08/19/2023 Dyslipidemia 08/19/2023 Diabetes mellitus, not otherwise specified 08/18 Atherosclerotic heart diseas e of [place] coronary artery without angina pectoris, not otherwise [...] to complete this topic Insurance Care Teams Svp Research And Strategic Analysis Relationship Specialty Start Date End Date Sylvia Denny MD [address] [place] [address] PCP - General Internal Medicine 05/29/22
--- OUTSIDE RECORDS SUMMARY | 2025-03-05 07:50 | XMS_ITS | Clinical Summary ---
Author Organization 175 [facility] Address [address] [place] [address] Phone Care Team Providers Care Sewing Machine Operator Plastic Zipper Name Role Phone Sylvia Peters MD Primary Care Provider [phone] Allergies No known active allergies Encounters Date Type Department Care Team Description 02/08/2025 8:30 AM EDT Office Visit Orthopedic Surgery [facility] [address] [facility] [address] [place] [address] Clinton Sierra, [place] Controlled type 2 [...] Care Team (Late st Contact Info) Description 07/06/2025 9:10 AM EST Office Visit [facility] [address] [place] [address] Donna Ribera NP [address] [place] [address] [address]osa [address] [place] [address] Health Maintenance Due Date Last Done Comments [...] BMP Blood Test 09/22/2024 09/23/2023 COVID-19 Vaccine ( - 2023-2 5 season) 2025 Influenza Vaccine (#1) 2025 [...] to complete this topic Insurance Care Teams Sewing Machine Operator Plastic Zipper Relationship Specialty Start Date End Date Sylvia Peters MD [address] [place] [address] , [address] [facility]ician Associ D/B/A: [facility] Gilbert DC PCP - General Internal Medicine 07/09/24
[2025-03-05 08:00] LABS: Glucose, Whole Blood 178 mg/dL (60-115)
== END 2025-03-05 08:21 | disposition home or self-care (01) ==
LOC: HO.ENCR 07:47
PROVIDERS: PCP Internal Medicine; Visit Provider Physician Assistant
DX: E11.65 Type 2 diabetes mellitus with hyperglycemia (principal); I10 Essential (primary) hypertension; E78.00 Pure hypercholesterolemia, unspecified

== ENCOUNTER → 2025-03-05 07:47 | Outpatient (BNVA) | payer OTHER, SELFPAY | PROVIDERS: PCP Internal Medicine; Visit Provider Physician Assistant | DX: E11.65 Type 2 diabetes mellitus with hyperglycemia (principal); I10 Essential (primary) hypertension; M06.9 Rheumatoid arthritis, unspecified; I25.10 Atherosclerotic heart disease of native coronary artery without angina pectoris; E78.5 Hyperlipidemia, unspecified; E78.00 Pure hypercholesterolemia, unspecified | CPT/HCPCS: 82947; 99212 ==

== ENCOUNTER 2025-05-25 07:22 | Outpatient (REF) | payer OTHER, SELFPAY ==
--- OUTSIDE RECORDS SUMMARY | 2025-05-25 07:25 | XMS_ITS | Clinical Summary ---
Author Organization [facility] Facility Address [address] [place] [id number] Care Team Providers Care Instructor Business Education Name Role Phone Sylvia Denny MD Primary Care Provider [phone] Allergies No known active allergies Medications Acetaminophen [...] the evening. 06/25/2022 Active ergocalciferol 1.25 MG (72650 UT) capsule Take 50,000 Units by mouth 1 (one) time per week Active Active Problems Problem Noted Date Diagnosed Date Hypertension 08/19/2023 Dyslipidemia 08/19/2023 Diabetes mellitus, not otherwise specified 08/18 Atherosclerotic heart diseas e of [place] coronary artery without angina pectoris, not otherwise [...] to complete this topic Insurance Care Teams Instructor Business Education Relationship Specialty Start Date End Date Sylvia Denny MD [address] [place] [address] PCP - General Internal Medicine 05/29/22
--- OUTSIDE RECORDS SUMMARY | 2025-05-25 07:25 | XMS_ITS | Clinical Summary ---
Author Organization 175 [facility] Address [address] [place] [address] Phone Care Team Providers Care Stratigraphy Teacher Name Role Phone Sylvia Peters MD Primary Care Provider [phone] Allergies No known active allergies Social History [...] Description 07/06/2025 9:10 AM EST Office Visit [facility] - [facility] [address] [place] [address] Donna Ribera NP [address] [place] [address] Dr [address]osa [address] [place] [address] Health Maintenance Due Date Last Done Comments Colorectal Cancer Screening: Colonoscopy 1960 Diabetes: Annual Foot Exam 1970 Diabetes: Annual Retina Eye Exam 1970 DTaP,Tdap,and Td Vaccines (1 - Tdap) 1979 Pneumococcal Vaccine: 50+ Ye ars (1 of 2 - PCV) 1979 RSV Immunization Adult Patie nts (1 - Risk 50-74 years 1-dose series) 2010 Zoster Vaccines (1 of 2) 2010 Cholesterol Screening (Lipid Panel) 05/13/2022 HIV Screening 05/13/2022 Hepatitis C Screening 05/13/2022 Social Influencers of Health Screening 05/13/2022 Depression Screening 06/03/2024 Diabetes: Annual Urine Albumin-Creatinine Ratio (uACR) 09/15/2024 Diabetes: Blood Sugar Contro l Test (HGBA1C) 09/15/2024 Diabetes: Annual GFR (Glomer ular Filtration Rate) 09/22/2024 09/23/2023 Hypertension/CHF/CAD Annual BMP Blood Test 09/22/2024 09/23/2023 COVID-19 Vaccine ( - 2024-2 6 season) 2025 Influenza Vaccine (#1) 2025 HIB [...] patient's age to complete this topic Insurance [place] [place] [address] HEALTH PLAN [facility] PLAN Care Teams Stratigraphy Teacher Relationship Specialty Start Date End Date Sylvia Peters MD [address] [place] [address] , [address] Physician Associ D/B/A: [facility] HERACLIO Hunt PCP - General Internal Medicine 07/09/24
[2025-05-25 07:39] LABS: MANUAL DIFF FLAG NO
[2025-05-25 07:50] LABS: Hematocrit 45.8 % (42.0-52.0); Hemoglobin 15.4 g/dl (14.0-18.0); Imm Gran Abs Auto 0.03 X10*3/uL (0.00-0.03); Imm Gran Pct Auto 0.4 % (0.0-0.4); Lymphocytes Absolute Auto 2.4 X10*3/uL (1.2-4.9); Mean Corpuscular HGB Conc 33.6 g/dl (31.0-36.0); Mean Corpuscular Hemoglobin 32.6 pg (27.0-33.0); Mean Corpuscular Volume 97.0 fL (80.0-98.0); NRBC Abs Auto 0.000 X10*3/uL (0.0-0.012); NRBC Pct Auto 0.0 /100WBC (0.0-0.2); Platelet Count 237 X10*3/uL (160-400); Red Blood Count 4.72 X10*6/uL (4.60-5.80); White Blood Count 6.7 X10*3/uL (4.8-10.8)
[2025-05-25 08:22] LABS: Alanine Aminotransferase 30 U/L (0-40); Albumin Level 4.7 g/dL (3.5-5.0); Alkaline Phosphatase 95 U/L (39-117); Anion Gap 11 (12-20); Aspartate Amino Transferase 29 U/L (5-37); Blood Urea Nitrogen 16 mg/dL (9-16); Calcium 9.9 mg/dL (8.4-10.2); Carbon Dioxide 31 mmol/L (22-29); Chloride 103 mmol/L (96-108); Cholesterol 113 mg/dL (<200); Estimated Glomerular Filt Rate > 60; HDL Cholesterol 46 mg/dL (>40); Potassium 4.9 mmol/L (3.3-5.1); Sodium 140 mmol/L (135-145); Total Protein 7.6 g/dL (6.5-8.0); Triglycerides 78 mg/dL (<150)
[2025-05-25 09:03] LABS: Microalbum/Creatinine Ratio Ur 52.6 ug/mg cr (<30)
== END 2025-05-25 07:23 ==
LOC: HO.LAB 07:22
PROVIDERS: Internal Medicine Rheumatology; Absent Provider Physician Assistant; PCP Internal Medicine; Visit Provider Internal Medicine
DX: E11.65 Type 2 diabetes mellitus with hyperglycemia (principal); E78.00 Pure hypercholesterolemia, unspecified; I10 Essential (primary) hypertension; E55.9 Vitamin D deficiency, unspecified; R80.9 Proteinuria, unspecified; Z79.899 Other long term (current) drug therapy
CPT/HCPCS: 36415; 80053; 80061; 82043; 82306; 82570; 83036; 85025; 85652; 86140

== ENCOUNTER 2025-05-31 07:31 | Outpatient (AMB) | payer OTHER, SELFPAY ==
--- NOTE | 2025-05-31 07:34 | MHC.PC.OV ---
Vital Signs 05/31/25 07:35 Height 5 ft 5 in Weight 154 lb BMI 25.6 BP 118/64 Blood Pressure Location Lt brachial Position Sitting Respiration 18 Pulse 82 Pulse Source Pulse Oximeter Temp 98.8 F Temp Source Temporal Artery Scan Pulse Oximetry (%) 97 Oxygen Delivery Method Room Air Intake Visit Reasons: dm Blanket Weaver Required: No Accompanied by: Self / Same As Patient Allergies No Known Allergies Allergy (Verified 05/31/25 07:55) Medication List - Last Reconciled 05/31/25 by Sylvia Peters MD acetaminophen 500 mg PO Q6H PRN 30 days amlodipine 5 mg PO DAILY 90 days arm brace As directed left elbow support band Dx: lateral epicondylitis aspirin 81 mg PO DAILY atorvastatin 80 mg PO BEDTIME 90 days baclofen 5 mg PO BEDTIME 90 days blood sugar diagnostic (FreeStyle Lite Strips) Use daily As directed to check blood glucose blood-glucose meter (FreeStyle Lite Meter kit) Use daily As directed to check blood sugars cane As directed carvedilol 12.5 mg PO BID 90 days cholecalciferol (vitamin D3) 25 mcg PO DAILY 90 days empagliflozin (Jardiance) 25 mg PO DAILY 90 days fluoxetine 10 mg PO DAILY 90 days folic acid 1 mg PO DAILY glucose (Dex4 Glucose) 16 grams (4 x 4 gram) PO Q15M PRN lancets (FreeStyle Lancets) use daily as directed to check blood glucose meloxicam 15 mg PO DAILY 90 days metformin 1,000 mg PO BID 90 days methotrexate sodium 12.5 mg (5 x 2.5 mg) PO QWEEK 12 weeks pioglitazone 45 mg PO DAILY 90 days tirzepatide (Mounjaro) 2.5 mg (0.5 mL) subcut QWEEK trazodone 50 mg PO BEDTIME PRN 90 days Tobacco use date assessed: 01/26/25 Fall risk assessment: No Falls in past year Last assessed Fall Risk: 05/31/25 Dental Screening Dental Screen Date: 06/18/24 HPI HPI Comments History of Present Illness Details This is a 64-year-old male with diabetes mellitus type 2, hypertension, pure hypercholesterolemia, mild major depression and seronegative rheumatoid arthritis that comes today for follow-up on his conditions. A1c within goal being 6.7% this month. He follows with endocrinology. Blood pressure also within goal being less than 130/80. LDL within goal being less than 70. Depression stable with trazodone as needed which also helps for his insomnia. Complains about bilateral hand pain and weakness most likely due to rheumatoid arthritis which is follow by Rheumatology. No side effects from methotrexate as of now. He will benefit from using a cane due to polyarthralgia. [facility] Medical History (Updated 05/31/25 @ 08:41 by Sylvia Peters MD) Skin lesion DISH (diffuse idiopathic skeletal hyperostosis) Mild major depression, single episode Hypovitaminosis D Thoracic spine pain Lumbar pain Right knee pain Left knee pain Neck pain Polyarthralgia Fatigue Pure hypercholesterolemia with target low density lipoprotein (LDL) cholesterol less than 70 mg/dL Insomnia CAD (coronary artery disease) Essential hypertension Surgical History S/P colonoscopic polypectomy S/P CABG x 3 Family History Father Diabetes Hypertension CVD (cardiovascular disease) COPD (chronic obstructive pulmonary disease) Mother Diabetes Hypertension CVD (cardiovascular disease) Cancer Family/Other Mental health disorder Sister Breast cancer Social History Housing: Apartment Alcohol intake: current Alcohol intake frequency: a few times a month Alcohol type: beer Patient Tobacco Use Status: Never used Tobacco e-Cigarette/Vaping Use: Never Used Second Hand Smoke Exposure: No service: No Current occupational status: disabled Cognitive needs: No Hearing needs: No Vision needs: Yes Questionnaire Thrive Questionnaire Date Thrive assessed: 06/18/24 CHANTE-7 AMB Questionnaire CHANTE-7 Date CHANTE - 7 assessed: 06/18/24 Source: Developed by Drs. David Murillo, Mahi Kunz, Baldomero Magana and colleagues, with an educational tammy from [employer]. Review of Systems Const All systems reviewed & are unremarkable except as noted in HPI and below Card Denies chest pain at rest, Denies chest pain with activity, Denies edema, Denies irregular heart rhythm, Denies claudication, Denies dyspnea, Denies dyspnea on exertion, Denies orthopnea, Denies paroxysmal nocturnal dyspnea and Denies slow heart rate Resp Denies cough, Denies dyspnea and Denies dyspnea on exertion Physical exam (Primary Care) Vital Signs: Last Vital Signs Temp 98.8 F 05/31/25 07:35 Pulse 82 05/31/25 07:35 Resp 18 05/31/25 07:35 BP 118/64 05/31/25 07:35 Pulse Ox 97 05/31/25 07:35 Oxygen Delivery Method Room Air 05/31/25 07:35 BMI result Body Mass Index 25.6 Tobacco/Smoking Status: Tobacco use Status Tobacco use date assessed 01/26/25 05/31/25 07:35 Patient Tobacco Use Status Never used Tobacco 05/31/25 07:35 e-Cigarette/Vaping Use Never Used 05/31/25 07:35 Thrive Assessment: Date of Thrive Assessment Date Thrive assessed 06/18/24 05/31/25 07:35 Resp Effort & Inspection: normal respiratory effort Auscultation: clear to auscultation bilaterally Cardio Jugular venous distension: no JVD Rate: regular rate Rhythm: regular rhythm Heart sounds: S1 normal heart sound present and S2 normal heart sound present Extrem General: Yes full ROM Coding Level of Care Code Add On Preventative Visit Only Diagnoses Mild major depression, single episode F32.0 Essential hypertension I10 Pure hypercholesterolemia with target low density lipoprotein (LDL) cholesterol less than 70 mg/dL E78.00 Seronegative rheumatoid arthritis M06.00 Diabetes mellitus E11.9 Time Spent (min) 22 Assessment & Plan Assessment & Plan (1) Mild major depression, single episode: Code(s): F32.0 - Major depressive disorder, single episode, mild Category: Medical (2) Essential hypertension: Code(s): I10 - Essential (primary) hypertension Category: Medical (3) Pure hypercholesterolemia with target low density lipoprotein (LDL) cholesterol less than 70 mg/dL: Code(s): E78.00 - Pure hypercholesterolemia, unspecified Category: Medical (4) Seronegative rheumatoid arthritis: Code(s): M06.00 - Rheumatoid arthritis without rheumatoid factor, unspecified site Category: Medical (5) Diabetes mellitus: Code(s): E11.9 - Type 2 diabetes mellitus without complications Category: Medical Plan Continue same medications. Follow-up with endocrinology for his diabetes mellitus. Follow-up with Rheumatology for his rheumatoid arthritis. Keep A1c less than 7%. Keep blood pressure less than 130/80. Keep LDL less than 70. Orders: Orders Lipid Panel 4 Months E78.5 - Hyperlipidemia, unspecified Microalbumin, Random (w Creat) 4 Months R80.9 - Proteinuria, unspecified Vitamin B12 and Folate 4 Months E53.8 - Deficiency of other specified B group vitamins Comprehensive [place]. Panel Fast 4 Months M06.9 - Rheumatoid arthritis, unspecified Vitamin D 25-OH Total 4 Months E55.9 - Vitamin D deficiency, unspecified Medications: Refilled cane As directed 1 ea 0RF M25.561 - Pain in right knee, M25.562 - Pain in left knee, M48.10 - Ankylosing hyperostosis [[place]], site unspecified, M54.5 - Low back pain, M54.6 - Pain in thoracic spine
--- OUTSIDE RECORDS SUMMARY | 2025-05-31 07:34 | XMS_ITS | Clinical Summary ---
Author Organization [facility] Facility Address [address] [place] [address] Care Team Providers Care Operations Accountant Name Role Phone Sylvia Denny MD Primary Care Provider [phone] Allergies No known active allergies Medications Acetaminophen [...] the evening. 06/25/2022 Active ergocalciferol 1.25 MG (70168 UT) capsule Take 50,000 Units by mouth 1 (one) time per week Active Active Problems Problem Noted Date Diagnosed Date Hypertension 08/19/2023 Dyslipidemia 08/19/2023 Diabetes mellitus, not otherwise specified 08/18 Atherosclerotic heart diseas e of [place] coronary artery without angina pectoris, not otherwise [...] to complete this topic Insurance Care Teams Operations Accountant Relationship Specialty Start Date End Date Sylvia Denny MD [address] [place] [address] PCP - General Internal Medicine 05/29/22
--- OUTSIDE RECORDS SUMMARY | 2025-05-31 07:34 | XMS_ITS | Clinical Summary ---
Author Organization 175 [facility] Address [address] [place] [address] Phone Care Team Providers Care Staffing Director Name Role Phone Sylvia Peters MD Primary Care Provider [phone] Allergies No known active allergies Social History [...] Description 07/06/2025 9:10 AM EST Office Visit [facility] - [facility] [address] [place] [address] Donna Ribera NP [address] [place] [address] [address] [place] [address] Health Maintenance Due Date Last [...] patient's age to complete this topic [place] [address] [place] [address] HEALTH PLAN [facility] PLAN Care Teams Staffing Director Relationship Specialty Start Date End Date Sylvia Peters MD [address] [place] [address] , [address] Physician Associ D/B/A: [facility] HERACLIO Hunt PCP - General Internal Medicine 07/09/24
[2025-05-31 07:35] VITALS: BP 118/64; PULSE 82; RESP 18; TEMP 37.1; O2SAT 97; BMI 25.6
== END 2025-05-31 08:05 | disposition home or self-care (01) ==
LOC: HO.HMCH 07:32
PROVIDERS: PCP Internal Medicine; Visit Provider Internal Medicine
DX: F32.0 Major depressive disorder, single episode, mild (principal); I10 Essential (primary) hypertension; E78.00 Pure hypercholesterolemia, unspecified; M06.00 Rheumatoid arthritis without rheumatoid factor, unspecified site; E11.9 Type 2 diabetes mellitus without complications

== ENCOUNTER → 2025-05-31 07:31 | Outpatient (BNVA) | payer OTHER, SELFPAY | PROVIDERS: PCP Internal Medicine; Visit Provider Internal Medicine | DX: E11.9 Type 2 diabetes mellitus without complications (principal); I10 Essential (primary) hypertension; F32.0 Major depressive disorder, single episode, mild; E78.00 Pure hypercholesterolemia, unspecified; M06.00 Rheumatoid arthritis without rheumatoid factor, unspecified site | CPT/HCPCS: 99212 ==